=== PATIENT | female | born 1940 | race Caucasian/White ===

== ENCOUNTER 2016-12-27 10:48 | Inpatient (IN) | payer MEDICARE, MEDICAID ==
[~2016-12-27] VITALS: Ht 160 cm; Wt 111.6 kg
[~2016-12-27 10:48] MED LIST: ARIP5TAB13 PO; ASPI325T14 PO; ATOR40TA50 PO; CARV6.252 PO; FURO20TA3 PO; GABA400C10 PO; INSU100V SQ; INSU100V8 SQ; LISI-410 PO; LORA1TAB PO; MONT10TA9 PO; NITR0.4T SL; OXYB5TAB7 PO; PANT40TA5 PO; POTA20TA89 PO; POTA40LI3 PO; SERT100T5 PO; SOLI5TAB2 PO; SULF500T7 PO; TRAZ50TA18 PO
[2016-12-27] MEDS ORDERED: LOVENOX SQ STA (11:21)
[2016-12-27] MEDS ORDERED: RESTORIL PO PRN (11:30)
[2016-12-27] MEDS ORDERED: ZOFRAN IV PRN (11:30)
[2016-12-27] MEDS ORDERED: NS 1000ML 1,000 ML IV ONE (11:30)
[2016-12-27] MEDS: HUMULIN R SUBCUT SCH ×2 (12:00→18:00)
[2016-12-27] MEDS ORDERED: ATIVAN PO PRN (12:00)
--- NOTE | 2016-12-27 12:01 | PRM.PN ---
Course Notes 12/27/2016 1154 Because this patient had an aortic valve surgery at [facility] on Nov 05, 2016, discharge records from the facility as well as the last visit to the cardiothoracic surgeon have been requested and received. It appears there has been some miscommunication about her follow up with a fractionation plant supervisor, although she did stay for rehabilitation in [place] before her follow up with Dr. Childers on Dec 08, 2016. After that appointment, she was released to return home and follow with her previous fractionation plant supervisor, Dr. Capo Nuñez, in [place]. The patient wishes to not see him anymore, and does request that Dr. Booth accept her as a patient now. Records received indicate that at no time since her aortic valve procedure was she placed on anticoagulation therapy. At this time, the patient is being admitted to [facility] Med/Surg 312 for management of inadequate anticoagulation after mechanical heart valve and congestive heart failure. TAVO PAZ NP Dec 27, 2016 12:01
[2016-12-27 12:24] LABS: BASOPHIL % 0.5 % (0.0-0.2); EOSINOPHIL # 0.2 10^3/uL (0.0-0.2); EOSINOPHIL % 2.6 % (0.0-5.0); HEMOGLOBIN 10.7 g/dL (12.0-15.0); LYMPHOCYTES # 1.8 10^3/uL (1.0-4.8); LYMPHOCYTES % 24.1 % (24.0-44.0); MEAN CELL HGB 27.7 pg (26-34); MEAN CELL HGB CONCENTRATION 30.8 g/dL (33-37); MEAN CORP VOLUME 89.9 fL (78-100); MEAN PLATELET VOLUME 9.9 fL (7.8-11.0); MONOCYTES # 0.6 10^3/uL (0.3-0.8); MONOCYTES % 7.5 % (5.0-12.0); NEUTROPHILS % 65.3 % (41.0-85.0); PLATELET COUNT 264 10^3/uL (150-400); RED CELL DISTRIBUTION WIDTH 15.1 % (11.5-14.5); WHITE BLOOD CELL 7.6 10^3/uL (4.5-11.0)
[2016-12-27 12:43] VITALS: BP 154/80
[2016-12-27 12:56] LABS: CALCIUM 9.5 mg/dL (8.4-10.5); CARBON DIOXIDE 31.9 mmol/L (20.0-32)
--- NOTE | 2016-12-27 13:11 | PCM.HP ---
History of Present Illness History of Present Illness s 76 yo lady had Mechanical AV replacement in 11/05/16 in [facility], sent for sever . released home to follow up with Cardiolgy. presented today with progressive SOB, Edema, and weakness, medications reviewed and showed no AC for the mechanical prsthesis. pt denies any education or therapy on AC with AVR. exam showed a healed sternum, Mechanical click and sings of CHF ( razia crackles, elevated JVD and LE edema) pt needs admission to manage AC with AVR ( mechanical) and manage CHF. r/o valve thrombosis.. Past Medical History Cardiac: AFIB (on Amio), CHF, HTN, Aortic Stenosis (s/p AVR, Oct 2016) Pulmonary: Asthma, COPD GI: GERD Heme/Onc: Anemia NOS Musculoskeletal: Chronic Low Back Pain Renal/: Chronic Renal Insuff Past Social History Smoke: No Alcohol: rare Lives: Alone Travel Hx EBOLA RISK:Travel to/contact w: No Is pt experiencing any Ebola s: No Review of Systems Constitutional: Malaise Eyes: Pain ENT: No: Ear pain, Ear discharge, Nose pain, Nose discharge, Nose congestion, Mouth pain, Mouth swelling, Throat pain, Throat swelling, Other Respiratory: Shortness of breath, SOB with excertion Cardiovascular: Chest Pain, Edema Gastrointestinal: No: Nausea, Vomiting, Abdominal Pain, Diarrhea, Constipation , Melena, Hematochezia, Other Genitourinary: No Dysuria, Frequency, No Incontinence, No Hematuria, No Retention, No Other Musculoskeletal: No: other, neck pain, shoulder pain, arm pain, back pain, hand pain, leg pain, foot pain Skin: Bruising, No: Rash, Lesions, Jaundice, Other Allergies: Coded Allergies: Penicillins (Verified Allergy, Unknown, 05/02/14) codeine (Verified Allergy, Unknown, 05/02/14) morphine (Verified Allergy, Unknown, 05/02/14) Scheduled Aripiprazole (Abilify), 5 MG PO DAILY, (Reported) Atorvastatin Calcium (Atorvastatin Calcium), 40 MG PO HS, (Reported) Carvedilol (Carvedilol), 6.25 MG PO BID, (Reported) Furosemide (Furosemide), 20 MG PO DAILY, (Reported) Gabapentin (Gabapentin), 400 MG PO THREE TIMES DAILY, (Reported) Insulin Glargine,Hum.rec.anlog (Lantus), 40 UNIT SQ BID, (Reported) Insulin Lispro (Humalog), 100 UNIT SQ BID, (Reported) Lisinopril (Lisinopril), 20 MG PO DAILY, (Reported) Oxybutynin Chloride (Oxybutynin Chloride), 5 MG PO BID, (Reported) Pantoprazole Sodium (Pantoprazole Sodium), 40 MG PO DAILY, (Reported) Potassium Chloride (Potassium Chloride), 40 MEQ PO DAILY, (Reported) Sertraline Hcl (Sertraline Hcl), 100 MG PO BID, (Reported) Solifenacin Succinate (Vesicare), 5 MG PO DAILY, (Reported) Sulfasalazine (Sulfazine), 500 MG PO BID, (Reported) Trazodone Hcl (Trazodone Hcl), 50 MG PO HS, (Reported) Scheduled PRN Lorazepam (Lorazepam), 1 MG PO TID PRN, (Reported) Nitroglycerin (Nitrostat), 0.4 MG SL Q 15 MINUTES X3 DOSE PRN for CHEST PAIN, ( Reported) VTE VTE Risk Total Score: 4 VTE Risk Score VTE Risk: Score 0-1 = Low Risk (Aggressive mobilization; early ambulation; no VTE prophylaxis required) Score 2: Moderate Risk (Intermittent/Pneumatic Compression Device OR Lovenox/Heparin/Coumadin) Score 3-4: High Risk (Intermittent/Pneumatic Compression Device AND Lovenox/Heparin/Coumadin) Score > or =5: Highest Risk (Intermittent/Pneumatic Compression Device AND Lovenox/Heparin/Coumadin) Antico:Hep/LMWH/Coum/Xarelto: Yes (wt based Lovenox) VTE VTE Present on Admission: Yes Currently receiving anticoagul: No VTE Risk Total Score: 4 Exam Vital Signs Vital Signs Date Time Temp Pulse Resp B/P (MAP) Pulse Ox O2 Delivery O2 Flow Rate FiO2 12/27/16 12:44 Room Air 12/27/16 12:43 98.0 87 18 154/80 (104) 94 General Appearance: Alert, Oriented X3, Other (morbidly obese) HEENT: Atraumatic, Other (4 cm JVD) Cardiovascular: Other (mechanical click) Abdominal: Normal bowel sounds Extremities: No clubbing Skin: No rash Assessment/Plan Assessment/Plan Assessment/Plan -AVR- October 2016, require AC with Coumadin. bridging with Lovenox. high risk for Valve thrombosis, check operative records to examine findings and post op EF for AVR -Acute CHF -DM -HTN -Obesity -CAD Problems: Patient History: Alzheimer's disease 32 MOTHER, , Age:92 G8 BROTHER, , Age:64 G8 SISTER, , Age:63 Asthma 19 CHILD, Age:54 Chronic obstructive pulmonary disease G8 SISTER, , Age:63 Congestive heart failure 32 MOTHER, , Age:92 33 FATHER, , Age:61 G8 BROTHER, , Age:64 G8 SISTER, , Age:63 19 CHILD, , Age:40 Diabetes mellitus G8 SISTER, , Age:63 19 CHILD, Age:51 FH: bipolar disorder 32 MOTHER, , Age:92 FH: heart disease 32 MOTHER, , Age:92 33 FATHER, , Age:61 G8 BROTHER, , Age:64 G8 SISTER, , Age:63 19 CHILD, , Age:48 19 CHILD, , Age:40 19 CHILD, Age:54 FH: ovarian cancer 19 CHILD, Age:54 FH: schizophrenia 32 MOTHER, , Age:92 FH: uterine cancer 19 CHILD, Age:54 Hypertension G8 SISTER, , Age:63 19 CHILD, Age:54 No Family History of: Cerebrovascular disorder Diabetes insipidus Parkinson's disease CLIFF BARRY MD Dec 27, 2016 13:10
--- NOTE | 2016-12-27 13:31 | DIREP ---
PROCEDURE:CHEST 2 VIEWS COMPARISON:None. INDICATIONS:AORTIC VALVE REPLACEMENT FINDINGS: LUNGS/PLEURA:There is small to moderate left pleural effusion. VASCULATURE:Normal. Unremarkable pulmonary vasculature. CARDIAC:The patient has had aortic valve replacement surgery. The heart size is enlarged. MEDIASTINUM:Normal. No visible mass or adenopathy. BONES:Normal. No fracture or visible bony lesion. OTHER:Monitor leads are in place. CONCLUSION: 1. The patient has had aortic valve replacement surgery. 2. Small to moderate left pleural effusion. Dictated by: Galindo Vallecillo M.D. on 12/27/2016 at 01:43 PM
--- NOTE | 2016-12-27 13:43 | PCM.EKG ---
[facility] Test Date: 2016-12-27 Test Time: 13:45:36 Pat Name: JATIN CHAPA Department: Room: 312 A Gender: F Nematologist: RT : 1940 Requested By: CLEMENT BOOTH Order Number: [id number] Reading MD: Clement Booth Measurements Intervals [place] Rate: 84 P: 84 MT: 200 QRS: -49 QRSD: 92 T: 62 QT: 412 QTc: 486 Interpretive Statements Sinus rhythm with occasional premature ventricular complexes Left axis deviation Abnormal ECG No previous ECG available for comparison NONSPECIFIC REPOLARIZATION ABNORMALITIES Electronically Signed On 01-11-2017 8:46:29 CDT by Clement Booth Please click the below link to view image of tracing.
[2016-12-27] MEDS: NITRO-BID TD SCH ×2 (14:02→21:39)
[2016-12-27 14:11] LABS: ANISOCYTOSIS 1+ (NEGATIVE); EOSINOPHIL 3 % (1-4); LYMPHOCYTE 22 % (25-36); MONOCYTE 8 % (3-9); SEGMENTED NEUTROPHILS 67 % (31-76)
--- NOTE | 2016-12-27 15:08 | NUR ---
ADMISSION COMPLETED. PT IS UP IN BED RESTING AT THIS TIME. NO COMPLAINTS OF PAIN OR DISCOMFORT AT THIS TIME. CALL LIGHT IN REACH
[2016-12-27 17:33] VITALS: BP 145/65
--- NOTE | 2016-12-27 18:58 | NUR ---
REPORT GIVEN TO ONCOMING SHIFT
--- NOTE | 2016-12-27 19:33 | PCM.EKG ---
[facility] Test Date: 2016-12-27 Test Time: 19:32:08 Pat Name: JATIN CHAPA Department: Room: 312 A Gender: F [place] Sheriff: FELICITY : 1940 Requested By: CLEMENT BOOTH Order Number: [id number] Reading MD: Clement Booth Measurements Intervals [place] Rate: 91 P: 97 ME: 206 QRS: -43 QRSD: 90 T: 66 QT: 386 QTc: [address] DEPRESSIONSinus rhythm with frequent premature ventricular complexes Left axis deviation Anterior infarct, age undetermined Abnormal ECG No previous ECG available for comparison Electronically Signed On 01-11-2017 8:47:44 CDT by Clement Booth Please click the below link to view image of tracing.
[2016-12-27 20:36] VITALS: BP 122/52
[2016-12-27] MEDS ORDERED: HUMALOG SQ SCH (21:00)
[2016-12-27] MEDS: LOVENOX SQ SCH (21:39)
[2016-12-27] MEDS: AZULFIDINE PO SCH (21:40)
[2016-12-27] MEDS: NEURONTIN PO SCH (21:40)
[2016-12-27] MEDS: DITROPAN PO SCH (21:40)
[2016-12-27] MEDS: LIPITOR PO SCH (21:40)
[2016-12-27] MEDS: ZOLOFT PO SCH (21:40)
[2016-12-27] MEDS: DESYREL PO SCH (21:41)
[2016-12-27] MEDS: COREG PO SCH (21:41)
[2016-12-27] MEDS: LEVEMIR SQ SCH (21:44)
[2016-12-27] MEDS ORDERED: TYLENOL PO PRN (23:00)
[2016-12-28] VITALS: BP 105/55
[2016-12-28 03:30] LABS: BASOPHIL # 0.1 10^3/uL (0.0-0.1); BASOPHIL % 0.9 % (0.0-0.2); EOSINOPHIL # 0.3 10^3/uL (0.0-0.2); EOSINOPHIL % 4.3 % (0.0-5.0); LYMPHOCYTES # 2.3 10^3/uL (1.0-4.8); LYMPHOCYTES % 34.3 % (24.0-44.0); MEAN CELL HGB 27.6 pg (26-34); MEAN CELL HGB CONCENTRATION 30.7 g/dL (33-37); MEAN CORP VOLUME 89.9 fL (78-100); MEAN PLATELET VOLUME 9.7 fL (7.8-11.0); MONOCYTES # 0.5 10^3/uL (0.3-0.8); MONOCYTES % 7.5 % (5.0-12.0); NEUTROPHIL # 3.6 10^3/uL (1.8-7.7); PLATELET COUNT 213 10^3/uL (150-400); WHITE BLOOD CELL 6.8 10^3/uL (4.5-11.0)
--- NOTE | 2016-12-28 03:39 | PCM.EKG ---
[facility] Test Date: 2016-12-28 Test Time: 03:39:53 Pat Name: JATIN CHAPA Department: [id number] Room: 312 A Gender: F Final Application Reviewer: FELICITY : 1940 Requested By: CLEMENT BOOTH Order Number: [id number] Reading MD: Clement Booth Measurements Intervals [place] Rate: 75 P: 40 DC: 162 QRS: -42 QRSD: 100 T: 68 QT: 438 QTc: 489 Interpretive Statements Sinus rhythm Left axis deviation Low voltage QRS Abnormal ECG No previous ECG available for comparison NONSPECIFIC ST DEPRESSION Electronically Signed On 01-11-2017 8:48:04 CDT by Clement Booth Please click the below link to view image of tracing.
[2016-12-28 03:42] LABS: CALCIUM 8.8 mg/dL (8.4-10.5); CARBON DIOXIDE 32.9 mmol/L (20.0-32)
[2016-12-28 05:50] VITALS: BP 105/58
[2016-12-28] MEDS: NITRO-BID TD SCH ×3 (05:54→21:30)
--- NOTE | 2016-12-28 07:26 | NUR ---
REPORT RECEIVED FROM PARKING ENFORCEMENT TECHNICIAN
[2016-12-28 07:39] VITALS: BP 124/68
[2016-12-28] MEDS: HUMULIN R SUBCUT SCH ×3 (08:00→17:34)
[2016-12-28] MEDS: LOVENOX SQ SCH ×2 (08:11→21:02)
[2016-12-28] MEDS: NEURONTIN PO SCH ×2 (08:11→21:09)
[2016-12-28] MEDS: COREG PO SCH ×2 (08:12→21:04)
[2016-12-28] MEDS: ZESTRIL PO SCH (08:12)
[2016-12-28] MEDS: AZULFIDINE PO SCH ×2 (08:12→21:03)
[2016-12-28] MEDS: PROTONIX PO SCH (08:12)
[2016-12-28] MEDS: DITROPAN PO SCH ×2 (08:13→21:07)
[2016-12-28] MEDS: KLOR-CON 10 PO SCH (08:13)
[2016-12-28] MEDS: LEVEMIR SQ SCH ×2 (08:17→21:01)
[2016-12-28] MEDS: ABILIFY PO SCH (08:18)
[2016-12-28] MEDS ORDERED: LIPITOR PO SCH (09:00)
[2016-12-28] MEDS ORDERED: LASIX PO SCH (09:00)
[2016-12-28] MEDS ORDERED: PROTONIX PO SCH (09:00)
[2016-12-28] MEDS: ZOLOFT PO SCH ×2 (09:00→21:11)
[2016-12-28 12:52] VITALS: BP 131/61
[2016-12-28 15:42] LABS: BASOPHIL % 0.5 % (0.0-0.2); EOSINOPHIL # 0.2 10^3/uL (0.0-0.2); EOSINOPHIL % 3.3 % (0.0-5.0); HEMOGLOBIN 9.3 g/dL (12.0-15.0); LYMPHOCYTES # 1.9 10^3/uL (1.0-4.8); LYMPHOCYTES % 30.1 % (24.0-44.0); MEAN CELL HGB 27.4 pg (26-34); MEAN CELL HGB CONCENTRATION 30.3 g/dL (33-37); MEAN CORP VOLUME 90.3 fL (78-100); MONOCYTES # 0.5 10^3/uL (0.3-0.8); MONOCYTES % 8.2 % (5.0-12.0); NEUTROPHIL # 3.7 10^3/uL (1.8-7.7); NEUTROPHILS % 57.7 % (41.0-85.0); RED CELL DISTRIBUTION WIDTH 15.1 % (11.5-14.5); WHITE BLOOD CELL 6.4 10^3/uL (4.5-11.0)
[2016-12-28 16:04] LABS: CALCIUM 8.7 mg/dL (8.4-10.5); CARBON DIOXIDE 30.1 mmol/L (20.0-32)
[2016-12-28 17:04] VITALS: BP 106/62
--- NOTE | 2016-12-28 18:30 | NUR ---
STATUS PT RESTING IN BED AT THIS TIME. PT HAS NOT C/O PAIN OR DISCOMFORT THROUGHOUT MY SHIFT. PT HAS FRIEND AT BEDSIDE.
--- NOTE | 2016-12-28 18:50 | NUR ---
Report received from Antonio - Transfer of patient care.
--- NOTE | 2016-12-28 19:45 | NUR ---
PLATING INSPECTOR assessment completed at this time - Patient with adopted daughter here visiting. Adopted daughter staying night with patient - Recliner brought to room for visitor per patient's request.
[2016-12-28 20:00] VITALS: BP 126/58
[2016-12-28] MEDS ORDERED: COUMADIN PO SCH (21:00)
[2016-12-28] MEDS: DESYREL PO SCH (21:07)
[2016-12-28] MEDS: LASIX PO SCH (21:09)
[2016-12-28] MEDS: LIPITOR PO SCH (21:09)
--- NOTE | 2016-12-28 21:30 | NUR ---
PM MEDS PM medications given to patient with purpose and side effects discussed - Monograph given to patient for reinforcement of purpose and side effects.
--- NOTE | 2016-12-28 23:12 | NUR ---
SLEEPING Patient appears sleeping - Resp even and non labored - No S/S of distress noted.
[2016-12-29] VITALS: BP 128/60
--- NOTE | 2016-12-29 01:37 | NUR ---
STATUS Patient sitting up in bed - Adopted daughter in bedside chair - Patient appears to be looking at phone - Denies any needs at this time.
--- NOTE | 2016-12-29 04:23 | NUR ---
STATUS Patient appears sleeping - Resp even and non labored - No S/S of distress noted.
[2016-12-29 04:42] VITALS: BP 111/50
[2016-12-29 05:32] LABS: BASOPHIL % 0.6 % (0.0-0.2); EOSINOPHIL # 0.2 10^3/uL (0.0-0.2); EOSINOPHIL % 3.3 % (0.0-5.0); HEMOGLOBIN 9.4 g/dL (12.0-15.0); LYMPHOCYTES % 31.3 % (24.0-44.0); MEAN CELL HGB CONCENTRATION 29.7 g/dL (33-37); MEAN CORP VOLUME 90.8 fL (78-100); MEAN PLATELET VOLUME 9.7 fL (7.8-11.0); MONOCYTES # 0.6 10^3/uL (0.3-0.8); MONOCYTES % 8.9 % (5.0-12.0); NEUTROPHIL # 3.6 10^3/uL (1.8-7.7); NEUTROPHILS % 55.6 % (41.0-85.0); RED CELL DISTRIBUTION WIDTH 15.2 % (11.5-14.5); WHITE BLOOD CELL 6.4 10^3/uL (4.5-11.0)
[2016-12-29 05:46] LABS: CALCIUM 9.4 mg/dL (8.4-10.5); CARBON DIOXIDE 30.6 mmol/L (20.0-32)
[2016-12-29] MEDS: NITRO-BID TD SCH ×3 (05:52→22:02)
--- NOTE | 2016-12-29 05:52 | NUR ---
MEDS Nitro Paste removed from right upper chest and disposed of properly - New Nitro Paste 1 inch applied to paper and applied to left upper chest - Purpose and side effects reinforced with patient. Patient verbalized understanding of all.
--- NOTE | 2016-12-29 06:34 | NUR ---
REPORT Report given to Jessica - Transfer of patient care.
[2016-12-29] MEDS: HUMULIN R SUBCUT SCH ×3 (06:55→17:00)
--- NOTE | 2016-12-29 08:31 | NUR ---
DISCHARGE PLANNING: SS VISITED WITH PT AND DAUGHTER REGARDING DISCHARGE PLANNING NEEDS. PT LIVES HOME ALONE, BUT DAUGHTER CHECKS ON OFTEN. PT HAS ALL DME IN PLACE WHICH CONSIST OF WALKER, CANE, WHEEL CHAIR, POWER CHAIR, AND SHOWER BENCH. PT HAS [facility] IN PLACE FOR ASSISTED AND PT STATED THEY WERE ABOUT TO START PHYSICAL THERAPY BEFORE SHE WAS ADMITTED. SS LET PT KNOW SHE WOULD NOTIFY [facility] OF ADMISSION AND UPON DISCHARGE FAX OVER UPDATED CLINICAL SO THEY COULD HAVE IT. NO FURTHER NEEDS NOTED OR IDENTIFIED AT THIS TIME. SS TO CONTINUE TO FOLLOW AND MONITOR DISCHARGE PLANNING NEEDS.
[2016-12-29] MEDS: LEVEMIR SQ SCH ×2 (09:00→22:01)
[2016-12-29] MEDS: ABILIFY PO SCH (09:00)
[2016-12-29] MEDS: LOVENOX SQ SCH ×2 (09:22→21:56)
[2016-12-29] MEDS: PROTONIX PO SCH (09:22)
[2016-12-29] MEDS: DITROPAN PO SCH ×2 (09:22→22:01)
[2016-12-29] MEDS: AZULFIDINE PO SCH ×2 (09:23→22:02)
[2016-12-29] MEDS: ZESTRIL PO SCH (09:23)
[2016-12-29] MEDS: NEURONTIN PO SCH ×2 (09:23→21:55)
[2016-12-29] MEDS: COREG PO SCH ×2 (09:24→21:55)
[2016-12-29] MEDS: LASIX PO SCH ×2 (09:24→21:56)
[2016-12-29] MEDS: ZOLOFT PO SCH ×2 (09:24→22:01)
[2016-12-29] MEDS ORDERED: COUMADIN ONE (09:28)
[2016-12-29] MEDS: KLOR-CON 10 PO SCH (09:30)
[2016-12-29] MEDS: COUMADIN PO SCH ×2 (09:34→22:02)
[2016-12-29 11:54] VITALS: BP_SYST 119; BP_SYST 121; BP_DIAS 45; BP_DIAS 69
--- NOTE | 2016-12-29 12:39 | PRM.PN ---
Subjective Subjective Date: Dec 28, 2016 Time: 10:45 Subjective Patient is sitting up, talking with friend. Denies complaints. Patient History: Alzheimer's disease 32 MOTHER, , Age:92 G8 BROTHER, , Age:64 G8 SISTER, , Age:63 Asthma 19 CHILD, Age:54 Chronic obstructive pulmonary disease G8 SISTER, , Age:63 Congestive heart failure 32 MOTHER, , Age:92 33 FATHER, , Age:61 G8 BROTHER, , Age:64 G8 SISTER, , Age:63 19 CHILD, , Age:40 Diabetes mellitus G8 SISTER, , Age:63 19 CHILD, Age:51 FH: bipolar disorder 32 MOTHER, , Age:92 FH: heart disease 32 MOTHER, , Age:92 33 FATHER, , Age:61 G8 BROTHER, , Age:64 G8 SISTER, , Age:63 19 CHILD, , Age:48 19 CHILD, , Age:40 19 CHILD, Age:54 FH: ovarian cancer 19 CHILD, Age:54 FH: schizophrenia 32 MOTHER, , Age:92 FH: uterine cancer 19 CHILD, Age:54 Hypertension G8 SISTER, , Age:63 19 CHILD, Age:54 No Family History of: Cerebrovascular disorder Diabetes insipidus Parkinson's disease VTE VTE Risk Total Score: 4 VTE Risk Score VTE Risk: Score 0-1 = Low Risk (Aggressive mobilization; early ambulation; no VTE prophylaxis required) Score 2: Moderate Risk (Intermittent/Pneumatic Compression Device OR Lovenox/Heparin/Coumadin) Score 3-4: High Risk (Intermittent/Pneumatic Compression Device AND Lovenox/Heparin/Coumadin) Score > or =5: Highest Risk (Intermittent/Pneumatic Compression Device AND Lovenox/Heparin/Coumadin) Antico:Hep/LMWH/Coum/Xarelto: Yes (wt based Lovenox) Review of Systems Constitutional: Malaise Eyes: Pain ENT: No: Ear pain, Ear discharge, Nose pain, Nose discharge, Nose congestion, Mouth pain, Mouth swelling, Throat pain, Throat swelling, Other Respiratory: Shortness of breath, SOB with excertion Cardiovascular: Chest Pain, Edema Gastrointestinal: No: Nausea, Vomiting, Abdominal Pain, Diarrhea, Constipation , Melena, Hematochezia, Other Genitourinary: No Dysuria, Frequency, No Incontinence, No Hematuria, No Retention, No Other Musculoskeletal: No: other, neck pain, shoulder pain, arm pain, back pain, hand pain, leg pain, foot pain Skin: Bruising, No: Rash, Lesions, Jaundice, Other Allergies: Coded Allergies: Penicillins (Verified Allergy, Unknown, 05/02/14) codeine (Verified Allergy, Unknown, 05/02/14) morphine (Verified Allergy, Unknown, 05/02/14) Scheduled Aripiprazole (Abilify), 5 MG PO DAILY, (Reported) Atorvastatin Calcium (Atorvastatin Calcium), 40 MG PO HS, (Reported) Carvedilol (Carvedilol), 6.25 MG PO BID, (Reported) Furosemide (Furosemide), 20 MG PO DAILY, (Reported) Gabapentin (Gabapentin), 400 MG PO THREE TIMES DAILY, (Reported) Insulin Glargine,Hum.rec.anlog (Lantus), 40 UNIT SQ BID, (Reported) Insulin Lispro (Humalog), 100 UNIT SQ BID, (Reported) Lisinopril (Lisinopril), 20 MG PO DAILY, (Reported) Oxybutynin Chloride (Oxybutynin Chloride), 5 MG PO BID, (Reported) Pantoprazole Sodium (Pantoprazole Sodium), 40 MG PO DAILY, (Reported) Potassium Chloride (Potassium Chloride), 40 MEQ PO DAILY, (Reported) Sertraline Hcl (Sertraline Hcl), 100 MG PO BID, (Reported) Solifenacin Succinate (Vesicare), 5 MG PO DAILY, (Reported) Sulfasalazine (Sulfazine), 500 MG PO BID, (Reported) Trazodone Hcl (Trazodone Hcl), 50 MG PO HS, (Reported) Scheduled PRN Lorazepam (Lorazepam), 1 MG PO TID PRN, (Reported) Nitroglycerin (Nitrostat), 0.4 MG SL Q 15 MINUTES X3 DOSE PRN for CHEST PAIN, ( Reported) Objective Vitals and I/O Vital Sign - Last 24 Hours 12/28/16 12/28/16 12/28/16 12/28/16 12:52 17:04 19:30 20:00 Temp 98.0 97.9 98.2 Pulse 70 86 70 Resp 18 18 18 B/P (MAP) 131/61 (84) 106/62 (77) 126/58 (80) Pulse Ox 95 92 90 O2 Delivery Room Air Room Air Room Air Room Air 12/28/16 12/28/16 12/28/16 12/29/16 20:48 21:04 21:09 00:00 Temp 98.3 Pulse 86 86 80 Resp 18 18 B/P (MAP) 126/58 126/58 128/60 (82) Pulse Ox 92 90 O2 Delivery Room Air Room Air 12/29/16 12/29/16 12/29/16 12/29/16 04:42 06:50 09:23 09:24 Temp 98.2 Pulse 63 73 Resp 18 B/P (MAP) 111/50 (70) 142/77 142/77 Pulse Ox 94 O2 Delivery Room Air Room Air 12/29/16 12/29/16 09:24 11:54 Temp 97.8 Pulse 72 Resp 18 B/P (MAP) 142/77 119/45 (69) Pulse Ox 91 O2 Delivery Room Air General: Alert, Oriented X3, Cooperative, No acute distress Lungs: Clear to auscultation Extremities: No cyanosis Neuro: Normal speech, Normal tone Psych/Mental Status: Mental status NL, Mood NL Medication Reconciliation Scheduled Aripiprazole (Abilify), 5 MG PO DAILY, (Reported) Atorvastatin Calcium (Atorvastatin Calcium), 40 MG PO HS, (Reported) Carvedilol (Carvedilol), 6.25 MG PO BID, (Reported) Furosemide (Furosemide), 20 MG PO DAILY, (Reported) Gabapentin (Gabapentin), 400 MG PO THREE TIMES DAILY, (Reported) Insulin Glargine,Hum.rec.anlog (Lantus), 40 UNIT SQ BID, (Reported) Insulin Lispro (Humalog), 100 UNIT SQ BID, (Reported) Lisinopril (Lisinopril), 20 MG PO DAILY, (Reported) Oxybutynin Chloride (Oxybutynin Chloride), 5 MG PO BID, (Reported) Pantoprazole Sodium (Pantoprazole Sodium), 40 MG PO DAILY, (Reported) Potassium Chloride (Potassium Chloride), 40 MEQ PO DAILY, (Reported) Sertraline Hcl (Sertraline Hcl), 100 MG PO BID, (Reported) Solifenacin Succinate (Vesicare), 5 MG PO DAILY, (Reported) Sulfasalazine (Sulfazine), 500 MG PO BID, (Reported) Trazodone Hcl (Trazodone Hcl), 50 MG PO HS, (Reported) Scheduled PRN Lorazepam (Lorazepam), 1 MG PO TID PRN, (Reported) Nitroglycerin (Nitrostat), 0.4 MG SL Q 15 MINUTES X3 DOSE PRN for CHEST PAIN, ( Reported) Assessment/Plan Assessment/Plan Problems: (1) CAD (coronary artery disease) Status: Chronic ICD Code: I25.10 - Atherosclerotic heart disease of [place] coronary artery without angina pectoris SNOMED: 65362233 (2) Aortic valve replaced ICD Code: Z95.2 - Presence of prosthetic heart valve SNOMED: 72257050, 191682212, [id number], [id number] Patient History: Alzheimer's disease 32 MOTHER, , Age:92 G8 BROTHER, , Age:64 G8 SISTER, , Age:63 Asthma 19 CHILD, Age:54 Chronic obstructive pulmonary disease G8 SISTER, , Age:63 Congestive heart failure 32 MOTHER, , Age:92 33 FATHER, , Age:61 G8 BROTHER, , Age:64 G8 SISTER, , Age:63 19 CHILD, , Age:40 Diabetes mellitus G8 SISTER, , Age:63 19 CHILD, Age:51 FH: bipolar disorder 32 MOTHER, , Age:92 FH: heart disease 32 MOTHER, , Age:92 33 FATHER, , Age:61 G8 BROTHER, , Age:64 G8 SISTER, , Age:63 19 CHILD, , Age:48 19 CHILD, , Age:40 19 CHILD, Age:54 FH: ovarian cancer 19 CHILD, Age:54 FH: schizophrenia 32 MOTHER, , Age:92 FH: uterine cancer 19 CHILD, Age:54 Hypertension G8 SISTER, , Age:63 19 CHILD, Age:54 No Family History of: Cerebrovascular disorder Diabetes insipidus Parkinson's disease Plan Patient is advised that we are keeping her in the hospital during initial anticoagulation for monitoring. She is receiving Lovenox for bridging and Coumadin, with the goal of INR 2.5. Denies any pain, distress. TAVO PAZ NP Dec 29, 2016 12:39
--- NOTE | 2016-12-29 14:26 | ECHO ---
DATE OF SERVICE: 12/27/2016 INDICATIONS: A 76-year-old lady with CHF, edema and history of aortic valve surgery, admitted for further evaluation and treatment of CHF and anticoagulation treatment. FINDINGS: 1. The study was fair in quality. 2. The underlying rhythm is sinus rhythm. 3. LV function was preserved. EF around 50%, mild concentric LVH. LV dimensions were normal. No LVOT obstruction. No dilatation. 4. RV size and EF were normal. 5. Atrial size was normal. 6. Mitral valve showed mitral calcification, trace regurgitation, no stenosis with grade 1 diastolic dysfunction with E to A reversal. The mitral valve gradient was around 4 mmHg. No stenosis. The calcification level is moderate. The gradient across the valve ruled out stenosis. 7. Aortic valve showed a prosthesis in the aortic location likely tissue valve, no regurgitation, no perivalvular leak noted. The valve showed normal function. 8. Trace tricuspid regurgitation. PA pressure was around 30-35 mmHg. 9. No visible pericardial effusion. 10. Inferior vena cava was normal in size at 1.5 cm. IMPRESSION: 1. Preserved EF around 50%. 2. Minimal concentric LVH. 3. Normal LV dimension and no visible masses or clots. 4. Normal RV size and EF. 5. Normal atrial size. 6. Moderate mitral calcification with trace regurgitation, no stenosis. 7. Grade 1 diastolic dysfunction. 8. Tissue prosthesis in the aortic location, normal function, no perivalvular leak. No regurgitation. 9. Normal PA pressure. 10. No pericardial effusion. 11. Normal IVC size. 12. The underlying rhythm is sinus rhythm. Clement Booth MD DR: ZULY/henrik JOB# [id number]
--- NOTE | 2016-12-29 14:52 | PRM.PN ---
Subjective Subjective Date: Dec 29, 2016 Time: 09:21 Subjective Patient has no complaints at this time. She is sitting up eating breakfast. Friend in room as well. VTE VTE Risk Total Score: 4 VTE Risk Score VTE Risk: Score 0-1 = Low Risk (Aggressive mobilization; early ambulation; no VTE prophylaxis required) Score 2: Moderate Risk (Intermittent/Pneumatic Compression Device OR Lovenox/Heparin/Coumadin) Score 3-4: High Risk (Intermittent/Pneumatic Compression Device AND Lovenox/Heparin/Coumadin) Score > or =5: Highest Risk (Intermittent/Pneumatic Compression Device AND Lovenox/Heparin/Coumadin) Antico:Hep/LMWH/Coum/Xarelto: Yes (wt based Lovenox) Review of Systems Constitutional: Malaise Eyes: Pain ENT: No: Ear pain, Ear discharge, Nose pain, Nose discharge, Nose congestion, Mouth pain, Mouth swelling, Throat pain, Throat swelling, Other Respiratory: Shortness of breath, SOB with excertion Cardiovascular: Chest Pain, Edema Gastrointestinal: No: Nausea, Vomiting, Abdominal Pain, Diarrhea, Constipation , Melena, Hematochezia, Other Genitourinary: No Dysuria, Frequency, No Incontinence, No Hematuria, No Retention, No Other Musculoskeletal: No: other, neck pain, shoulder pain, arm pain, back pain, hand pain, leg pain, foot pain Skin: Bruising, No: Rash, Lesions, Jaundice, Other Allergies: Coded Allergies: Penicillins (Verified Allergy, Unknown, 05/02/14) codeine (Verified Allergy, Unknown, 05/02/14) morphine (Verified Allergy, Unknown, 05/02/14) Scheduled Aripiprazole (Abilify), 5 MG PO DAILY, (Reported) Atorvastatin Calcium (Atorvastatin Calcium), 40 MG PO HS, (Reported) Carvedilol (Carvedilol), 6.25 MG PO BID, (Reported) Furosemide (Furosemide), 20 MG PO DAILY, (Reported) Gabapentin (Gabapentin), 400 MG PO THREE TIMES DAILY, (Reported) Insulin Glargine,Hum.rec.anlog (Lantus), 40 UNIT SQ BID, (Reported) Insulin Lispro (Humalog), 100 UNIT SQ BID, (Reported) Lisinopril (Lisinopril), 20 MG PO DAILY, (Reported) Oxybutynin Chloride (Oxybutynin Chloride), 5 MG PO BID, (Reported) Pantoprazole Sodium (Pantoprazole Sodium), 40 MG PO DAILY, (Reported) Potassium Chloride (Potassium Chloride), 40 MEQ PO DAILY, (Reported) Sertraline Hcl (Sertraline Hcl), 100 MG PO BID, (Reported) Solifenacin Succinate (Vesicare), 5 MG PO DAILY, (Reported) Sulfasalazine (Sulfazine), 500 MG PO BID, (Reported) Trazodone Hcl (Trazodone Hcl), 50 MG PO HS, (Reported) Scheduled PRN Lorazepam (Lorazepam), 1 MG PO TID PRN, (Reported) Nitroglycerin (Nitrostat), 0.4 MG SL Q 15 MINUTES X3 DOSE PRN for CHEST PAIN, ( Reported) Objective Vitals and I/O Vital Sign - Last 24 Hours 12/28/16 12/28/16 12/28/16 12/28/16 17:04 19:30 20:00 20:48 Temp 97.9 98.2 Pulse 86 70 86 Resp 18 18 18 B/P (MAP) 106/62 (77) 126/58 (80) Pulse Ox 92 90 92 O2 Delivery Room Air Room Air Room Air Room Air 12/28/16 12/28/16 12/29/16 12/29/16 21:04 21:09 00:00 04:42 Temp 98.3 98.2 Pulse 86 80 63 Resp 18 18 B/P (MAP) 126/58 126/58 128/60 (82) 111/50 (70) Pulse Ox 90 94 O2 Delivery Room Air Room Air 12/29/16 12/29/16 12/29/16 12/29/16 06:50 09:00 09:23 09:24 Pulse 94 73 Resp 16 B/P (MAP) 142/77 142/77 Pulse Ox 96 O2 Delivery Room Air Room Air FiO2 21 12/29/16 12/29/16 09:24 11:54 Temp 97.8 Pulse 72 Resp 18 B/P (MAP) 142/77 119/45 (69) Pulse Ox 91 O2 Delivery Room Air General: Alert, Oriented X3, Cooperative, No acute distress HEENT: Mucous membr. moist/pink Neck: Supple Lungs: Clear to auscultation Heart: Regular rate Extremities: No cyanosis Skin: No breakdown Neuro: Normal speech, Normal tone Psych/Mental Status: Mental status NL, Mood NL Medication Reconciliation Scheduled Aripiprazole (Abilify), 5 MG PO DAILY, (Reported) Atorvastatin Calcium (Atorvastatin Calcium), 40 MG PO HS, (Reported) Carvedilol (Carvedilol), 6.25 MG PO BID, (Reported) Furosemide (Furosemide), 20 MG PO DAILY, (Reported) Gabapentin (Gabapentin), 400 MG PO THREE TIMES DAILY, (Reported) Insulin Glargine,Hum.rec.anlog (Lantus), 40 UNIT SQ BID, (Reported) Insulin Lispro (Humalog), 100 UNIT SQ BID, (Reported) Lisinopril (Lisinopril), 20 MG PO DAILY, (Reported) Oxybutynin Chloride (Oxybutynin Chloride), 5 MG PO BID, (Reported) Pantoprazole Sodium (Pantoprazole Sodium), 40 MG PO DAILY, (Reported) Potassium Chloride (Potassium Chloride), 40 MEQ PO DAILY, (Reported) Sertraline Hcl (Sertraline Hcl), 100 MG PO BID, (Reported) Solifenacin Succinate (Vesicare), 5 MG PO DAILY, (Reported) Sulfasalazine (Sulfazine), 500 MG PO BID, (Reported) Trazodone Hcl (Trazodone Hcl), 50 MG PO HS, (Reported) Scheduled PRN Lorazepam (Lorazepam), 1 MG PO TID PRN, (Reported) Nitroglycerin (Nitrostat), 0.4 MG SL Q 15 MINUTES X3 DOSE PRN for CHEST PAIN, ( Reported) Assessment/Plan Assessment/Plan Problems: (1) Aortic valve replaced Status: Chronic ICD Code: Z95.2 - Presence of prosthetic heart valve SNOMED: 57287225, 769735697, 763626840, [id number] (2) CAD (coronary artery disease) Status: Chronic SEVERITY: MILD PERSISTENT ICD Code: I25.10 - Atherosclerotic heart disease of [place] coronary artery without angina pectoris SNOMED: 29189560 Plan Patient is still receiving anticoagulation in order to meet minimum for post- aortic valve replacement. Valve was a [address] Ye Trifecta tissue. SHAHID ligation with 35 mm Atriclip. Procedure was done 11/05/16. Problem Qualifiers (1) CAD (coronary artery disease): Coronary Disease-Associated Artery/Lesion type: [place] artery [place] vs. transplanted heart: [place] heart Associated angina: without angina Qualified Codes: I25.10 - Atherosclerotic heart disease of [place] coronary artery without angina pectoris TAVO PAZ NP Dec 29, 2016 14:52
[2016-12-29 15:59] VITALS: BP 100/47
--- NOTE | 2016-12-29 18:38 | NUR ---
ASSUMED CARE. ASSESSMENT INITIATED
--- NOTE | 2016-12-29 18:38 | NUR ---
REPORT REPORT GIVEN TO MUSEUM EDUCATOR RN TO ASSUME CARE
--- NOTE | 2016-12-29 19:58 | NUR ---
FSBS 160 MG/DL
[2016-12-29 20:00] VITALS: BP 128/68
[2016-12-29 20:50] VITALS: BP 151/66
--- NOTE | 2016-12-29 20:50 | NUR ---
VITAL SIGNS STABLE. AWSSESSMENT COMPLETED AND WITHIN NORMAL LIMTS. SEE FLOW
--- NOTE | 2016-12-29 21:50 | NUR ---
SANDWICH SNACK GIVEN ATE APPROXIMATELY 50%, TOLERATED ALL
[2016-12-29] MEDS: LIPITOR PO SCH (21:55)
[2016-12-29] MEDS: DESYREL PO SCH (22:01)
--- NOTE | 2016-12-29 22:02 | NUR ---
PM MEDS ADMINISTERED. SEE MAR.
[2016-12-30] VITALS: BP 116/60
[2016-12-30 04:29] VITALS: BP 129/58
[2016-12-30 05:21] LABS: BASOPHIL % 0.7 % (0.0-0.2); EOSINOPHIL # 0.2 10^3/uL (0.0-0.2); HEMOGLOBIN 9.5 g/dL (12.0-15.0); LYMPHOCYTES # 1.9 10^3/uL (1.0-4.8); LYMPHOCYTES % 32.5 % (24.0-44.0); MEAN CELL HGB 27.1 pg (26-34); MEAN CELL HGB CONCENTRATION 29.9 g/dL (33-37); MEAN CORP VOLUME 90.6 fL (78-100); MEAN PLATELET VOLUME 10.2 fL (7.8-11.0); MONOCYTES # 0.5 10^3/uL (0.3-0.8); MONOCYTES % 9.3 % (5.0-12.0); NEUTROPHIL # 3.1 10^3/uL (1.8-7.7); NEUTROPHILS % 53.2 % (41.0-85.0); RED CELL DISTRIBUTION WIDTH 15.3 % (11.5-14.5); WHITE BLOOD CELL 5.8 10^3/uL (4.5-11.0)
[2016-12-30 05:38] LABS: CALCIUM 9.1 mg/dL (8.4-10.5); CARBON DIOXIDE 29.1 mmol/L (20.0-32)
--- NOTE | 2016-12-30 06:00 | NUR ---
FSBS 128mg/dl.
[2016-12-30] MEDS: NITRO-BID TD SCH ×3 (06:10→21:47)
--- NOTE | 2016-12-30 06:10 | NUR ---
BP 137/70, old Nitrobid on left upper chest removed, site cleaned with damp cloth. NEW NITORBID 1 GM APPLIED TO RIGHT UPPER CHEST, SECURED WITH SILK TAPE.
--- NOTE | 2016-12-30 07:00 | NUR ---
NO CHANGE IN STATUS. ENDORSED TO ONCOMING SHIFT
[2016-12-30] MEDS: HUMULIN R SUBCUT SCH ×3 (07:24→17:37)
[2016-12-30 07:36] VITALS: BP 137/70
[2016-12-30] MEDS: PROTONIX PO SCH (08:55)
[2016-12-30] MEDS: DITROPAN PO SCH ×2 (08:55→21:14)
[2016-12-30] MEDS: NEURONTIN PO SCH ×2 (08:55→21:14)
[2016-12-30] MEDS: ZOLOFT PO SCH ×2 (08:56→21:14)
[2016-12-30] MEDS: ZESTRIL PO SCH (08:56)
[2016-12-30] MEDS: KLOR-CON 10 PO SCH (08:56)
[2016-12-30] MEDS: COREG PO SCH ×2 (08:56→21:14)
[2016-12-30] MEDS: LASIX PO SCH ×2 (08:57→21:13)
[2016-12-30] MEDS: AZULFIDINE PO SCH ×2 (08:58→21:13)
[2016-12-30] MEDS: LOVENOX SQ SCH ×2 (08:58→21:15)
[2016-12-30] MEDS: ABILIFY PO SCH (09:00)
[2016-12-30] MEDS: LEVEMIR SQ SCH ×2 (09:00→21:28)
[2016-12-30] MEDS: COUMADIN PO SCH (09:03)
[2016-12-30 11:53] VITALS: BP 140/71
--- NOTE | 2016-12-30 13:12 | PRM.PN ---
Subjective Subjective Date: Dec 30, 2016 Time: 13:08 Subjective See history for this patient - aortic valve replacement about six weeks ago, needing anticoagulation. Morning INR was 1.2, still not adequate for warfarin coverage. Patient would really like to go home, but agrees to stay until tomorrow's lab to see if increasing warfarin dose will increase the INR. Otherwise, will consider patient going home on Lovenox to bridge. VTE VTE Risk Total Score: 4 VTE Risk Score VTE Risk: Score 0-1 = Low Risk (Aggressive mobilization; early ambulation; no VTE prophylaxis required) Score 2: Moderate Risk (Intermittent/Pneumatic Compression Device OR Lovenox/Heparin/Coumadin) Score 3-4: High Risk (Intermittent/Pneumatic Compression Device AND Lovenox/Heparin/Coumadin) Score > or =5: Highest Risk (Intermittent/Pneumatic Compression Device AND Lovenox/Heparin/Coumadin) Antico:Hep/LMWH/Coum/Xarelto: Yes (wt based Lovenox) Review of Systems Constitutional: Malaise Eyes: Pain ENT: No: Ear pain, Ear discharge, Nose pain, Nose discharge, Nose congestion, Mouth pain, Mouth swelling, Throat pain, Throat swelling, Other Respiratory: Shortness of breath, SOB with excertion Cardiovascular: Chest Pain, Edema Gastrointestinal: No: Nausea, Vomiting, Abdominal Pain, Diarrhea, Constipation , Melena, Hematochezia, Other Genitourinary: No Dysuria, Frequency, No Incontinence, No Hematuria, No Retention, No Other Musculoskeletal: No: other, neck pain, shoulder pain, arm pain, back pain, hand pain, leg pain, foot pain Skin: Bruising, No: Rash, Lesions, Jaundice, Other Allergies: Coded Allergies: Penicillins (Verified Allergy, Unknown, 05/02/14) codeine (Verified Allergy, Unknown, 05/02/14) morphine (Verified Allergy, Unknown, 05/02/14) Scheduled Aripiprazole (Abilify), 5 MG PO DAILY, (Reported) Atorvastatin Calcium (Atorvastatin Calcium), 40 MG PO HS, (Reported) Carvedilol (Carvedilol), 6.25 MG PO BID, (Reported) Furosemide (Furosemide), 20 MG PO DAILY, (Reported) Gabapentin (Gabapentin), 400 MG PO THREE TIMES DAILY, (Reported) Insulin Glargine,Hum.rec.anlog (Lantus), 40 UNIT SQ BID, (Reported) Insulin Lispro (Humalog), 100 UNIT SQ BID, (Reported) Lisinopril (Lisinopril), 20 MG PO DAILY, (Reported) Oxybutynin Chloride (Oxybutynin Chloride), 5 MG PO BID, (Reported) Pantoprazole Sodium (Pantoprazole Sodium), 40 MG PO DAILY, (Reported) Potassium Chloride (Potassium Chloride), 40 MEQ PO DAILY, (Reported) Sertraline Hcl (Sertraline Hcl), 100 MG PO BID, (Reported) Solifenacin Succinate (Vesicare), 5 MG PO DAILY, (Reported) Sulfasalazine (Sulfazine), 500 MG PO BID, (Reported) Trazodone Hcl (Trazodone Hcl), 50 MG PO HS, (Reported) Scheduled PRN Lorazepam (Lorazepam), 1 MG PO TID PRN, (Reported) Nitroglycerin (Nitrostat), 0.4 MG SL Q 15 MINUTES X3 DOSE PRN for CHEST PAIN, ( Reported) Objective Vitals and I/O Vital Sign - Last 24 Hours 12/29/16 12/29/16 12/29/16 12/29/16 15:59 20:00 20:50 20:50 Temp 97.8 98.8 98.3 Pulse 73 76 74 Resp 18 18 17 B/P (MAP) 100/47 (64) 128/68 (88) 151/66 (94) Pulse Ox 97 91 94 O2 Delivery Room Air Room Air Room Air Room Air 12/29/16 12/29/16 12/29/16 12/30/16 21:21 21:55 21:56 00:00 Temp 97.9 Pulse 76 76 86 Resp 18 18 B/P (MAP) 128/68 128/68 116/60 (78) Pulse Ox 91 93 O2 Delivery Room Air Room Air 12/30/16 12/30/16 12/30/16 12/30/16 04:29 07:36 08:56 08:56 Temp 98.3 98.1 Pulse 70 74 74 Resp 18 18 B/P (MAP) 129/58 (81) 137/70 (92) 137/70 137/70 Pulse Ox 92 92 O2 Delivery Room Air Room Air 12/30/16 12/30/16 12/30/16 12/30/16 08:57 09:08 10:22 11:53 Temp 98.4 Pulse 73 72 Resp 18 18 B/P (MAP) 137/70 140/71 (94) Pulse Ox 93 94 O2 Delivery Room Air Room Air Room Air FiO2 21 Intake and Output 12/30/16 12/30/16 12/31/16 15:00 23:00 07:00 Output Total 300 ml Balance -300 ml General: Alert, Oriented X3, Cooperative, No acute distress HEENT: Atraumatic Neck: Supple Lungs: Clear to auscultation Heart: Regular rate Extremities: No cyanosis Neuro: Normal gait, Normal speech Psych/Mental Status: Mental status NL, Mood NL Medication Reconciliation Scheduled Aripiprazole (Abilify), 5 MG PO DAILY, (Reported) Atorvastatin Calcium (Atorvastatin Calcium), 40 MG PO HS, (Reported) Carvedilol (Carvedilol), 6.25 MG PO BID, (Reported) Furosemide (Furosemide), 20 MG PO DAILY, (Reported) Gabapentin (Gabapentin), 400 MG PO THREE TIMES DAILY, (Reported) Insulin Glargine,Hum.rec.anlog (Lantus), 40 UNIT SQ BID, (Reported) Insulin Lispro (Humalog), 100 UNIT SQ BID, (Reported) Lisinopril (Lisinopril), 20 MG PO DAILY, (Reported) Oxybutynin Chloride (Oxybutynin Chloride), 5 MG PO BID, (Reported) Pantoprazole Sodium (Pantoprazole Sodium), 40 MG PO DAILY, (Reported) Potassium Chloride (Potassium Chloride), 40 MEQ PO DAILY, (Reported) Sertraline Hcl (Sertraline Hcl), 100 MG PO BID, (Reported) Solifenacin Succinate (Vesicare), 5 MG PO DAILY, (Reported) Sulfasalazine (Sulfazine), 500 MG PO BID, (Reported) Trazodone Hcl (Trazodone Hcl), 50 MG PO HS, (Reported) Scheduled PRN Lorazepam (Lorazepam), 1 MG PO TID PRN, (Reported) Nitroglycerin (Nitrostat), 0.4 MG SL Q 15 MINUTES X3 DOSE PRN for CHEST PAIN, ( Reported) Assessment/Plan Assessment/Plan Problems: (1) CAD (coronary artery disease) Status: Chronic ICD Code: I25.10 - Atherosclerotic heart disease of [place] coronary artery without angina pectoris SNOMED: 94725056 (2) Aortic valve replaced Status: Chronic ICD Code: Z95.2 - Presence of prosthetic heart valve SNOMED: 39171567, 682621907, 861606694, [id number] Patient History: Alzheimer's disease 32 MOTHER, , Age:92 G8 BROTHER, , Age:64 G8 SISTER, , Age:63 Asthma 19 CHILD, Age:54 Chronic obstructive pulmonary disease G8 SISTER, , Age:63 Congestive heart failure 32 MOTHER, , Age:92 33 FATHER, , Age:61 G8 BROTHER, , Age:64 G8 SISTER, , Age:63 19 CHILD, , Age:40 Diabetes mellitus G8 SISTER, , Age:63 19 CHILD, Age:51 FH: bipolar disorder 32 MOTHER, , Age:92 FH: heart disease 32 MOTHER, , Age:92 33 FATHER, , Age:61 G8 BROTHER, , Age:64 G8 SISTER, , Age:63 19 CHILD, , Age:48 19 CHILD, , Age:40 19 CHILD, Age:54 FH: ovarian cancer 19 CHILD, Age:54 FH: schizophrenia 32 MOTHER, , Age:92 FH: uterine cancer 19 CHILD, Age:54 Hypertension G8 SISTER, , Age:63 19 CHILD, Age:54 No Family History of: Cerebrovascular disorder Diabetes insipidus Parkinson's disease Plan Continue with Lovenox BID Increase dose of warfarin after consultation with pharmacist. Reassess INR tomorrow. Problem Qualifiers (1) CAD (coronary artery disease): Coronary Disease-Associated Artery/Lesion type: [place] artery [place] vs. transplanted heart: [place] heart Associated angina: without angina Qualified Codes: I25.10 - Atherosclerotic heart disease of [place] coronary artery without angina pectoris TAVO PAZ NP Dec 30, 2016 13:12
[2016-12-30 15:56] VITALS: BP 117/45
[2016-12-30] MEDS ORDERED: COUMADIN PO SCH (17:00)
[2016-12-30] MEDS ORDERED: COUMADIN ONE (18:11)
[2016-12-30 20:00] VITALS: BP 163/90
[2016-12-30] MEDS: LIPITOR PO SCH (21:13)
[2016-12-30] MEDS: DESYREL PO SCH (21:13)
[2016-12-31 00:30] VITALS: BP 108/45
[2016-12-31 04:00] VITALS: BP 120/59
[2016-12-31 05:53] LABS: BASOPHIL % 0.5 % (0.0-0.2); EOSINOPHIL # 0.2 10^3/uL (0.0-0.2); EOSINOPHIL % 3.4 % (0.0-5.0); HEMOGLOBIN 9.6 g/dL (12.0-15.0); LYMPHOCYTES # 1.8 10^3/uL (1.0-4.8); LYMPHOCYTES % 30.3 % (24.0-44.0); MEAN CELL HGB 26.7 pg (26-34); MEAN CELL HGB CONCENTRATION 29.3 g/dL (33-37); MEAN CORP VOLUME 91.1 fL (78-100); MEAN PLATELET VOLUME 10.2 fL (7.8-11.0); MONOCYTES # 0.6 10^3/uL (0.3-0.8); MONOCYTES % 9.5 % (5.0-12.0); NEUTROPHIL # 3.3 10^3/uL (1.8-7.7); NEUTROPHILS % 56.1 % (41.0-85.0); RED CELL DISTRIBUTION WIDTH 15.2 % (11.5-14.5); WHITE BLOOD CELL 5.8 10^3/uL (4.5-11.0)
[2016-12-31] MEDS: NITRO-BID TD SCH (06:00)
[2016-12-31 06:08] LABS: CARBON DIOXIDE 29.8 mmol/L (20.0-32)
[2016-12-31 06:09] LABS: CALCIUM 9.2 mg/dL (8.4-10.5)
[2016-12-31] MEDS: HUMULIN R SUBCUT SCH (06:46)
[2016-12-31] MEDS: LEVEMIR SQ SCH (06:47)
[2016-12-31] MEDS: NEURONTIN PO SCH (08:03)
[2016-12-31] MEDS: COREG PO SCH (08:03)
[2016-12-31] MEDS: DITROPAN PO SCH (08:03)
[2016-12-31] MEDS: LASIX PO SCH (08:04)
[2016-12-31] MEDS: ZESTRIL PO SCH (08:04)
[2016-12-31] MEDS: PROTONIX PO SCH (08:04)
[2016-12-31] MEDS: KLOR-CON 10 PO SCH (08:05)
[2016-12-31] MEDS: AZULFIDINE PO SCH (08:05)
[2016-12-31] MEDS: LOVENOX SQ SCH (08:05)
[2016-12-31] MEDS: ZOLOFT PO SCH (08:05)
[2016-12-31 08:07] VITALS: BP 135/72
--- NOTE | 2016-12-31 08:12 | NUR ---
Dr Emmy Booth at bedside. Patient to discharge home
[2016-12-31] MEDS: ABILIFY PO SCH (08:14)
--- NOTE | 2016-12-31 10:20 | PRM.DC ---
Discharge Summary Date of Arrival on Unit: Dec 27, 2016 Additional Comments See history for this patient - aortic valve replacement about six weeks ago, needing anticoagulation. Morning INR was 2.3, adequate for warfarin coverage and discharge to continue warfarin outpatient with weekly monitoring. General: Alert, Oriented X3, Cooperative, No acute distress HEENT: Atraumatic Neck: Supple Lungs: Clear to auscultation Heart: Regular rate Extremities: No cyanosis, Other (2+ edema to lower legs) Neuro: Normal gait, Normal speech, Normal tone Psych/Mental Status: Mental status NL, Mood NL Scheduled Aripiprazole (Abilify), 5 MG PO DAILY, (Reported) Atorvastatin Calcium (Atorvastatin Calcium), 40 MG PO HS, (Reported) Carvedilol (Carvedilol), 6.25 MG PO BID, (Reported) Furosemide (Furosemide), 20 MG PO DAILY, (Reported) Gabapentin (Gabapentin), 400 MG PO THREE TIMES DAILY, (Reported) Insulin Glargine,Hum.rec.anlog (Lantus), 40 UNIT SQ BID, (Reported) Insulin Lispro (Humalog), 100 UNIT SQ BID, (Reported) Lisinopril (Lisinopril), 20 MG PO DAILY, (Reported) Oxybutynin Chloride (Oxybutynin Chloride), 5 MG PO BID, (Reported) Pantoprazole Sodium (Pantoprazole Sodium), 40 MG PO DAILY, (Reported) Potassium Chloride (Potassium Chloride), 40 MEQ PO DAILY, (Reported) Sertraline Hcl (Sertraline Hcl), 100 MG PO BID, (Reported) Solifenacin Succinate (Vesicare), 5 MG PO DAILY, (Reported) Sulfasalazine (Sulfazine), 500 MG PO BID, (Reported) Trazodone Hcl (Trazodone Hcl), 50 MG PO HS, (Reported) Scheduled PRN Lorazepam (Lorazepam), 1 MG PO TID PRN, (Reported) Discontinued Medications Nitroglycerin (Nitrostat), 0.4 MG SL Q 15 MINUTES X3 DOSE PRN for CHEST PAIN, ( Reported) Discontinued Reason: Discontinue Sepsis Evaluation @ Discharge Course Blood Pressure Systolic: 135 Blood Pressure Diastolic: 72 Blood Pressure Mean: 93 Plan Problems: (1) CAD (coronary artery disease) Status: Chronic ICD Code: I25.10 - Atherosclerotic heart disease of [place] coronary artery without angina pectoris SNOMED: 00292079 (2) Aortic valve replaced Status: Chronic ICD Code: Z95.2 - Presence of prosthetic heart valve SNOMED: 21234293, 625884019, 612287537, [id number] Discharge Date: Dec 31, 2016 Dicharge DX: CAD; anticoagulation therapeutic Discharge Disposition: Stable Plan Patient is to be discharged home. Resume home medications Add warfarin as prescribed. Home health prescribed. Lab for INR in one week and to follow up in one week then weekly for a month. May resume usual activity with cautions about warfarin effects. Problem Qualifiers (1) CAD (coronary artery disease): Coronary Disease-Associated Artery/Lesion type: [place] artery [place] vs. transplanted heart: [place] heart Associated angina: without angina Qualified Codes: I25.10 - Atherosclerotic heart disease of [place] coronary artery without angina pectoris TAVO PAZ NP Dec 31, 2016 10:20
[2016-12-31 10:54] VITALS: BP 135/72
--- NOTE | 2016-12-31 15:00 | NUR ---
[facility] CM/SS FAXED PATIENTS UPDATED CLINICAL INFORMATION WITH DISCHARGE INSTRUCTIONS TO [facility]. CM/SS NOTIFIED [facility] AND SPOKE TO CORTNEY COFFEY REGARDING FAX AND PATIENTS DISCHARGE FOR TODAY. CORTNEY STATED [facility] WILL FOLLOW UP WITH PATIENT TOMORROW 01/01/17. NO FURTHER CM OR DISCHARGE NEEDS KNOWN @ THIS TIME.
[2016-12-31] MEDS ORDERED: COUMADIN PO SCH ×2 (17:00)
== END 2016-12-31 11:20 | disposition home health service (06) | DRG 303 ==
LOC: MS 10:48
PROVIDERS: ADMIT Internal Medicine; ATTEND Internal Medicine
DX: I25.10 Atherosclerotic heart disease of native coronary artery without angina pectoris (principal); E11.22 Type 2 diabetes mellitus with diabetic chronic kidney disease; I48.91 Unspecified atrial fibrillation; I13.0 Hypertensive heart and chronic kidney disease with heart failure and stage 1 through stage 4 chronic kidney disease, or unspecified chronic kidney disease; Z68.41 Body mass index [BMI] 40.0-44.9, adult; I50.32 Chronic diastolic (congestive) heart failure; J44.9 Chronic obstructive pulmonary disease, unspecified; E66.01 Morbid (severe) obesity due to excess calories; M54.5 Low back pain; G89.29 Other chronic pain; N18.9 Chronic kidney disease, unspecified; K21.9 Gastro-esophageal reflux disease without esophagitis; Z95.2 Presence of prosthetic heart valve; Z88.0 Allergy status to penicillin; Z88.5 Allergy status to narcotic agent; Z82.5 Family history of asthma and other chronic lower respiratory diseases; Z83.3 Family history of diabetes mellitus; Z82.49 Family history of ischemic heart disease and other diseases of the circulatory system; Z82.0 Family history of epilepsy and other diseases of the nervous system; Z81.8 Family history of other mental and behavioral disorders; Z80.41 Family history of malignant neoplasm of ovary; Z80.49 Family history of malignant neoplasm of other genital organs
CPT/HCPCS: 36415; 71020; 80048; 80053; 82550; 82553; 82948; 83880; 84484; 85025; 85610; 93005; 93307; J1650; J1815; J2405; J3480; J3490; J7030

== ENCOUNTER 2017-03-04 13:50 | Inpatient (IN) | payer OTHER, MEDICAID ==
[~2017-03-04] VITALS: Ht 160 cm; Wt 115.5 kg
[2017-03-04 14:44] LABS: BASOPHIL % 0.4 % (0.0-0.2); EOSINOPHIL % 0.2 % (0.0-5.0); HEMOGLOBIN 9.7 g/dL (12.0-15.0); LYMPHOCYTES # 1.9 10^3/uL (1.0-4.8); LYMPHOCYTES % 34.3 % (24.0-44.0); MEAN CELL HGB 25.5 pg (26-34); MEAN CELL HGB CONCENTRATION 29.6 g/dL (33-37); MEAN CORP VOLUME 86.1 fL (78-100); MEAN PLATELET VOLUME 9.5 fL (7.8-11.0); MONOCYTES # 0.4 10^3/uL (0.3-0.8); MONOCYTES % 7.6 % (5.0-12.0); NEUTROPHIL # 3.3 10^3/uL (1.8-7.7); NEUTROPHILS % 57.3 % (41.0-85.0); RED CELL DISTRIBUTION WIDTH 17.4 % (11.5-14.5); WHITE BLOOD CELL 5.7 10^3/uL (4.5-11.0)
--- NOTE | 2017-03-04 14:57 | PCM.EKG ---
[facility] Test Date: 2017-03-04 Test Time: 14:55:32 Pat Name: JATIN CHAPA Department: Room: 313 Gender: F Welder Fitter Arc: MIRIAM : 1940 Requested By: DAVID ARTEAGA Order Number: [id number] Reading MD: David ARTEAGA Measurements Intervals [place] Rate: 61 P: DC: QRS: -34 QRSD: 90 T: 64 QT: 358 QTc: 360 Interpretive Statements Junctional rhythm Left axis deviation Low voltage QRS Abnormal ECG Compared to ECG 12/28/2016 03:39:53 Junctional rhythm now present Sinus rhythm no longer present Electronically Signed On 03-05-2017 1:55:24 [employer] by David ARTEAGA Please click the below link to view image of tracing.
[2017-03-04 15:14] LABS: ALANINE AMINOTRANSFERASE 20 U/L (12-78); ALKALINE PHOSPHATASE 133 U/L (50-136); ASPARTATE AMINO TRANSFERASE 24 U/L (0-35); CARBON DIOXIDE 30.8 mmol/L (20.0-32); GLUCOSE 214 mg/dL (70-110)
--- NOTE | 2017-03-04 15:21 | ER.PDOC ---
General Chief Complaint: Dyspnea/Respdistress Stated Complaint: CHF EXACERBATION TRAVEL OUT OF US: No Time seen by MD: 15:19 Source: patient Exam Limitations: no limitations History of Present Illness Initial Comments Patient came to be admitted for CHF exacerbation for the past few days. Has lower extremity edema. Associated Symptoms: shortness of breath Allergies: Coded Allergies: Penicillins (Verified Allergy, Unknown, 05/02/14) codeine (Verified Allergy, Unknown, 05/02/14) morphine (Verified Allergy, Unknown, 05/02/14) Home Meds Reported Medications Insulin Glargine,Hum.rec.anlog (LANTUS) 100 Unit/1 Ml Vial, 40 UNIT SQ BID, VIAL 05/02/14 Insulin Lispro (HUMALOG) 100 Unit/1 Ml Vial, 100 UNIT SQ BID, VIAL SLIDING SCALE 05/02/14 Solifenacin Succinate (VESICARE) 5 Mg Tablet, 5 MG PO DAILY, TABLET 05/02/14 Potassium Chloride (Potassium Chloride) 20 Meq Tablet.er, 40 MEQ PO DAILY 05/02/14 Lisinopril (LISINOPRIL) 20 Mg Tablet, 20 MG PO DAILY 05/30/13 Aripiprazole (ABILIFY) 5 Mg Tablet, 5 MG PO DAILY 05/30/13 Atorvastatin Calcium (ATORVASTATIN CALCIUM) 40 Mg Tablet, 40 MG PO HS 05/30/13 Oxybutynin Chloride (OXYBUTYNIN CHLORIDE) 5 Mg Tablet, 5 MG PO BID 05/30/13 Lorazepam (LORAZEPAM) 1 Mg Tablet, 1 MG PO TID Y 05/30/13 Trazodone Hcl (TRAZODONE HCL) 50 Mg Tablet, 50 MG PO HS 05/30/13 Sertraline Hcl (SERTRALINE HCL) 100 Mg Tablet, 100 MG PO BID 05/30/13 Carvedilol (CARVEDILOL) 6.25 Mg Tablet, 6.25 MG PO BID 05/30/13 Pantoprazole Sodium (PANTOPRAZOLE SODIUM) 40 Mg Tablet.dr, 40 MG PO DAILY 05/30/13 Furosemide (FUROSEMIDE) 20 Mg Tablet, 20 MG PO DAILY 05/30/13 Gabapentin (GABAPENTIN) 400 Mg Capsule, 400 MG PO THREE TIMES DAILY 05/30/13 Sulfasalazine (SULFAZINE) 500 Mg Tablet, 500 MG PO BID 05/30/13 Past Medical History Medical History: no pertinent history Surgical History: no surgical history LMP (females 10-50): hysterectomy Social History Smoking: non-smoker Alcohol Use: none Drug Use: none Review of Systems Constitutional: no symptoms reported Respiratory: see HPI Cardiovascular: see HPI Gastrointestinal: no symptoms reported Genitourinary: no symptoms reported Musculoskeletal: no symptoms reported All Other Systems: Reviewed and Negative Physical Exam General Appearance: No Apparent Distress, WD/WN, Obese EENT: eyes nml inspection Neck: Non-Tender Respiratory: chest non-tender, lungs clear, normal breath sounds, crackles CVS: reg rate & rhythm, no gallop, pulses nml, nml capillary refill, murmur Gastrointestinal: Normal Bowel Sounds, No Organomegaly, No Pulsatile Mass, Non Tender Back: Normal Inspection Extremities: Pedal Edema Neurologic/Psychiatric: bait maker II-XII NML as Tested Results/Orders Results/Orders Laboratory Tests Test 03/04/17 14:41 White Blood Count 5.7 10^3/uL (4.5-11.0) Red Blood Count 3.81 10^6/uL (4.00-5.20) Hemoglobin 9.7 g/dL (12.0-15.0) Hematocrit 32.8 % (36.0-46.0) Mean Corpuscular Volume 86.1 fL (78-100) Mean Corpuscular Hemoglobin 25.5 pg (26-34) Mean Corpuscular Hemoglobin Concent 29.6 g/dL (33-37) Red Cell Distribution Width 17.4 % (11.5-14.5) Platelet Count 207 10^3/uL (150-400) Mean Platelet Volume 9.5 fL (7.8-11.0) Neutrophils (%) (Auto) 57.3 % (41.0-85.0) Lymphocytes (%) (Auto) 34.3 % (24.0-44.0) Monocytes (%) (Auto) 7.6 % (5.0-12.0) Neutrophils # (Auto) 3.3 10^3/uL (1.8-7.7) Lymphocytes # (Auto) 1.9 10^3/uL (1.0-4.8) Monocytes # (Auto) 0.4 10^3/uL (0.3-0.8) Absolute Immature Granulocyte (auto 0.01 10^3 u/L (0-2) Eosinophils % 0.2 % (0.0-5.0) Basophils % 0.4 % (0.0-0.2) Basophils # 0.0 10^3/uL (0.0-0.1) Eosinophil Count 0.0 10^3/uL (0.0-0.2) Prothrombin Time 24.6 SEC (9.8-11.9) Prothrombin Time INR (Non-Therap) 2.3 Activated Partial Thromboplast Time 32.4 SEC (24.67-30.72) Sodium Level 140 mmol/L (132-145) Potassium Level 3.6 mmol/L (3.6-5.2) Chloride Level 104.0 mmol/L (96-109) Carbon Dioxide Level 30.8 mmol/L (20.0-32) Anion Gap 8.8 Blood Urea Nitrogen 14 mg/dL (7-18) Creatinine 1.32 mg/dL (0.59-1.40) Estimated GFR () 47.2 (>/=60) BUN/Creatinine Ratio 10.0 Glucose Level 214 mg/dL (70-110) Calcium Level 9.0 mg/dL (8.4-10.5) Total Bilirubin 0.3 mg/dL (0.2-1.0) Aspartate Amino Transf (AST/SGOT) 24 U/L (0-35) Alanine Aminotransferase (ALT/SGPT) 20 U/L (12-78) Alkaline Phosphatase 133 U/L (50-136) Total Creatine Kinase 50 U/L (26-192) Creatine Kinase MB < 0.5 ng/mL (0.5-3.6) Troponin I < 0.02 ng/mL (0.00-0.05) Pro-B-Type Natriuretic Peptide 620 pg/mL (0-450) Total Protein 7.1 g/dL (6.4-8.2) Albumin 2.9 g/dL (3.4-5.0) Globulin 4.2 Percent Immature Gran (Cell Imm) 0.20 % (0.00-0.50) EKG/XRAY/CT/US EKG Comments: Junctional rythm XRAY: chest (Mild fluid overload) Course Blood Pressure Systolic: 155 Blood Pressure Diastolic: 108 Blood Pressure Mean: 124 Departure Time of Disposition: 16:05 Disposition: 09 ADMITTED INPATIENT Impression: Primary Impression: CHF exacerbation Qualified Codes: I50.9 - Heart failure, unspecified Condition: Stable Referrals: CLIFF BOOTH MD (PCP) PRIMARY CARE PROVIDER Comments Admitted to Dr. Booth Duration or Time Spent with Pa: 40 mins LATOYA ARTEAGA MD Mar 04, 2017 15:21
--- NOTE | 2017-03-04 15:27 | DIREP ---
PROCEDURE:CHEST 1 VIEW COMPARISON:[facility], CR, XRAY CHEST 2 VWS, 12/27/2016, 12:43 PM. INDICATIONS:Fluid overload FINDINGS: LUNGS/PLEURA:Lordotic projection and low lung volumes. Increased size of left pleural effusion with left basilar atelectasis. CARDIAC:Cardiomegaly. Median sternotomy. Pulmonary arterial monitor. Mild pulmonary vascular congestion. Azygous venous distention. Calcified tortuous aorta. MEDIASTINUM:Normal. BONES:Normal. OTHER:No additional findings. CONCLUSION:Cardiomegaly and mild CHF or volume overload. Dictated by: Lorena Alvarado MD on 03/04/2017 at 03:21 PM
--- NOTE | 2017-03-04 15:39 | NUR ---
Dr. Emmy Gabriel Mba on phone with Dr. Booth
--- NOTE | 2017-03-04 15:55 | NUR ---
ADMIT RECEIVED PT FROM ER VIA WC IN STABLE CONDITION.
--- NOTE | 2017-03-04 16:07 | PRM.ACF1 ---
Date and Time Date and Time Time: 16:06 Admission Criteria Forms HEART FAILURE Clinical Indications for Admission to Inpatient Care (Place 'X' for any and all applicable criteria): Admission to inpatient status for two midnights or more is indicated by ANY ONE of the following(1)(2)(3)(4) [ ]I. Hemodynamic instability [ ]II. Severe electrolyte abnormalities requiring inpatient care(9) [ ]III. Cardiac arrhythmias of immediate concern Anasarca [ ]IV. Precipitating cause for acute decompensation (eg, pneumonia, pulmonary embolism)[ ]V. [ ]V. Acute cardiac ischemia causing or associated with failure (Also use Angina or Myocardial Infarction as appropriate) [ ]. Pulmonary edema that is very severe (eg, mechanical ventilation needed, imminent or likely, need for 100% oxygen to keep oxygen saturation above 90%) [ ]VII. Massive skin edema (anasarca) with complications (eg tissue breakdown with infection, inability to void due to edema) [A] [ ]VIII. Inpatient admission required rather than observation care (See Heart Failure: Observation Care as appropriate) because of 1 or more of the following: [x ]a) Pulmonary edema that is severe or worsening as indicated by ALL of the following : [ ]1) New need for oxygen therapy to keep oxygen saturation above 90% (or increased FiO2 need from baseline) [ ]2) Has not improved sufficiently with emergency department or observation care IV diuretics or other heart failure treatments[C] [ ]b) Altered mental status that is severe or persistent [ ]c) Increased creatinine (new on laboratory test) with reduction of more than 50% in estimated glomerular filtration rate from baseline. [ ]d) Progressively (ongoing) rising creatinine (known from past laboratory test) with reduction of more than 25% in estimated glomerular filtration rate from baseline [ ]e) Acute renal insufficiency (progressively (ongoing) rising creatinine (known from past laboratory test) with reduction of more than 25% in estimated glomerular filtration rate from baseline [ ]f) Acute renal failure [ ]g) Acute peripheral ischemia (e.g., examination shows pulseless, cool, mottled, or cyanotic extremity) [ ]h) Oyxgen administration or respiratory treatments have been needed for over 24 hours that are performable only in acute inpatient setting [ ]i) Pulmonary artery catheter monitoring [ ]j) Other condition, treatment or monitoring requiring inpatient admission Extended stay beyond goal length of stay may be needed for(1)(3)(21)(25): [ ]a) Cardiac ischemia, confirmed or suspected as precipitant [ ]b) Cardiogenic shock [ ]c) Acute renal failure [ ]d) Stage IV chronic kidney disease (estimated glomerular filteration rate of less than 30 ML/min/1.73m2 (0.50 mL/sec/1.73m2), and not previously on chronic dialysis [ ]e) Respiratory failure (eg, need for noninvasive or invasive mechanical ventilation) (23) [ ]f) Concomitant pneumonia or significant electrolyte abnormality (eg, severe hyponatremia) [ ]g) Newly diagnosed (new onset) atrial fibrillation The original [employer] content created by [employer] has been revised. The portions of the content which have been revised are identified through the use of italic text, and [facility] has neither reviewed nor approved the modified material. All other unmodified content is copyright [facility]. Please see references footnoted in the original [facility] edition 2014 LATOYA ARTEAGA MD Mar 04, 2017 16:07
[2017-03-04] MEDS ORDERED: LASIX IV STA (16:08)
[2017-03-04] MEDS ORDERED: LASIX ONE ×2 (16:33)
[2017-03-04] MEDS ORDERED: METH-3 PO (16:43)
[2017-03-04 17:13] VITALS: BP 152/77
--- NOTE | 2017-03-04 18:25 | NUR ---
REPORT REPORT GIVEN TO NEIL COFFEY TO ASSUME CARE
--- NOTE | 2017-03-04 18:35 | NUR ---
REPORT REPORT RECEIVED FROM ERNESTINE COFFEY ASSUMED CARE OF PT
[2017-03-04] MEDS ORDERED: ATIVAN PO PRN (19:00)
[2017-03-04] MEDS ORDERED: ROBAXIN PO PRN (19:00)
[2017-03-04 20:14] VITALS: BP 136/63
[2017-03-04] MEDS ORDERED: LANTUS SQ SCH (21:00)
[2017-03-04] MEDS: ZOLOFT PO SCH (21:00)
[2017-03-04] MEDS ORDERED: HUMALOG SQ SCH (21:00)
[2017-03-04] MEDS ORDERED: NOVOLOG SQ PRN (22:30)
[2017-03-04] MEDS ORDERED: DEXTROSE 50%-WATER SYRINGE IV PRN (22:30)
[2017-03-04] MEDS ORDERED: GLUCAGEN IM PRN (22:30)
[2017-03-04] MEDS: NEURONTIN PO SCH (22:40)
[2017-03-04] MEDS: DITROPAN PO SCH (22:40)
[2017-03-04] MEDS: COREG PO SCH (22:40)
[2017-03-04] MEDS: DESYREL PO SCH (22:40)
[2017-03-04] MEDS: LIPITOR PO SCH (22:40)
[2017-03-05 00:15] VITALS: BP 148/74
[2017-03-05 04:18] VITALS: BP 116/58
--- NOTE | 2017-03-05 06:30 | NUR ---
Report Received report and assumed care of pt
[2017-03-05 07:47] VITALS: BP 133/75
[2017-03-05 08:02] LABS: CALCIUM 9.1 mg/dL (8.4-10.5)
[2017-03-05] MEDS ORDERED: HUMALOG SQ PRN (08:47)
[2017-03-05] MEDS ORDERED: ABILIFY ONE (08:56)
[2017-03-05] MEDS: ABILIFY PO SCH (09:00)
[2017-03-05] MEDS: LEVEMIR SQ SCH ×2 (09:00→21:11)
[2017-03-05] MEDS: PROTONIX PO SCH (09:00)
[2017-03-05 09:01] LABS: BASOPHIL % 0.5 % (0.0-0.2); EOSINOPHIL % 0.2 % (0.0-5.0); HEMOGLOBIN 9.3 g/dL (12.0-15.0); LYMPHOCYTES # 1.9 10^3/uL (1.0-4.8); MEAN CELL HGB 25.5 pg (26-34); MEAN CELL HGB CONCENTRATION 29.3 g/dL (33-37); MEAN CORP VOLUME 86.8 fL (78-100); MEAN PLATELET VOLUME 9.7 fL (7.8-11.0); MONOCYTES # 0.7 10^3/uL (0.3-0.8); MONOCYTES % 11.2 % (5.0-12.0); NEUTROPHIL # 3.2 10^3/uL (1.8-7.7); NEUTROPHILS % 55.9 % (41.0-85.0); RED CELL DISTRIBUTION WIDTH 17.3 % (11.5-14.5); WHITE BLOOD CELL 5.8 10^3/uL (4.5-11.0)
[2017-03-05] MEDS: NEURONTIN PO SCH ×2 (09:09→21:07)
[2017-03-05] MEDS: COREG PO SCH ×2 (09:09→21:07)
[2017-03-05] MEDS: LASIX PO SCH (09:09)
[2017-03-05] MEDS: ZOLOFT PO SCH ×2 (09:10→21:07)
[2017-03-05] MEDS: DITROPAN PO SCH ×2 (09:10→21:07)
[2017-03-05] MEDS: KLOR-CON 10 PO SCH (09:10)
[2017-03-05] MEDS: ZESTRIL PO SCH (09:10)
--- NOTE | 2017-03-05 09:30 | PCM.HP ---
History of Present Illness Reason for Visit: Edema and SOB History of Present Illness 76 yo lady, recent AVR-tissue- Diastolic CHF. presented to ED with three days of worsening SOB, LE edema and 5 lbs wt gain. failed increasing the lasix dose. admitted with mildly elevated BNP and pulmonary congestion on CXR. Past Medical History Cardiac: AFIB, CHF, HTN, Aortic Stenosis Pulmonary: Asthma, COPD GI: GERD Heme/Onc: Anemia NOS Musculoskeletal: Chronic Low Back Pain Renal/: Chronic Renal Insuff Past Surgical History: Other (-october) Past Social History Smoke: No Alcohol: rare Lives: Alone Travel Hx EBOLA RISK:Travel to/contact w: No Is pt experiencing any Ebola s: No Review of Systems Constitutional: Malaise Eyes: Pain Respiratory: Shortness of breath, SOB with excertion Cardiovascular: Chest Pain, Edema Genitourinary: Frequency Skin: Bruising Allergies: Coded Allergies: Penicillins (Verified Allergy, Unknown, 05/02/14) codeine (Verified Allergy, Unknown, 05/02/14) morphine (Verified Allergy, Unknown, 05/02/14) Scheduled Aripiprazole (Abilify), 5 MG PO DAILY, (Reported) Atorvastatin Calcium (Atorvastatin Calcium), 40 MG PO HS, (Reported) Carvedilol (Carvedilol), 6.25 MG PO BID, (Reported) Furosemide (Furosemide), 20 MG PO DAILY, (Reported) Gabapentin (Gabapentin), 400 MG PO THREE TIMES DAILY, (Reported) Insulin Glargine,Hum.rec.anlog (Lantus), 40 UNIT SQ BID, (Reported) Insulin Lispro (Humalog), 100 UNIT SQ BID, (Reported) Lisinopril (Lisinopril), 20 MG PO DAILY, (Reported) Oxybutynin Chloride (Oxybutynin Chloride), 5 MG PO BID, (Reported) Pantoprazole Sodium (Pantoprazole Sodium), 40 MG PO DAILY, (Reported) Potassium Chloride (Potassium Chloride), 40 MEQ PO DAILY, (Reported) Sertraline Hcl (Sertraline Hcl), 100 MG PO BID, (Reported) Solifenacin Succinate (Vesicare), 5 MG PO DAILY, (Reported) Sulfasalazine (Sulfazine), 500 MG PO BID, (Reported) Trazodone Hcl (Trazodone Hcl), 50 MG PO HS, (Reported) Scheduled PRN Lorazepam (Lorazepam), 1 MG PO TID PRN, (Reported) Methocarbamol (Robaxin), 500 MG PO PRN PRN for PAIN, (Reported) VTE VTE Risk Total Score: >5 VTE Risk Score VTE Risk: Score 0-1 = Low Risk (Aggressive mobilization; early ambulation; no VTE prophylaxis required) Score 2: Moderate Risk (Intermittent/Pneumatic Compression Device OR Lovenox/Heparin/Coumadin) Score 3-4: High Risk (Intermittent/Pneumatic Compression Device AND Lovenox/Heparin/Coumadin) Score > or =5: Highest Risk (Intermittent/Pneumatic Compression Device AND Lovenox/Heparin/Coumadin) Antico:Hep/LMWH/Coum/Xarelto: Yes VTE VTE Present on Admission: No Currently receiving anticoagul: Yes VTE Risk Total Score: >5 Antico:Hep/LMWH/Coum/Xarelto: Yes Exam Vital Signs Vital Signs Date Time Temp Pulse Resp B/P (MAP) Pulse Ox O2 Delivery O2 Flow Rate FiO2 03/05/17 09:10 133/75 03/05/17 09:09 64 03/05/17 07:47 97.6 18 95 Room Air General Appearance: Alert, Oriented X3, mild distress HEENT: Atraumatic, Other (elevaed jvd) Respiratory: Clear to auscultation Cardiovascular: Normal S1, No murmurs, Other (razia rhonchi) Abdominal: Normal bowel sounds, Other (lous S2) Assessment/Plan Assessment/Plan Assessment/Plan - Acute on chronic diastolic CHF -AVR, tissue -chronic anemia -DM -HTN -morbid obesity plan: CHF protocol, IV loop diuretic, check INR, monitor rhythm Problems: Patient History: Alzheimer's disease 32 MOTHER, , Age:92 G8 BROTHER, , Age:64 G8 SISTER, , Age:63 Asthma 19 CHILD, Age:54 Chronic obstructive pulmonary disease G8 SISTER, , Age:63 Congestive heart failure 32 MOTHER, , Age:92 33 FATHER, , Age:61 G8 BROTHER, , Age:64 G8 SISTER, , Age:63 19 CHILD, , Age:40 Diabetes mellitus G8 SISTER, , Age:63 19 CHILD, Age:51 FH: bipolar disorder 32 MOTHER, , Age:92 FH: heart disease 32 MOTHER, , Age:92 33 FATHER, , Age:61 G8 BROTHER, , Age:64 G8 SISTER, , Age:63 19 CHILD, , Age:48 19 CHILD, , Age:40 19 CHILD, Age:54 FH: ovarian cancer 19 CHILD, Age:54 FH: schizophrenia 32 MOTHER, , Age:92 FH: uterine cancer 19 CHILD, Age:54 Hypertension G8 SISTER, , Age:63 19 CHILD, Age:54 No Family History of: Cerebrovascular disorder Diabetes insipidus Parkinson's disease CLIFF BARRY MD Mar 05, 2017 09:30
[2017-03-05] MEDS ORDERED: LASIX IV ONE (10:00)
[2017-03-05] MEDS ORDERED: NS 100ML 100 ML IV ONE (10:17)
[2017-03-05 12:11] VITALS: BP 137/70
[2017-03-05 16:32] VITALS: BP 155/82
--- NOTE | 2017-03-05 18:35 | NUR ---
report received report from offgoing shift
[2017-03-05 18:59] VITALS: BP 138/77
[2017-03-05] MEDS: DESYREL PO SCH (21:07)
[2017-03-05] MEDS: LIPITOR PO SCH (21:07)
[2017-03-06 00:15] VITALS: BP 122/55
[2017-03-06 04:04] VITALS: BP 128/63
[2017-03-06 06:11] LABS: CALCIUM 9.4 mg/dL (8.4-10.5); CARBON DIOXIDE 29.3 mmol/L (20.0-32)
--- NOTE | 2017-03-06 06:45 | NUR ---
Report Received report and assumed care of pt
--- NOTE | 2017-03-06 07:02 | NUR ---
REPORT REPORT GIVEN TO O/C SHIFT
[2017-03-06 07:33] VITALS: BP 147/77
[2017-03-06] MEDS ORDERED: ABILIFY ONE (08:51)
[2017-03-06] MEDS: LEVEMIR SQ SCH (08:56)
[2017-03-06] MEDS: COREG PO SCH (08:57)
[2017-03-06] MEDS: ZOLOFT PO SCH (08:57)
[2017-03-06] MEDS: KLOR-CON 10 PO SCH (08:57)
[2017-03-06] MEDS: NEURONTIN PO SCH (08:58)
[2017-03-06] MEDS: LASIX PO SCH (08:58)
[2017-03-06] MEDS: DITROPAN PO SCH (08:58)
[2017-03-06] MEDS: PROTONIX PO SCH (08:58)
[2017-03-06] MEDS: ZESTRIL PO SCH (08:58)
[2017-03-06] MEDS: ABILIFY PO SCH (08:59)
--- NOTE | 2017-03-06 09:45 | NUR ---
Dhiraj Dewey at bedside. No new orders received.
--- NOTE | 2017-03-06 10:23 | PRM.DC ---
Discharge Summary Date of Discharge: Mar 06, 2017 Time of Request to Discharge: 10:18 Reason for Visit: Edema and SOB Additional Comments History of Present Illness This is a 76-year-old female with diastolic CHF who presented to ED with three days of worsening SOB, lower extremity edema and 5 pound weight gain although she was taking Lasix 40 mg AM and 20 mg PM. Admitted with mildly elevated BNP and pulmonary congestion on CXR. HISTORY: Cardiac: AFIB, CHF, HTN, Aortic Stenosis Pulmonary: Asthma, COPD GI: GERD Heme/Onc: Anemia NOS Musculoskeletal: Chronic Low Back Pain Renal/: Chronic Renal Insuff Past Surgical History: Other (-October) Patient History: Alzheimer's disease 32 MOTHER, , Age:92 G8 BROTHER, , Age:64 G8 SISTER, , Age:63 Asthma 19 CHILD, Age:54 Chronic obstructive pulmonary disease G8 SISTER, , Age:63 Congestive heart failure 32 MOTHER, , Age:92 33 FATHER, , Age:61 G8 BROTHER, , Age:64 G8 SISTER, , Age:63 19 CHILD, , Age:40 Diabetes mellitus G8 SISTER, , Age:63 19 CHILD, Age:51 FH: bipolar disorder 32 MOTHER, , Age:92 FH: heart disease 32 MOTHER, , Age:92 33 FATHER, , Age:61 G8 BROTHER, , Age:64 G8 SISTER, , Age:63 19 CHILD, , Age:48 19 CHILD, , Age:40 19 CHILD, Age:54 FH: ovarian cancer 19 CHILD, Age:54 FH: schizophrenia 32 MOTHER, , Age:92 FH: uterine cancer 19 CHILD, Age:54 Hypertension G8 SISTER, , Age:63 19 CHILD, Age:54 No Family History of: Cerebrovascular disorder Diabetes insipidus Parkinson's disease History Present Illness: General: Alert, Oriented X3, Cooperative, No acute distress HEENT: Atraumatic Neck: Supple Lungs: Clear to auscultation Heart: Regular rate Extremities: No cyanosis Neuro: Normal gait, Normal speech, Normal tone Psych/Mental Status: Mental status NL, Mood NL Scheduled Aripiprazole (Abilify), 5 MG PO DAILY, (Reported) Atorvastatin Calcium (Atorvastatin Calcium), 40 MG PO HS, (Reported) Carvedilol (Carvedilol), 6.25 MG PO BID, (Reported) Furosemide (Furosemide), 20 MG PO DAILY, (Reported) Gabapentin (Gabapentin), 400 MG PO THREE TIMES DAILY, (Reported) Insulin Glargine,Hum.rec.anlog (Lantus), 40 UNIT SQ BID, (Reported) Insulin Lispro (Humalog), 100 UNIT SQ BID, (Reported) Lisinopril (Lisinopril), 20 MG PO DAILY, (Reported) Oxybutynin Chloride (Oxybutynin Chloride), 5 MG PO BID, (Reported) Pantoprazole Sodium (Pantoprazole Sodium), 40 MG PO DAILY, (Reported) Potassium Chloride (Potassium Chloride), 40 MEQ PO DAILY, (Reported) Sertraline Hcl (Sertraline Hcl), 100 MG PO BID, (Reported) Solifenacin Succinate (Vesicare), 5 MG PO DAILY, (Reported) Sulfasalazine (Sulfazine), 500 MG PO BID, (Reported) Trazodone Hcl (Trazodone Hcl), 50 MG PO HS, (Reported) Scheduled PRN Lorazepam (Lorazepam), 1 MG PO TID PRN, (Reported) Methocarbamol (Robaxin), 500 MG PO PRN PRN for PAIN, (Reported) Sepsis Evaluation @ Discharge Course Blood Pressure Systolic: 147 Blood Pressure Diastolic: 77 Blood Pressure Mean: 100 Plan Problems: (1) CHF exacerbation Status: Acute ICD Code: I50.9 - Heart failure, unspecified SNOMED: 13914559 (2) CAD (coronary artery disease) Status: Chronic ICD Code: I25.10 - Atherosclerotic heart disease of [place] coronary artery without angina pectoris SNOMED: 46747084 Discharge Date: Mar 06, 2017 Discharge Disposition: Stable Plan Discharge to home Change Lasix dose to 40 mg PO BID until follow up Follow up Mar 17 at 2:30 with Zuleima Pryor NP. Call if weight gain of more than 3 pounds. Problem Qualifiers (1) CHF exacerbation: Congestive heart failure type: diastolic Qualified Codes: I50.33 - Acute on chronic diastolic (congestive) heart failure (2) CAD (coronary artery disease): Coronary Disease-Associated Artery/Lesion type: [place] artery [place] vs. transplanted heart: [place] heart Associated angina: without angina Qualified Codes: I25.10 - Atherosclerotic heart disease of [place] coronary artery without angina pectoris TAVO PRYOR APRN, NP Mar 06, 2017 10:23
--- NOTE | 2017-03-06 10:50 | NUR ---
Discharge Discharge instructions given to pt. Educated pt on importance of taking lasix as prescribed. Pt able to verbalzie understanding. Educated pt on importance of follow up appt with Zuleima Pryor. Pt able to verbalize understanding. Answered all pt questions. Pt denies further questions or concerns. Removed IV. No bleeding, redness, heat, edema, or pain noted at site. Covered site with cotton ball and band aid. Pt waiting in room for ride. Call light within reach.
== END 2017-03-06 12:35 | disposition home or self-care (01) | DRG 291 ==
LOC: ER 13:50 → MS 15:42
PROVIDERS: ADMIT Internal Medicine; ATTEND Internal Medicine
DX: I13.0 Hypertensive heart and chronic kidney disease with heart failure and stage 1 through stage 4 chronic kidney disease, or unspecified chronic kidney disease (principal); I50.33 Acute on chronic diastolic (congestive) heart failure; E11.22 Type 2 diabetes mellitus with diabetic chronic kidney disease; I48.91 Unspecified atrial fibrillation; Z68.42 Body mass index [BMI] 45.0-49.9, adult; D64.9 Anemia, unspecified; E66.01 Morbid (severe) obesity due to excess calories; J44.9 Chronic obstructive pulmonary disease, unspecified; K21.9 Gastro-esophageal reflux disease without esophagitis; M54.5 Low back pain; G89.29 Other chronic pain; I25.10 Atherosclerotic heart disease of native coronary artery without angina pectoris; N18.9 Chronic kidney disease, unspecified; Z88.0 Allergy status to penicillin; Z88.8 Allergy status to other drugs, medicaments and biological substances; Z81.8 Family history of other mental and behavioral disorders; Z82.5 Family history of asthma and other chronic lower respiratory diseases; Z83.6 Family history of other diseases of the respiratory system; Z82.49 Family history of ischemic heart disease and other diseases of the circulatory system; Z83.3 Family history of diabetes mellitus; Z80.41 Family history of malignant neoplasm of ovary; Z80.59 Family history of malignant neoplasm of other urinary tract organ; Z90.710 Acquired absence of both cervix and uterus; Z95.2 Presence of prosthetic heart valve; Z79.4 Long term (current) use of insulin
CPT/HCPCS: 36415; 71010; 80048; 80053; 80061; 82550; 82553; 82948; 83880; 84484; 85025; 85610; 85730; 93005; 96374; 99285; J1815; J1940; J3480; J7050

== ENCOUNTER → 2017-04-25 | Outpatient (CLI) | payer OTHER, MEDICAID ==
[~2017-04-25] MED LIST changes: +METH-3 PO
== END | disposition home or self-care (01) ==
LOC: BD 14:39
DX: M81.0 Age-related osteoporosis without current pathological fracture (principal)
CPT/HCPCS: 77080

== ENCOUNTER → 2017-08-16 | Outpatient (CLI) | payer OTHER, MEDICAID ==
[~2017-08-16] MED LIST changes: +POTA40LI PO; -POTA40LI3 PO
--- NOTE | 2017-08-25 10:39 | ECHO ---
DATE OF SERVICE: 08/16/2017 FINDINGS: The left ventricle is of normal size. There is mild concentric left ventricular hypertrophy. The systolic function is hyperdynamic. The ejection fraction is 71%. The aortic valve is sclerotic without stenosis. Mitral valve shows thickening and calcification at the edges. There is no mitral regurgitation. There is no tricuspid regurgitation. Pulmonic valve is not well seen. There is no pulmonic insufficiency. SUMMARY: 1. Concentric left ventricular hypertrophy. 2. Hyperdynamic systolic function with ejection fraction 71%. 3. Aortic sclerosis without stenosis. 4. Mitral valve leaflet thickening. 5. No wall motion abnormalities. PIERO DUONG MD DR: REI/henrik JOB# [id number]
== END | disposition home or self-care (01) ==
LOC: RT 15:04
DX: I35.8 Other nonrheumatic aortic valve disorders (principal); I51.7 Cardiomegaly
CPT/HCPCS: 93307

== ENCOUNTER 2019-05-18 11:24 | Emergency (ER) | payer MEDICARE, OTHER ==
[~2019-05-18] VITALS: Ht 160 cm; Wt 91.6 kg
[~2019-05-18 11:24] MED LIST changes: +MONT10TA11 PO; -MONT10TA9 PO; +OXYB5TAB10 PO; -OXYB5TAB7 PO; +TRAZ-163 PO; -TRAZ50TA18 PO
[2019-05-18 11:49] VITALS: BP 115/70
--- NOTE | 2019-05-18 12:15 | NUR ---
CODE STROKE CALLED.
--- NOTE | 2019-05-18 12:18 | NUR ---
CT Pt to CT via w/c.
--- NOTE | 2019-05-18 12:20 | ER.PDOC ---
General Chief Complaint: Extremities Stated Complaint: DIFFICULTY SWALLOWING Time seen by MD: 12:01 Source: patient History of Present Illness Initial Comments yesterday afternoon patient noticed slurring of speech and rue and rle weakness, no sensation change per patient, patient has mild diffuse headache, no fever or neck stiffness, no chest pain or palpitations, pt is on eliquis for heart valve replacement. Timing/Duration: 24 hours Severity: mild New Weakness: RUE, RLE Impairments: Impaired Speech Decreased Ability to Stand: weak Usually: orientedx3 Associated Symptoms: headache Allergies: Coded Allergies: Penicillins (Verified Allergy, Unknown, unknown, 04/25/17) codeine (Verified Allergy, Unknown, 05/02/14) morphine (Verified Allergy, Unknown, 05/02/14) Home Meds Reported Medications Methocarbamol (ROBAXIN) 500 Mg Tablet, 500 MG PO PRN PRN for PAIN, TABLET 03/04/17 Insulin Glargine,Hum.rec.anlog (LANTUS) 100 Unit/1 Ml Vial, 40 UNIT SQ BID, VIAL 05/02/14 Insulin Lispro (HUMALOG) 100 Unit/1 Ml Vial, 100 UNIT SQ BID, VIAL SLIDING SCALE 05/02/14 Solifenacin Succinate (VESICARE) 5 Mg Tablet, 5 MG PO DAILY, TABLET 05/02/14 Potassium Chloride (Potassium Chloride) 20 Meq Tablet.er, 40 MEQ PO DAILY 05/02/14 Lisinopril (LISINOPRIL) 20 Mg Tablet, 20 MG PO DAILY 05/30/13 Aripiprazole (ABILIFY) 5 Mg Tablet, 5 MG PO DAILY 05/30/13 Atorvastatin Calcium (ATORVASTATIN CALCIUM) 40 Mg Tablet, 40 MG PO HS 05/30/13 Oxybutynin Chloride (OXYBUTYNIN CHLORIDE) 5 Mg Tablet, 5 MG PO BID 05/30/13 Lorazepam (LORAZEPAM) 1 Mg Tablet, 1 MG PO TID PRN 05/30/13 Trazodone Hcl (TRAZODONE HCL) 50 Mg Tablet, 50 MG PO HS 05/30/13 Sertraline Hcl (SERTRALINE HCL) 100 Mg Tablet, 100 MG PO BID 05/30/13 Carvedilol (CARVEDILOL) 6.25 Mg Tablet, 6.25 MG PO BID 05/30/13 Pantoprazole Sodium (PANTOPRAZOLE SODIUM) 40 Mg Tablet.dr, 40 MG PO DAILY 05/30/13 Furosemide (FUROSEMIDE) 20 Mg Tablet, 20 MG PO DAILY 05/30/13 Gabapentin (GABAPENTIN) 400 Mg Capsule, 400 MG PO THREE TIMES DAILY 05/30/13 Sulfasalazine (SULFAZINE) 500 Mg Tablet, 500 MG PO BID 05/30/13 Past Medical History Medical History: other Surgical History: no surgical history Social History Drug Use: none Review of Systems Constitutional: denies chills, denies fever Ears, Nose, Mouth, Throat: denies nose pain Respiratory: denies cough, denies shortness of breath Cardiovascular: denies chest pain, denies palpitations, denies syncope Gastrointestinal: denies abdominal pain Genitourinary: denies pain Musculoskeletal: denies back pain, denies neck pain Skin: denies rash Psychiatric/Neurological: headache Physical Exam General Appearance: alert, no distress HEENT: no apparent trauma Neuro/Psych: oriented x3, nml mood/affect Cerebellar: nml as tested Peripheral Exam: weakness Neck: supple Respiratory: no resp distress, breath sounds nml CVS: reg rate & rhythm Abdomen: non-tender Skin: color nml Extremities: non-tender, nml ROM, no pedal edema Comments patient has rue and rle weakness but can lift against gravity, small amount of r facial droop noted Results/Orders Results/Orders Orders - EDILSON LEON MD Cbc With Auto Diff (05/18/19 12:13) Comprehensive Metabolic Panel (05/18/19 12:13) Creatine Kinase (05/18/19 12:13) PT (05/18/19 12:13) Xr Chest 1v (05/18/19 12:13) Partial Thromboplastin Time. (05/18/19 12:13) Troponin I (05/18/19 12:13) Urinalysis (05/18/19 12:13) Ekg-Routine (05/18/19 12:13) Ct Head Wo Contrast (05/18/19 12:13) Saline Lock (05/18/19 12:13) Vital Signs Date Time Temp Pulse Resp B/P (MAP) Pulse Ox O2 Delivery O2 Flow Rate FiO2 05/18/19 12:52 64 19 135/71 (92) 98 05/18/19 12:52 64 19 135/71 (92) 98 05/18/19 11:49 97.5 81 18 97 Laboratory Tests Test 05/18/19 12:27 White Blood Count 8.0 10^3/uL (4.5-11.0) Red Blood Count 4.00 10^6/uL (4.00-5.20) Hemoglobin 11.4 g/dL (12.0-15.0) L Hematocrit 35.4 % (36.0-46.0) L Mean Corpuscular Volume 88.5 fL (78-100) Mean Corpuscular Hemoglobin 28.5 pg (26-34) Mean Corpuscular Hemoglobin Concent 32.2 g/dL (33-36.5) L Red Cell Distribution Width 14.4 % (11.5-14.5) Platelet Count 259 10^3/uL (150-400) Mean Platelet Volume 10.0 fL (7.8-11.0) Neutrophils (%) (Auto) 73.0 % (41.0-85.0) Lymphocytes (%) (Auto) 17.4 % (24.0-44.0) L Monocytes (%) (Auto) 6.5 % (5.0-12.0) Neutrophils # (Auto) 5.9 10^3/uL (1.8-7.7) Lymphocytes # (Auto) 1.39 10^3/uL1 (1.0-4.8) Monocytes # (Auto) 0.5 10^3/uL (0.3-0.8) Absolute Immature Granulocyte (auto 0.02 10^3 u/L (0-2) Absolute Eosinophils (auto) 0.2 10^3/uL (0.0-0.2) Immature Granulocytes % 0.30 % (0.00-0.50) Eosinophils % 2.5 % (0.0-5.0) Basophils % 0.3 % (0.0-0.2) H Basophils # 0.0 10^3/uL (0.0-0.1) Prothrombin Time 11.8 SEC (9.4-11.5) H Prothrombin Time INR (Non-Therap) 1.1 Activated Partial Thromboplast Time 29.3 SEC (24.67-30.72) Sodium Level 138 mmol/L (132-145) Potassium Level 3.8 mmol/L (3.6-5.2) Chloride Level 98.0 mmol/L (96-109) Carbon Dioxide Level 31.2 mmol/L (20.0-32) Anion Gap 12.6 Blood Urea Nitrogen 32 mg/dL (7-18) H Creatinine 1.93 mg/dL (0.59-1.40) H Estimated GFR () 30.3 (>/=60) Est GFR (CKD-EPI)(Non-Afr Rw[place]an) 25.0 (>/=60) BUN/Creatinine Ratio 16.0 Glucose Level 219 mg/dL (70-110) H Calcium Level 9.6 mg/dL (8.4-10.5) Total Bilirubin 0.7 mg/dL (0.2-1.0) Aspartate Amino Transferase (AST) 29 U/L (0-35) Alanine Aminotransferase (ALT) 37 U/L (12-78) Alkaline Phosphatase 266 U/L (50-136) H Total Creatine Kinase 18 U/L (26-192) L Troponin I 0.02 ng/mL (0.00-0.05) Total Protein 8.2 g/dL (6.4-8.2) Albumin 3.1 g/dL (3.4-5.0) L Globulin 5.1 Progress Progress not tpa candidate secondary to timeline of symptoms starting yesterday.. discussed with [facility] one call for transfer as no neuro here, [place] is aod and dr arango auto accepting doctor 113 pm Departure Time of Disposition: 13:14 Disposition: 02 XFER SHT-TRM HOSP Impression: Primary Impression: Stroke Condition: Stable Referrals: ANGEL BRANHAM (PCP) PRIMARY CARE PROVIDER Duration or Time Spent with Pa: 20 EDILSON LEON MD May 18, 2019 12:20
--- NOTE | 2019-05-18 12:28 | NUR ---
CAT SCAN PATIENT BACK FROM CAT SCAN.
--- NOTE | 2019-05-18 12:31 | DIREP ---
PROCEDURE:CT HEAD OR BRAIN W/O CONTRAST COMPARISON:[facility], CT, CT HEAD BRAIN W/O CONTRAST, 07/29/2014, 02:28 PM. INDICATIONS:r sided weakness TECHNIQUE:CT images were created without intravenous contrast. FINDINGS: VENTRICLES:The ventricles are normal in size and configuration. CEREBRUM:Small remote lacunar infarct is again seen in the right centrum semiovale region. CEREBELLUM:Negative. BRAINSTEM:Negative. BASAL CISTERNS:Negative. HEMORRHAGE:No MASS LESION:No ACUTE INFARCT:No SKULL:Normal. SINUSES:Normal. OTHER:None CONCLUSION:There are findings of a small remote lacunar infarct in the right centrum semiovale region. No mass, hemorrhage or acute infarct is seen. Dictated by: Bg Adan M.D. on 05/18/2019 at 12:28 PM
[2019-05-18 12:32] LABS: BASOPHIL % 0.3 % (0.0-0.2); EOSINOPHIL # 0.2 10^3/uL (0.0-0.2); EOSINOPHIL % 2.5 % (0.0-5.0); LYMPHOCYTES # 1.39 10^3/uL1 (1.0-4.8); LYMPHOCYTES % 17.4 % (24.0-44.0); MEAN CORP HGB 28.5 pg (26-34); MONOCYTES # 0.5 10^3/uL (0.3-0.8); MONOCYTES % 6.5 % (5.0-12.0); NEUTROPHIL # 5.9 10^3/uL (1.8-7.7); RED CELL DISTRIBUTION WIDTH 14.4 % (11.5-14.5)
--- NOTE | 2019-05-18 12:33 | PCM.EKG ---
[facility] Test Date: 2019-05-18 Test Time: 12:26:27 Pat Name: JATIN CHAPA Department: Room: Gender: F Sourcing Assistant: TB : 1940 Requested By: VAUGHN JUNE Order Number: [id number] Reading MD: Vaughn June Measurements Intervals [place] Rate: 85 P: 2 GA: 176 QRS: -54 QRSD: 90 T: 59 QT: 378 QTc: 450 Interpretive Statements Sinus rhythm Ventricular premature complex Inferior infarct, old Consider anterior infarct Compared to ECG 03/04/2017 14:55:32 Ventricular premature complex(es) now present Myocardial infarct finding now present Junctional rhythm no longer present Left-axis deviation no longer present Electronically Signed On 05-18-2019 12:58:31 COMPUTER CLERK by Vaughn June Please click the below link to view image of tracing.
--- NOTE | 2019-05-18 12:40 | DIREP ---
PROCEDURE:CHEST 1 VIEW COMPARISON:[facility], CR, XRAY CHEST 2 VWS, 12/12/2018, 03:51 PM. INDICATIONS:r sided weakness FINDINGS: LUNGS/PLEURA:No significant pulmonary parenchymal abnormalities. No effusions. VASCULATURE:Normal. Unremarkable pulmonary vasculature. CARDIAC:Previous sternotomy. Left atrial appendage clip in place. Epicardial lead in place. MEDIASTINUM:Calcification in the aortic arch. BONES:Normal. No fracture or visible bony lesion. OTHER:Negative. CONCLUSION:No acute cardiopulmonary abnormalities. No change from prior study. Dictated by: Galindo Vallecillo M.D. on 05/18/2019 at 12:29 PM
[2019-05-18 12:52] VITALS: BP 135/71
[2019-05-18 12:59] LABS: CALCIUM 9.6 mg/dL (8.4-10.5); CARBON DIOXIDE 31.2 mmol/L (20.0-32)
--- NOTE | 2019-05-18 13:11 | NUR ---
[facility] DOCTOR CAROLYN ON THE PHONE WITH [facility] DISCUSSING TRANSFER
--- NOTE | 2019-05-18 13:13 | NUR ---
[facility] DOCTOR YESSY ACCEPTED PATIENT AND BRADLEY NICHOLSON IS THE AOD
[2019-05-18 13:27] VITALS: BP 127/70
--- NOTE | 2019-05-18 13:28 | NUR ---
DISPATCH DISPATCH NOTIFIED OF PATIENT TRANSFER
--- NOTE | 2019-05-18 13:29 | NUR ---
LAST KNOW WELL PATIENT STATES THAT HER SYMPTONS BEGAN YESTERDAY AFTERNOON BUT WAS UNABLE TO GIVE A SPECIFIC TIME
--- NOTE | 2019-05-18 13:48 | NUR ---
EMS Report given to Dustin. Pt ambulated to stretcher. Pt to [facility] ER, Dr Borden, with Dx CVA.
--- NOTE | 2019-05-18 13:57 | NUR ---
Report Report given to Jose Francisco COFFEY via telephone.
== END 2019-05-18 13:48 | disposition short-term general hospital (02) ==
LOC: ER 11:24
DX: I63.9 Cerebral infarction, unspecified (principal); R13.10 Dysphagia, unspecified; Z79.4 Long term (current) use of insulin; Z79.899 Other long term (current) drug therapy; Z88.0 Allergy status to penicillin; Z88.5 Allergy status to narcotic agent
CPT/HCPCS: 36415; 70450; 71045; 80053; 82550; 84484; 85025; 85610; 85730; 93005; 99285

== ENCOUNTER 2019-06-19 08:49 | Day surgery (SDC) | payer MEDICARE, MEDICAID ==
[~2019-06-19] VITALS: Ht 160 cm; Wt 96.2 kg
[2019-06-19] VITALS (9 sets, daily range): BP systolic 114–160; BP diastolic 61–83
[~2019-06-19 08:49] MED LIST changes: +ACET500T73 PO; +APIX5TAB PO; +ASCO500C PO; +ASPI-484 PO; +CELE100C PO; +CHOL3000 PO; +DIPH25TA64 PO; +DOCU-123 PO; +FLUT1AER IH; +HYDR-2370 PO; +HYDR25TA9 PO; +MAGN400T9 PO; +MICO45CR VG; +NS 1000ML 1,000 ML ONE; +OMEP40CA41 PO; +SERT25TA PO; +SPIR25TA PO; +SUBLIMAZE ONE; +VERSED ONE; +XYLOCAINE ONE; +[UNRECOGNIZED DRUG - CODE] PO
--- NOTE | 2019-06-19 09:13 | PCM.EKG ---
[facility] Test Date: 2019-06-19 Test Time: 09:05:24 Pat Name: JATIN CHAPA Department: Room: Gender: F What Job Titles Mean: MIRIAM : 1940 Requested By: BALBIR DONAHUE Order Number: [id number] Reading MD: Balbir Donahue Measurements Intervals [place] Rate: 84 P: -33 MA: 177 QRS: -55 QRSD: 89 T: 54 QT: 398 QTc: 471 Interpretive Statements Normal Sinus rhythm Atrial premature complexes in bigeminy pattern Left anterior fascicular block Abnormal R-wave progression, late transition Cannot exclude old anterior infarct Compared to ECG 05/18/2019 12:26:27 Premature ventricular complex no longer present Electronically Signed On 06-19-2019 15:25:01 CDT by Balbir Donahue Please click the below link to view image of tracing.
--- NOTE | 2019-06-19 15:49 | [facility] ---
DATE OF SERVICE: 06/19/2019 INDICATION FOR PROCEDURE: Normal nuclear stress test. HISTORY: This is a 78-year-old female who was initially seen in the outpatient setting where she underwent cardiac ischemic workup that revealed reversible perfusion defect suggestive of myocardial ischemia. In view of this, she was set up for left heart catheterization to rule out obstructive CAD. Informed consents were obtained, and the patient was taken to the cardiac catheterization suite. PROCEDURES PERFORMED: 1. Selective coronary angiography. 2. Hemostasis established using a 6-Malaysian Angio-Seal. DESCRIPTION OF PROCEDURE: Access was obtained using a 4-Malaysian micropuncture kit to cannulate the right common femoral artery. The 4-Malaysian sheath was then upsized to a 6-Malaysian regular short sheath. Diagnostic angiography was carried out using an AL1 catheter to engage the left main. The left main was noted to be angiographically normal. 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 It bifurcates into left anterior descending artery and the left circumflex artery. The left anterior descending artery is noted to have mild luminal irregularities. It runs in the interventricular groove wrapping around the apex to form a type 3 LAD. It gives off very small caliber first and second diagonal branches that are noted to have mild luminal irregularities. The third diagonal branch is a medium size caliber vessel, also with mild luminal irregularities. The LAD itself has mild luminal irregularities. The left circumflex artery is noted to be codominant with mild luminal irregularities. It gives off 3 obtuse marginal branches that are noted to have mild luminal irregularities. The obtuse marginal branches continue as the posterolateral branch supplying the posterolateral wall. The AL1 catheter was then exchanged for a Antony right catheter, which was used to engage the RCA. The RCA was noted to be codominant and with mild luminal irregularities. The RCA bifurcates distally to an RPL and RPDA branch noted to have mild luminal irregularities. Antony right catheter was then taken out and hemostasis was established using a 6-Malaysian Angio-Seal. The patient left the lab nurse in stable condition. There were no complications. IMPRESSION: 1. Nonobstructive coronary artery disease. 2. Selective coronary angiography. 3. Hemostasis established using a 6-Malaysian Angio-Seal. RECOMMENDATIONS: No coronary intervention is necessary at this time. Lifestyle modification factors have been strongly advised. She will be discharged home later today to follow up with me in the office in 2 weeks. LUIS KAM D.O. : PEE/henrik JOB# [id number]
== END 2019-06-19 14:45 | disposition home or self-care (01) ==
LOC: CCL 08:49
PROVIDERS: ATTEND Internal Medicine Interventional Cardiology
DX: R94.39 Abnormal result of other cardiovascular function study (principal); I25.10 Atherosclerotic heart disease of native coronary artery without angina pectoris; E11.9 Type 2 diabetes mellitus without complications; K21.9 Gastro-esophageal reflux disease without esophagitis; F32.9 Major depressive disorder, single episode, unspecified; I10 Essential (primary) hypertension; M06.9 Rheumatoid arthritis, unspecified; M81.0 Age-related osteoporosis without current pathological fracture; Z90.710 Acquired absence of both cervix and uterus; Z98.890 Other specified postprocedural states; Z96.653 Presence of artificial knee joint, bilateral
CPT/HCPCS: 82948 ×2; 93005; 93454; 99152; C1769; C1894 ×3; J1644; J2250; J3010; J3490; J7030; Q9967

== ENCOUNTER → 2019-06-22 | Outpatient (CLI) | payer MEDICARE, MEDICAID ==
[~2019-06-22] MED LIST changes: +CARDENE IV ONE; +NITROGLYCERIN 25MG/D5W 250ML 250 ML IV ONE; -NS 1000ML 1,000 ML ONE; -SUBLIMAZE ONE; -VERSED ONE; -XYLOCAINE ONE
--- NOTE | 2019-06-22 16:01 | DIREP ---
PROCEDURE:CTA ABDOMEN W RUNOFF BILAT COMPARISON:None. INDICATIONS:PVD I73.9 TECHNIQUE:After obtaining the patient's consent, CTA images of the abdomen, pelvis, and lower extremities were obtained without and with non-ionic intravenous contrast material. Multi-planar reformatted/3-D images were created to optimize visualization of vascular anatomy. FINDINGS: AORTO-ILIAC:Atherosclerotic calcifications, no aneurysm. Accessory right renal artery, an incidental finding. Normal celiac. Normal SMA origin. Normal SHELL. RIGHT LOWER EXTREMITY:Both knees a been replaced. SFA, popliteal, and trifurcation normal caliber. Distal disease anterior tibial. LEFT LOWER EXTREMITY:SFA, popliteal, and trifurcation normal. LIMITED CHEST:Pleural thickening with scant effusion posterior left base. LIVER:No lesions. BILIARY:Normal. PANCREAS:Normal. SPLEEN:Normal. KIDNEYS:Normal. ADRENALS:Normal. RETROPERITONEUM:Precaval lymph node 15 mm in short axis diameter (series 6/image 42). Right precrural node 1 cm in diameter (series 6/image 29). BOWEL/MESENTERY:Normal. ABDOMINAL WALL:Normal. BONES:Partial compression of L2 vertebral body PELVIS:Uterus absent OTHER:Negative. CONCLUSION:Moderate peripheral vascular disease distal lower extremities on both sides. No aneurysm. Several prominent retroperitoneal lymph nodes in the upper abdomen. Dictated by: William Cornelius MD on 06/22/2019 at 03:17 PM
== END | disposition home or self-care (01) ==
LOC: RAD 12:52
PROVIDERS: ATTEND Internal Medicine Interventional Cardiology
DX: I73.9 Peripheral vascular disease, unspecified (principal); I70.0 Atherosclerosis of aorta; J92.9 Pleural plaque without asbestos
CPT/HCPCS: 36415; 75635; 82565; C1769; C1894 ×3; J3490; Q9967; C1887

== ENCOUNTER → 2019-09-13 | Outpatient (CLI) | payer MEDICARE, MEDICAID ==
[~2019-09-13] MED LIST changes: -CARDENE IV ONE; -NITROGLYCERIN 25MG/D5W 250ML 250 ML IV ONE
--- NOTE | 2019-09-14 22:19 | PRP ---
DATE OF PROCEDURE: 09/14/2019 POST ABLATION VENOUS DOPPLER ULTRASOUND. INDICATION FOR PROCEDURE: Status post radiofrequency ablation of the right greater saphenous vein. FINDINGS: There is no evidence of deep vein thrombosis in the right lower extremity. Hyperechoic material is visualized in the right greater saphenous vein. The right greater saphenous vein is noncompressible. There is no evidence of venous flow in the right GSV. IMPRESSION: 1. Successful radiofrequency ablation of the right greater saphenous vein. 2. There is no evidence of deep vein thrombosis in the right lower extremity. LUIS KAM D.O. DR: PEE/henrik JOB# [id number]
== END | disposition home or self-care (01) ==
LOC: RAD 11:33
PROVIDERS: ATTEND Internal Medicine Interventional Cardiology
DX: I87.2 Venous insufficiency (chronic) (peripheral) (principal)
CPT/HCPCS: 93971

== ENCOUNTER → 2019-09-25 | Outpatient (CLI) | payer MEDICARE, MEDICAID | END | disposition home or self-care (01) | LOC: LAB 13:19 | PROVIDERS: ATTEND Nurse Practitioner Adult Health | DX: E11.9 Type 2 diabetes mellitus without complications (principal); R30.0 Dysuria | CPT/HCPCS: 82043; 87077; 87086; 87186 ==

== ENCOUNTER → 2019-10-18 | Outpatient (CLI) | payer MEDICARE, MEDICAID ==
[~2019-10-18] MED LIST changes: -ASPI-484 PO; +ASPI-485 PO
--- NOTE | 2019-10-22 22:32 | PRP ---
DATE OF PROCEDURE: 10/18/2019 POST VENOUS ABLATION DOPPLER ULTRASOUND INDICATION FOR PROCEDURE: Status post radiofrequency ablation of the right small saphenous vein. FINDINGS: There is no evidence of deep vein thrombosis in the right lower extremity. Hyperechoic material is visualized in the right small saphenous vein. There is no evidence of venous flow in the right small saphenous vein. The right small saphenous vein appears to be noncompressible. IMPRESSION: 1. Successful radiofrequency ablation of the right small saphenous vein. 2. There is no evidence of deep vein thrombosis in the right lower extremity. LUIS KAM D.O. DR: PEE/henrik JOB# [id number]
== END | disposition home or self-care (01) ==
LOC: RAD 09:54
PROVIDERS: ATTEND Internal Medicine Interventional Cardiology
DX: I87.2 Venous insufficiency (chronic) (peripheral) (principal)
CPT/HCPCS: 93971

== ENCOUNTER → 2019-10-25 | Outpatient (CLI) | payer MEDICARE, MEDICAID ==
[~2019-10-25] MED LIST changes: -PANT40TA5 PO; +PANT40TA6 PO
--- NOTE | 2019-10-25 23:54 | PRP ---
DATE OF PROCEDURE: 10/25/2019 POST VENOUS ABLATION DOPPLER ULTRASOUND INDICATION FOR PROCEDURE: Status post radiofrequency ablation of the left GSV. FINDINGS: There is no evidence of deep vein thrombosis in the left lower extremity. Hyperechoic material is visualized in the left greater saphenous vein. The left GSV appears to be noncompressible. There is no evidence of venous flow in the left GSV. IMPRESSION: 1. Successful radiofrequency ablation of the left greater saphenous vein. 2. There is no evidence of deep vein thrombosis in the left lower extremity. LUIS KAM D.O. DR: PEE/henrik JOB# [id number]
== END | disposition home or self-care (01) ==
LOC: RAD 10:06
PROVIDERS: ATTEND Internal Medicine Interventional Cardiology
DX: I87.2 Venous insufficiency (chronic) (peripheral) (principal)
CPT/HCPCS: 93971

== ENCOUNTER → 2019-11-01 | Outpatient (CLI) | payer MEDICARE, MEDICAID ==
[~2019-11-01] MED LIST changes: +PANT40TA5 PO; -PANT40TA6 PO
--- NOTE | 2019-11-01 23:02 | PRP ---
DATE OF PROCEDURE: 11/01/2019 POST VENOUS ABLATION DOPPLER ULTRASOUND INDICATION FOR PROCEDURE: Status post radiofrequency ablation of the left small saphenous vein. FINDINGS: There is no evidence of deep vein thrombosis in the left lower extremity. The left small saphenous vein appears noncompressible. Hyperechoic material is visualized in the left small saphenous vein. There is no evidence of venous flow in the left small saphenous vein. IMPRESSION: 1. Successful radiofrequency ablation of the left small saphenous vein. 2. There is no evidence of deep vein thrombosis in the left lower extremity. LUIS KAM D.O. DR: PEE/henrik JOB# [id number]
== END | disposition home or self-care (01) ==
LOC: RAD 13:10
PROVIDERS: ATTEND Internal Medicine Interventional Cardiology
DX: I87.2 Venous insufficiency (chronic) (peripheral) (principal)
CPT/HCPCS: 93971

== ENCOUNTER → 2020-01-16 | Outpatient (CLI) | payer MEDICARE, MEDICAID ==
[~2020-01-16] MED LIST changes: -HYDR-2370 PO; -PANT40TA5 PO; +PANT40TA6 PO; +[UNRECOGNIZED DRUG - CODE] PO
== END | disposition home or self-care (01) ==
LOC: NPLAB 18:15
PROVIDERS: ATTEND Nurse Practitioner Adult Health
DX: L91.8 Other hypertrophic disorders of the skin (principal); R30.0 Dysuria
CPT/HCPCS: 87077; 87086; 87186

== ENCOUNTER 2020-01-20 09:57 | Emergency (ER) | payer MEDICARE, MEDICAID ==
[~2020-01-20] VITALS: Ht 160 cm; Wt 101.2 kg
[2020-01-20 10:06] VITALS: BP 168/84
[2020-01-20] MEDS ORDERED: XYLOCAINE 1%-EPI 1:100,000 ONE (10:14)
--- NOTE | 2020-01-20 10:20 | ER.PDOC ---
General Stated Complaint: WOUND CARE, Time seen by MD: 10:13 Source: patient Exam Limitations: no limitations History of Present Illness Initial Procedure Done In ER: no Treated In Another ED/Practice: Yes (Dhiraj Sarabia, 5 days IT PROGRAMMER ANALYST) Symptoms Since Procedure: discharge (persistent bleeding (patient is on Elequis)) Allergies: Coded Allergies: Penicillins (Verified Allergy, Unknown, unknown, 06/13/19) codeine (Verified Allergy, Unknown, 06/13/19) morphine (Verified Allergy, Unknown, 06/13/19) Home Meds Reported Medications Ascorbic Acid (VITAMIN C) 500 Mg Capsule.er, 1 CAP PO DAILY24 for 30 Days, #30 CAP 0 Refills 06/13/19 Spironolactone 25MG (ALDACTONE 25MG) 25 Mg Tablet, 1 TAB PO DAILY, #90 TAB 1 Refill 06/13/19 Sertraline Hcl (ZOLOFT) 25 Mg Tablet, 1 TAB PO HS, #30 TAB 2 Refills 06/13/19 Omeprazole (OMEPRAZOLE) 40 Mg Capsule.dr, 1 CAP PO DAILY, #30 CAP 3 Refills 06/13/19 Montelukast Sodium (MONTELUKAST SODIUM) 10 Mg Tablet, 1 TAB PO HS, #30 TAB 5 Refills 06/13/19 Miconazole Nitrate (Monistat 7) 45 Gm Cream.appl, 1 APPLICATOR VG HS for 7 Days, #45 GRAM 0 Refills 06/13/19 Magnesium Oxide (MAGNESIUM OXIDE) 400 Mg Tablet, 1 TAB PO BID, #60 TAB 5 Refills 06/13/19 Hydrocodone Bit/Acetaminophen (HYDROCODON-ACETAMINOPHEN 5-300) 1 Each Tablet, 1 TAB PO Q6 PRN for PAIN MDD 2 Tablet(s) for 30 Days, #60 TAB 0 Refills 06/13/19 Hydrochlorothiazide (HYDROCHLOROTHIAZIDE) 25 Mg Tablet, 1 TAB PO BID, #30 TAB 5 Refills 06/13/19 Mag Hydrox/Al Hydrox/Simeth (GILMA-LANTA LIQUID) 355 Ml Oral.susp, 30 ML PO Q4 PRN for INDIGESTION 06/13/19 Apixaban (Eliquis) 5 Mg Tablet, 5 MG PO BID, TABLET 06/13/19 Docusate Sodium (COLACE) 100 Mg Capsule, 1 CAP PO DAILY24 for 30 Days, #60 CAP 0 Refills 06/13/19 Cholecalciferol (Vitamin D3) (VITAMIN D3) 3,000 Unit Tablet, 1000 UNIT PO DAILY24, TAB 06/13/19 Celecoxib (CELEBREX) 100 Mg Capsule, 1 CAP PO DAILY24, #60 CAP 3 Refills 06/13/19 Fluticasone/Vilanterol (Breo Ellipta 100-25 Mcg INH) 1 Each Aer.pow.ba, 1 EACH IH DAILY24, PKG 06/13/19 Diphenhydramine Hcl (BENADRYL ALLERGY) 25 Mg Tablet, 0.5 TAB PO BID PRN for ALLERGIES, #14 TAB 0 Refills 06/13/19 Aspirin (ASPIR 81) 81 Mg Tablet.dr, 1 TAB PO DAILY24 for 30 Days, #30 TAB 0 Refills 06/13/19 Acetaminophen (ACETAMINOPHEN) 500 Mg Tablet, 1 TAB PO Q6 PRN for pain or fever for 30 Days, #60 TAB 0 Refills 06/13/19 Insulin Lispro (HUMALOG) 100 Unit/1 Ml Vial, 100 UNIT SQ ACHS, VIAL SLIDING SCALE BS 201-250= 2 UNITS BS 251-300= 4 UNITS BS 301-350= 6 UNITS BS 351-400= 8 UNITS IF BS IS GREATER THAN 401 CALL MD/PICU NURSE/PA 05/02/14 Solifenacin Succinate (VESICARE) 5 Mg Tablet, 5 MG PO DAILY, TABLET 05/02/14 Aripiprazole (ABILIFY) 5 Mg Tablet, 5 MG PO DAILY 05/30/13 Atorvastatin Calcium (ATORVASTATIN CALCIUM) 40 Mg Tablet, 40 MG PO HS 05/30/13 Trazodone Hcl (TRAZODONE HCL) 50 Mg Tablet, 50 MG PO HS 05/30/13 Gabapentin (GABAPENTIN) 400 Mg Capsule, 400 MG PO HS 05/30/13 Past Medical History Medical History: angina, asthma, cardiac problems, congestive heart failure, C OPD, diabetes, high cholesterol, heart attack, heart valve disease, hypertension, vascular disease Surgical History: appendectomy, cholecystectomy, hysterectomy, knee Family History Significant Family History: no pertinent family hx Social History Smoking: non-smoker Alcohol Use: none Drug Use: none Constitutional: no symptoms reported EENTM: no symptoms reported Respiratory: no symptoms reported Cardiovascular: no symptoms reported Gastrointestinal: no symptoms reported Genitourinary: no symptoms reported Musculoskeletal: no symptoms reported Skin: see HPI Psychiatric/Neurological: no symptoms reported Endocrine: no symptoms reported Hematologic/Lymphatic: see HPI (persistent bleeding from superficial surgical site) All Other Systems: Reviewed and Negative Physical Exam General Appearance: alert, no distress Neuro/Vascular/Tendon: no vascular compromise, sensation nml Skin: no infection (persistent dark red blood oozing from left superficial surgical site) Head/ENT: nml inspection, pharynx nml Neck/Back: nml inspection, non-tender Respiratory: no resp. distress, breath sounds nml CVS: reg. rate & rhythm (no tachycardia c/w blood volume depletion; no hypotension), heart sounds nml Abdomen: non-tender Results/Orders Results/Orders Orders - DANICA SOUTH DO Lidocaine Hcl/Epinephrine (Xylocaine 1%- (01/20/20 10:14) Vital Signs Date Time Temp Pulse Resp B/P (MAP) Pulse Ox O2 Delivery O2 Flow Rate FiO2 01/20/20 10:06 98.1 94 18 01/20/20 10:06 98.1 94 18 95 01/20/20 10:06 98.1 94 18 168/84 (112) 95 Room Air Progress Progress wound anesthetized with 1%lido+epi to constrict vasculature, silver nitrate applied, bleeding ceased, sterile dressing applied ER DEPART Departure Time of Disposition: 10:32 Disposition: 01 HOME, SELF-CARE Impression: Primary Impression: Post-operative haemorrhage Condition: Improved Patient Instructions: Postsurgical Bleeding Referrals: KONG SARABIA PICU NURSE (PCP) PRIMARY CARE PROVIDER Additional Instructions: Maintain today's bandage until Tuesday morning to allow a strong clot to form. Hold today's elequis dose--resume taking your regular dose of elequis tomorrow. Return to ER if bleeding recurs/persists. Follow up with Kong Sarabia this week for reevaluation. Duration or Time Spent with Pa: 15 min DANICA SOUTH DO Jan 20, 2020 10:20
== END 2020-01-20 10:40 | disposition home or self-care (01) ==
LOC: ER 09:57
DX: L76.22 Postprocedural hemorrhage of skin and subcutaneous tissue following other procedure (principal); E11.59 Type 2 diabetes mellitus with other circulatory complications; E78.00 Pure hypercholesterolemia, unspecified; I11.0 Hypertensive heart disease with heart failure; I25.2 Old myocardial infarction; I50.9 Heart failure, unspecified; J44.9 Chronic obstructive pulmonary disease, unspecified; Z79.01 Long term (current) use of anticoagulants; Z79.1 Long term (current) use of non-steroidal anti-inflammatories (NSAID); Z79.4 Long term (current) use of insulin; Z79.51 Long term (current) use of inhaled steroids; Z79.82 Long term (current) use of aspirin; Z79.899 Other long term (current) drug therapy; Z88.0 Allergy status to penicillin; Z88.5 Allergy status to narcotic agent; Z90.49 Acquired absence of other specified parts of digestive tract; Z90.710 Acquired absence of both cervix and uterus
CPT/HCPCS: 99281

== ENCOUNTER → 2020-03-03 | Outpatient (CLI) | payer MEDICARE, OTHER ==
[~2020-03-03] MED LIST changes: -MONT10TA11 PO; +MONT10TA95 PO; +SERT50TA5 PO
== END | disposition home or self-care (01) ==
LOC: NPLAB 09:08
PROVIDERS: ATTEND Nurse Practitioner Adult Health
DX: N39.0 Urinary tract infection, site not specified (principal)
CPT/HCPCS: 87086

== ENCOUNTER 2020-03-04 20:51 | Emergency (ER) | payer MEDICARE, MEDICAID ==
[~2020-03-04] VITALS: Ht 160 cm; Wt 101.2 kg
[~2020-03-04 20:51] MED LIST changes: -SERT50TA5 PO
[2020-03-04] MEDS ORDERED: SERT50TA5 PO (21:05)
[2020-03-04 21:09] VITALS: BP 155/75
--- NOTE | 2020-03-04 21:34 | ER.PDOC ---
General Chief Complaint: General Complaint Stated Complaint: HYPERGLYCEMIA TRAVEL OUT OF US: No Time seen by MD: 21:31 Source: patient Exam Limitations: no limitations History of Present Illness Initial Comments Patient was told today by her PCP that her blood sugar on her lab draw yesterday was high so she decided to come to the ED. She does not have any complaints. She took her Insulin at 06:30 this evening. Severity: moderate Associated Symptoms: denies symptoms Allergies: Coded Allergies: Penicillins (Verified Allergy, Unknown, unknown, 06/13/19) codeine (Verified Allergy, Unknown, 06/13/19) morphine (Verified Allergy, Unknown, 06/13/19) Home Meds Reported Medications Sertraline Hcl (SERTRALINE HCL) 50 Mg Tablet, 50 MG PO DAILY24, TAB 03/04/20 Ascorbic Acid (VITAMIN C) 500 Mg Capsule.er, 1 CAP PO DAILY24 for 30 Days, #30 CAP 0 Refills 06/13/19 Omeprazole (OMEPRAZOLE) 40 Mg Capsule.dr, 1 CAP PO DAILY, #30 CAP 3 Refills 06/13/19 Montelukast Sodium (MONTELUKAST SODIUM) 10 Mg Tablet, 1 TAB PO HS, #30 TAB 5 Refills 06/13/19 Miconazole Nitrate (Monistat 7) 45 Gm Cream.appl, 1 APPLICATOR VG HS for 7 Days, #45 GRAM 0 Refills 06/13/19 Apixaban (Eliquis) 5 Mg Tablet, 5 MG PO BID, TABLET 06/13/19 Cholecalciferol (Vitamin D3) (VITAMIN D3) 3,000 Unit Tablet, 1000 UNIT PO DAILY24, TAB 06/13/19 Insulin Lispro (HUMALOG) 100 Unit/1 Ml Vial, 100 UNIT SQ ACHS, VIAL SLIDING SCALE BS 201-250= 2 UNITS BS 251-300= 4 UNITS BS 301-350= 6 UNITS BS 351-400= 8 UNITS IF BS IS GREATER THAN 401 CALL MD/DIGITAL ANALYST/PA 05/02/14 Solifenacin Succinate (VESICARE) 5 Mg Tablet, 5 MG PO DAILY, TABLET 05/02/14 Aripiprazole (ABILIFY) 5 Mg Tablet, 5 MG PO DAILY 05/30/13 Atorvastatin Calcium (ATORVASTATIN CALCIUM) 40 Mg Tablet, 40 MG PO HS 05/30/13 Gabapentin (GABAPENTIN) 400 Mg Capsule, 400 MG PO HS 05/30/13 Discontinued Reported Medications Spironolactone 25MG (ALDACTONE 25MG) 25 Mg Tablet, 1 TAB PO DAILY, #90 TAB 1 Refill 06/13/19 Sertraline Hcl (ZOLOFT) 25 Mg Tablet, 1 TAB PO HS, #30 TAB 2 Refills 06/13/19 Magnesium Oxide (MAGNESIUM OXIDE) 400 Mg Tablet, 1 TAB PO BID, #60 TAB 5 Refills 06/13/19 Hydrocodone Bit/Acetaminophen (HYDROCODON-ACETAMINOPHEN 5-300) 1 Each Tablet, 1 TAB PO Q6 PRN for PAIN MDD 2 Tablet(s) for 30 Days, #60 TAB 0 Refills 06/13/19 Hydrochlorothiazide (HYDROCHLOROTHIAZIDE) 25 Mg Tablet, 1 TAB PO BID, #30 TAB 5 Refills 06/13/19 Mag Hydrox/Al Hydrox/Simeth (GILMA-LANTA LIQUID) 355 Ml Oral.susp, 30 ML PO Q4 PRN for INDIGESTION 06/13/19 Docusate Sodium (COLACE) 100 Mg Capsule, 1 CAP PO DAILY24 for 30 Days, #60 CAP 0 Refills 06/13/19 Celecoxib (CELEBREX) 100 Mg Capsule, 1 CAP PO DAILY24, #60 CAP 3 Refills 06/13/19 Fluticasone/Vilanterol (Breo Ellipta 100-25 Mcg INH) 1 Each Aer.pow.ba, 1 EACH IH DAILY24, PKG 06/13/19 Diphenhydramine Hcl (BENADRYL ALLERGY) 25 Mg Tablet, 0.5 TAB PO BID PRN for ALLERGIES, #14 TAB 0 Refills 06/13/19 Aspirin (ASPIR 81) 81 Mg Tablet.dr, 1 TAB PO DAILY24 for 30 Days, #30 TAB 0 Refills 06/13/19 Acetaminophen (ACETAMINOPHEN) 500 Mg Tablet, 1 TAB PO Q6 PRN for pain or fever for 30 Days, #60 TAB 0 Refills 06/13/19 Trazodone Hcl (TRAZODONE HCL) 50 Mg Tablet, 50 MG PO HS 05/30/13 Past Medical History Medical History: coronary artery disease, cardiac problems, diabetes, high cholesterol, hypertension Surgical History: appendectomy, cholecystectomy, hysterectomy, knee Social History Alcohol Use: none Drug Use: none Review of Systems Constitutional: no symptoms reported EENTM: no symptoms reported Respiratory: no symptoms reported Cardiovascular: no symptoms reported Gastrointestinal: no symptoms reported Musculoskeletal: no symptoms reported All Other Systems: Reviewed and Negative Physical Exam General Appearance: No Apparent Distress, WD/WN Neck: Non-Tender, Full Range of Motion, Supple, Normal Inspection Respiratory: chest non-tender, lungs clear, normal breath sounds, no respiratory distress CVS: reg rate & rhythm, no murmur, no gallop, pulses nml, nml capillary refill Gastrointestinal: Normal Bowel Sounds, No Organomegaly, No Pulsatile Mass, Non Tender Back: Normal Inspection, No CVA Tenderness, No Vertebral Tenderness Extremities: Normal Range of Motion, Non-Tender, Normal Inspection, No Pedal Edema Neurologic/Psychiatric: channeler outsole II-XII NML as Tested, No Motor/Sensory Deficits, Alert Skin: Normal Color Results/Orders Results/Orders Orders - LATOYA ARTEAGA MD Basic Metabolic Panel (03/04/20 21:27) Potassium Chloride (Klor-Con 10) (03/04/20 22:50) Potassium Chloride (Klor-Con 10) (03/04/20 22:49) Insulin Regular, Human (Humulin R) (03/04/20 22:49) Ekg-Routine (03/04/20 22:49) Insulin Regular, Human (Humulin R) (03/04/20 22:51) Vital Signs Date Time Temp Pulse Resp B/P (MAP) Pulse Ox O2 Delivery O2 Flow Rate FiO2 03/04/20 21:09 97.7 77 16 95 03/04/20 21:09 97.7 77 16 155/75 (101) 95 03/04/20 21:09 97.7 77 16 Administered Medications Medications (Trade) Dose Ordered Sig/Teresa Route PRN Reason Start Time Stop Time Status Last Admin Dose Admin Insulin Human Regular (Humulin R) 10 unit STAT STAT IV 03/04/20 22:49 03/04/20 22:52 DC 03/04/20 23:00 10 UNIT Potassium Chloride (Klor-Con 10) 40 meq STAT STAT PO 03/04/20 22:49 03/04/20 22:52 DC 03/04/20 23:00 40 MEQ Laboratory Tests Test 03/04/20 21:50 Sodium Level 133 mmol/L (132-145) Potassium Level 3.0 mmol/L (3.6-5.2) L Chloride Level 96.0 mmol/L (96-109) Carbon Dioxide Level 30.2 mmol/L (20.0-32) Glucose Level 484 mg/dL (70-110) *H Blood Urea Nitrogen 26 mg/dL (7-18) H Creatinine 2.02 mg/dL (0.59-1.40) *H Calcium Level 9.3 mg/dL (8.4-10.5) Anion Gap 9.8 Estimated GFR () 28.7 (>/=60) Est GFR (CKD-EPI)(Non-Afr Bahraini) 23.7 (>/=60) BUN/Creatinine Ratio 12.0 Progress Progress Patient's blood sugar is 329 after she was given insulin. She was also given KCL 40meq PO. She has no complaints and feels great to go home. Her creatinine is 2 but this is about her baseline for her chronic kidney disease as she told me and reviewing he past creatinine. EKG/XRAY/CT/US EKG Comments: Rate 75, A fib ER DEPART Departure Time of Disposition: 23:46 Disposition: 01 HOME, SELF-CARE Impression: Primary Impression: Uncontrolled diabetes mellitus Additional Impression: Hyperglycemia Condition: Improved Referrals: KONG BINGHAM DIGITAL ANALYST (PCP) PRIMARY CARE PROVIDER Additional Instructions: Continue home medications Increase your Potassium Chloride to 40meq twice tomorrow only then resume normal dosing F/U with your PCP in 2-3 days Return to ED f worsening symptoms or concerns Duration or Time Spent with Pa: 30 min Problem Qualifiers Primary Impression: Uncontrolled diabetes mellitus Diabetes mellitus type: other specified (including RO) Glycemic state: with hyperglycemia Qualified Codes: E13.65 - Other specified diabetes mellitus with hyperglycemia LATOYA ARTEAGA MD Mar 04, 2020 21:34
[2020-03-04 22:26] LABS: CALCIUM 9.3 mg/dL (8.4-10.5); CARBON DIOXIDE 30.2 mmol/L (20.0-32)
[2020-03-04] MEDS ORDERED: KLOR-CON 10 PO STA (22:49)
[2020-03-04] MEDS ORDERED: HUMULIN R IV STA (22:49)
[2020-03-04] MEDS ORDERED: KLOR-CON 10 PO ONE (22:50)
[2020-03-04] MEDS ORDERED: HUMULIN R ONE (22:51)
--- NOTE | 2020-03-04 23:16 | PCM.EKG ---
[facility] Test Date: 2020-03-04 Test Time: 23:00:54 Pat Name: JATIN CHAPA Department: Patient ID: [facility]-[id number] Room: Gender: F Shuffle Board Operator: [id number] : 1940 Requested By: LATOYA ARTEAGA Order Number: [id number] Reading MD: Latoya ARTEAGA Measurements Intervals Cle[place] Rate: 75 P: AR: QRS: -65 QRSD: 100 T: 69 QT: 444 QTc: 496 Interpretive Statements Atrial fibrillation LAD, consider left anterior fascicular block Low voltage, precordial leads Abnormal R-wave progression, late transition Borderline prolonged QT interval Compared to ECG 06/19/2019 09:05:24 Low QRS voltage now present Sinus rhythm no longer present Atrial premature complex(es) no longer present Myocardial infarct finding no longer present Electronically Signed On 03-05-2020 6:43:31 SHOW HOST/HOSTESS by Latoya ARTEAGA Please click the below link to view image of tracing.
--- NOTE | 2020-03-05 00:30 | NUR ---
FUNGAL INFECTION PATIENT HAS FUNGAL INFECTION WITH STRONG ODOR BENEATH BILATERAL BREASTS. BRIGHT RED, CIRCULAR RASH WITH STRONG ODOR/DRAINAGE. INSTRUCTED PATIENT TO USE ANITFUNGAL CREAM PROVIDED TO HER BY STAFF TWICE DAILY. CLEANSE IN THE SHOWER, PAT DRY, ALLOW TO AIR DRY, APPLY CREAM AND KEEP DRY THROUGHOUT THE DAY. PATIENT VERBALIZED UNDERSTANDING. DENIES ANY ADDITIONAL QUESTIONS OR CONCERNS.
== END 2020-03-05 00:30 | disposition home or self-care (01) ==
LOC: EDBD 20:51 → ER 20:51
DX: E11.65 Type 2 diabetes mellitus with hyperglycemia (principal); I25.10 Atherosclerotic heart disease of native coronary artery without angina pectoris; E78.00 Pure hypercholesterolemia, unspecified; I10 Essential (primary) hypertension; Z79.01 Long term (current) use of anticoagulants; Z79.1 Long term (current) use of non-steroidal anti-inflammatories (NSAID); Z79.4 Long term (current) use of insulin; Z79.51 Long term (current) use of inhaled steroids; Z79.82 Long term (current) use of aspirin; Z79.899 Other long term (current) drug therapy; Z88.5 Allergy status to narcotic agent; Z88.0 Allergy status to penicillin; Z90.49 Acquired absence of other specified parts of digestive tract; Z90.710 Acquired absence of both cervix and uterus
CPT/HCPCS: 36415; 80048; 82948 ×3; 93005; 96374; 99284; J1815; J3490

== ENCOUNTER → 2020-03-17 | Outpatient (CLI) | payer MEDICARE, MEDICAID ==
[~2020-03-17] MED LIST changes: +SERT50TA5 PO
== END | disposition home or self-care (01) ==
LOC: NPLAB 15:51
PROVIDERS: ATTEND Nurse Practitioner Adult Health
DX: N39.0 Urinary tract infection, site not specified (principal)
CPT/HCPCS: 87086

== ENCOUNTER → 2020-04-01 | Outpatient (CLI) | payer MEDICARE, MEDICAID ==
--- NOTE | 2020-04-01 10:02 | DIREP ---
PROCEDURE:XRAY RIBS 3VWS-LT COMPARISON:[facility], CR, XRAY CHEST SINGLE VW, 05/18/2019, 12:01 PM. INDICATIONS:R07.1 CHEST PAIN ON BREATHING, R07.89 CHEST PAIN FINDINGS: RIBS:There is a mildly displaced fracture of the left 8th posterior rib. OTHER:A small left pleural effusion is seen with mild blunting at the left costophrenic angle. Median sternotomy changes are seen with a left atrial appendage occlusive device. CONCLUSION:There is a mildly displaced fracture of the left 8th posterior rib with a small left pleural effusion. No pneumothorax is seen. Dictated by: Bg Adan M.D. on 04/01/2020 at 09:57 AM
--- NOTE | 2020-04-01 10:06 | DIREP ---
PROCEDURE:CHEST 2 VIEWS COMPARISON:[facility], [facility], XRAY RIBS 3VWS-LT, 04/01/2020, 09:32 AM. [facility], [facility], XRAY CHEST SINGLE VW, 05/18/2019, 12:01 PM. INDICATIONS:R07.1 CHEST PAIN ON BREATHING, R07.89 CHEST PAIN FINDINGS: LUNGS/PLEURA:There is a small left pleural effusion without infiltrates. No pneumothorax is seen. VASCULATURE:Normal. Unremarkable pulmonary vasculature. CARDIAC:Median sternotomy changes are seen with borderline cardiomegaly. A left atrial appendage occlusive device is again seen. MEDIASTINUM:Normal. No visible mass or adenopathy. BONES:A mildly displaced fracture of the left 8th posterior rib is demonstrated on current rib films. OTHER:Negative. CONCLUSION:There is a small left pleural effusion and mildly displaced fracture of the left 8th posterior rib. No pneumothorax is seen. Borderline cardiomegaly is noted. Dictated by: Bg Adan M.D. on 04/01/2020 at 10:03 AM
== END | disposition home or self-care (01) ==
LOC: RAD 09:14
PROVIDERS: ATTEND Nurse Practitioner Adult Health
DX: S22.32XA Fracture of one rib, left side, initial encounter for closed fracture (principal); X58.XXXA Exposure to other specified factors, initial encounter; Y93.89 Activity, other specified; Y92.89 Other specified places as the place of occurrence of the external cause; Y99.8 Other external cause status; R07.1 Chest pain on breathing; R07.89 Other chest pain; J90 Pleural effusion, not elsewhere classified
CPT/HCPCS: 71046; 71100-LT

== ENCOUNTER → 2020-04-09 | Outpatient (CLI) | payer MEDICARE, MEDICAID ==
--- NOTE | 2020-04-09 09:40 | DIREP ---
PROCEDURE:XRAY RIBS 3VWS-LT, 6 images COMPARISON:[facility], CR, XRAY CHEST 2 VWS, 04/09/2020, 08:51 AM. INDICATIONS:R06.02 SHORTNESS OF BREATH FINDINGS: RIBS:Left lateral 8th rib fracture. OTHER:Median sternotomy, valve replacement, and pulmonary vascular congestion/interstitial infiltrates noted. CONCLUSION:Acute left lateral 8th rib fracture. No pneumothorax. Dictated by: Deon Chester M.D. on 04/09/2020 at 08:37 AM Read in [place]
--- NOTE | 2020-04-09 10:09 | DIREP ---
PROCEDURE:CHEST 2 VIEWS COMPARISON:[facility], CR, XRAY RIBS 3VWS-LT, 04/09/2020, 08:51 AM. [facility], [facility], XRAY CHEST 2 VWS, 04/01/2020, 09:32 AM. INDICATIONS:CHEST PAIN ON BREATHING FINDINGS: LUNGS/PLEURA:Some improvement in small left pleural effusion and basilar atelectasis. No pneumothorax. CARDIAC:Borderline cardiac silhouette, aortic valve prosthesis, right atrial clip and normal pulmonary vascularity. Aortic arch calcifications. MEDIASTINUM:Normal BONES:Left lateral 8th rib fracture best seen on rib series. OTHER:No additional findings. CONCLUSION:Improved small left pleural effusion. No pneumothorax. Dictated by: Lorena Alvarado MD on 04/09/2020 at 10:03 AM
== END | disposition home or self-care (01) ==
LOC: RAD 08:16
PROVIDERS: ATTEND Nurse Practitioner Adult Health
DX: S22.32XA Fracture of one rib, left side, initial encounter for closed fracture (principal); R06.02 Shortness of breath; R07.1 Chest pain on breathing; X58.XXXA Exposure to other specified factors, initial encounter; Y93.89 Activity, other specified; Y92.89 Other specified places as the place of occurrence of the external cause; Y99.8 Other external cause status; J90 Pleural effusion, not elsewhere classified
CPT/HCPCS: 71046; 71100-LT

== ENCOUNTER 2020-04-18 19:52 | Emergency (ER) | payer MEDICARE, MEDICAID ==
[~2020-04-18] VITALS: Ht 160 cm; Wt 101.6 kg
[2020-04-18 19:54] VITALS: BP 138/74
--- NOTE | 2020-04-18 20:12 | ER.PDOC ---
General Chief Complaint: Dyspnea/Respdistress Stated Complaint: SOB Time seen by MD: 20:10 Source: patient Exam Limitations: no limitations History of Present Illness Initial Comments Shortness of breath and leg swelling today. Patient ran out of her Lasix since yesterday. No chest pain, fever or cough. Severity: moderate Activities at Onset: none Prior Episodes/Possible Cause: occasional episodes Associated Symptoms: edema Prior symptoms/Treatment: Similar symptoms previous Allergies: Coded Allergies: Penicillins (Verified Allergy, Unknown, unknown, 06/13/19) codeine (Verified Allergy, Unknown, 06/13/19) morphine (Verified Allergy, Unknown, 06/13/19) Home Meds Reported Medications Insulin Degludec (Tresiba) 100 Unit/Ml Vial, 40 UNITS SQ BID 04/18/20 Furosemide (FUROSEMIDE) 20 Mg Tablet, 20 MG PO DAILY24, TAB 04/18/20 Fluticasone/Vilanterol (Breo Ellipta 100-25 Mcg INH) 1 Each Aer.pow.ba, 1 EACH IH DAILY24, PKG 04/18/20 Bumetanide (BUMETANIDE) 1 Mg Tablet, 1 MG PO AM, TAB 04/18/20 Sertraline Hcl (SERTRALINE HCL) 50 Mg Tablet, 50 MG PO DAILY24, TAB 03/04/20 Ascorbic Acid (VITAMIN C) 500 Mg Capsule.er, 1 CAP PO DAILY24 for 30 Days, #30 CAP 0 Refills 06/13/19 Montelukast Sodium (MONTELUKAST SODIUM) 10 Mg Tablet, 1 TAB PO HS, #30 TAB 5 Refills 06/13/19 Apixaban (Eliquis) 5 Mg Tablet, 5 MG PO BID, TABLET 06/13/19 Cholecalciferol (Vitamin D3) (VITAMIN D3) 3,000 Unit Tablet, 1000 UNIT PO DAILY24, TAB 06/13/19 Insulin Lispro (HUMALOG) 100 Unit/1 Ml Vial, 100 UNIT SQ ACHS, VIAL SLIDING SCALE BS 201-250= 2 UNITS BS 251-300= 4 UNITS BS 301-350= 6 UNITS BS 351-400= 8 UNITS IF BS IS GREATER THAN 401 CALL MD/MUSIC EXECUTIVE/PA 05/02/14 Solifenacin Succinate (VESICARE) 5 Mg Tablet, 5 MG PO DAILY, TABLET 05/02/14 Aripiprazole (ABILIFY) 5 Mg Tablet, 5 MG PO DAILY 05/30/13 Atorvastatin Calcium (ATORVASTATIN CALCIUM) 40 Mg Tablet, 40 MG PO HS 05/30/13 Gabapentin (GABAPENTIN) 400 Mg Capsule, 400 MG PO HS 05/30/13 Discontinued Reported Medications Omeprazole (OMEPRAZOLE) 40 Mg Capsule.dr, 1 CAP PO DAILY, #30 CAP 3 Refills 06/13/19 Miconazole Nitrate (Monistat 7) 45 Gm Cream.appl, 1 APPLICATOR VG HS for 7 Days, #45 GRAM 0 Refills 06/13/19 Past Medical History Medical History: coronary artery disease, cardiac problems, diabetes, high cholesterol, hypertension Surgical History: appendectomy, cholecystectomy, hysterectomy, knee Family History Significant Family History: no pertinent family hx Social History Smoking: non-smoker Alcohol Use: none Drug Use: none Review of Systems Constitutional: no symptoms reported EENTM: no symptoms reported Respiratory: see HPI Cardiovascular: no symptoms reported Gastrointestinal: no symptoms reported All Other Systems: Reviewed and Negative Physical Exam General Appearance: No Apparent Distress, WD/WN Neck: Non-Tender, Full Range of Motion, Supple, Normal Inspection Respiratory: chest non-tender, no respiratory distress, crackles Cardiovascular: Normal Peripheral Pulses, Regular Rate, Rhythm, No Edema, No Gallop, No JVD, No Murmur Gastrointestinal: Normal Bowel Sounds, No Organomegaly, No Pulsatile Mass, Non Tender, Soft Extremities: Pedal Edema (2-3+) Neurologic/Psychiatric: mechanic welder II-XII NML as Tested, No Motor/Sensory Deficits, Alert, Normal Mood/Affect, Oriented x 3 Skin: Normal Color, Warm/Dry Lymphatic: No Adenopathy Results/Orders Results/Orders Orders - LATOYA ARTEAGA MD Cbc With Auto Diff (04/18/20 20:08) Comprehensive Metabolic Panel (04/18/20 20:08) Creatine Kinase (04/18/20 20:08) Creatine Kinase Mb (04/18/20 20:08) Probnp B-Type Phone Engineer (04/18/20 20:08) Troponin I (04/18/20 20:08) D-Dimer (04/18/20 20:08) Arterial Blood Gas (04/18/20 20:08) Xr Chest 1v (04/18/20 20:08) PT (04/18/20 20:08) Partial Thromboplastin Time. (04/18/20 20:08) Ekg-Routine (04/18/20 20:08) Covid19 Antigen Mar Caitlyn (04/18/20 20:08) Furosemide (Lasix) (04/18/20 23:12) Vital Signs Date Time Temp Pulse Resp B/P (MAP) Pulse Ox O2 Delivery O2 Flow Rate FiO2 04/18/20 19:54 98.4 72 22 04/18/20 19:54 98.4 72 22 94 04/18/20 19:54 98.4 72 22 138/74 (95) 94 Room Air Laboratory Tests Test 04/18/20 20:09 04/18/20 20:16 04/18/20 20:55 SARS-CoV-2 Antigen (Rapid) NEGATIVE (NEGATIVE) White Blood Count 4.8 10^3/uL (4.5-11.0) Red Blood Count 3.13 10^6/uL (4.00-5.20) L Hemoglobin 8.9 g/dL (12.0-15.0) L Hematocrit 28.9 % (36.0-46.0) L Mean Corpuscular Volume 92.3 fL (78-100) Mean Corpuscular Hemoglobin 28.4 pg (26-34) Mean Corpuscular Hemoglobin Concent 30.8 g/dL (33-36.5) L Red Cell Distribution Width 13.8 % (11.5-14.5) Platelet Count 227 10^3/uL (150-400) Mean Platelet Volume 9.7 fL (7.8-11.0) Neutrophils (%) (Auto) 67.7 % (41.0-85.0) Lymphocytes (%) (Auto) 23.1 % (24.0-44.0) L Monocytes (%) (Auto) 6.1 % (5.0-12.0) Neutrophils # (Auto) 3.2 10^3/uL (1.8-7.7) Lymphocytes # (Auto) 1.10 10^3/uL1 (1.0-4.8) Monocytes # (Auto) 0.3 10^3/uL (0.3-0.8) Absolute Immature Granulocyte (auto 0.01 10^3 u/L (0-2) Absolute Eosinophils (auto) 0.1 10^3/uL (0.0-0.2) Immature Granulocytes % 0.20 % (0.00-0.50) Eosinophils % 2.5 % (0.0-5.0) Basophils % 0.4 % (0.0-0.2) H Basophils # 0.0 10^3/uL (0.0-0.1) Prothrombin Time 11.8 SEC (9.3-11.3) H Prothrombin Time INR (Non-Therap) 1.2 Activated Partial Thromboplast Time 27.5 SEC (24.67-30.72) D-Dimer 1.52 mg/L (0.19-0.49) *H Sodium Level 144 mmol/L (132-145) # Potassium Level 3.7 mmol/L (3.6-5.2) Chloride Level 107.0 mmol/L (96-109) Carbon Dioxide Level 29.0 mmol/L (20.0-32) Anion Gap 11.7 Blood Urea Nitrogen 22 mg/dL (7-18) H Creatinine 1.64 mg/dL (0.59-1.40) H Estimated GFR () 36.5 (>/=60) Est GFR (CKD-EPI)(Non-Afr [place]) 30.1 (>/=60) BUN/Creatinine Ratio 13.0 Glucose Level 243 mg/dL (70-110) H Calcium Level 8.8 mg/dL (8.4-10.5) Total Bilirubin 0.4 mg/dL (0.2-1.0) Aspartate Amino Transferase (AST) 17 U/L (0-35) Alanine Aminotransferase (ALT) 16 U/L (12-78) Alkaline Phosphatase 192 U/L (50-136) H Total Creatine Kinase 44 U/L (26-192) Creatine Kinase MB < 0.5 ng/mL (0.5-3.6) L Troponin I 0.03 ng/mL (0.00-0.05) Pro-B-Type Natriuretic Peptide 3181 pg/mL (0-450) H Total Protein 7.0 g/dL (6.4-8.2) Albumin 2.5 g/dL (3.4-5.0) L Globulin 4.5 Albumin/Globulin Ratio 0.555 Blood Gas Sample Site LEFT BRACHIAL Blood pH 7.443 (7.350-7.450) Blood Gas PCO2 37.5 mmHg (35.0-45.0) Blood Gas PO2 56.7 mmHg (80.0-100.0) L Blood Gas HCO3 25.1 mmol/L (22.0-26.0) Blood Gas Base Excess 1.0 mmol/L (-2.0-2.0) Chapin Test POSITIVE Arterial Blood Oxygen Saturation 88.1 % (94.0-97.00) L Deoxyhemoglobin 11.8 % (0.0-5.0) H Carboxyhemoglobin 0.3 % (0.0-3.9) Methemoglobin 0.2 % (0.00-5.0) Total Hemoglobin 9.5 % (12.0-17.8) L Total Oxygen Concentration 11.8 % (13.5-17.5) L Blood Gas Temperature 37 FiO2 21 % (20-101) Total Carbon Dioxide 26.2 mmol/L (23-27) Progress Progress CXR: Borderline cardiomegaly, without evidence of cardiac decompensation at this time. 2. Evidence of prior CABG procedure. 3. No active pulmonary disease. Patient refused to be admitted, she signed and left against medical advice. She understands that leaving AMA may result in worsening condition, cardiopulmonary arrest and . I told her to return to ED any any time she feels worse and she voiced understanding. EKG/XRAY/CT/US EKG: no ST T wave changes EKG Comments: Accelerated Junctional rythm, rate 73 ER DEPART Departure Time of Disposition: 23:32 Disposition: 07 AGAINST MEDICAL ADVICE Impression: Primary Impression: Acute respiratory failure Additional Impression: CHF exacerbation Condition: Against Medical Advice Referrals: KONG BINGHAM MUSIC EXECUTIVE (PCP) PRIMARY CARE PROVIDER Duration or Time Spent with Pa: 60 min Problem Qualifiers Primary Impression: Acute respiratory failure Respiratory failure complication: hypoxia Qualified Codes: J96.01 - Acute respiratory failure with hypoxia Additional Impression: CHF exacerbation Heart failure type: unspecified Qualified Codes: I50.9 - Heart failure, unspecified LATOYA ARTEAGA MD Apr 18, 2020 20:12
[2020-04-18 20:22] LABS: BASOPHIL % 0.4 % (0.0-0.2); EOSINOPHIL # 0.1 10^3/uL (0.0-0.2); EOSINOPHIL % 2.5 % (0.0-5.0); LYMPHOCYTES % 23.1 % (24.0-44.0); MEAN CORP HGB 28.4 pg (26-34); MONOCYTES # 0.3 10^3/uL (0.3-0.8); MONOCYTES % 6.1 % (5.0-12.0); NEUTROPHIL # 3.2 10^3/uL (1.8-7.7); NEUTROPHILS % 67.7 % (41.0-85.0); PLATELET COUNT 227 10^3/uL (150-400); RED CELL DISTRIBUTION WIDTH 13.8 % (11.5-14.5)
--- NOTE | 2020-04-18 20:41 | NUR ---
[facility] CALLED WITH DDIMER OF 1.52 AT THIS TIME.
[2020-04-18 20:47] LABS: GLUCOSE 243 mg/dL (70-110)
[2020-04-18 20:48] LABS: ALANINE AMINOTRANSFERASE(ML) 16 U/L (12-78); ALKALINE PHOSPHATASE 192 U/L (50-136); ASPARTATE AMINO TRANSFERASE 17 U/L (0-35); CALCIUM 8.8 mg/dL (8.4-10.5)
--- NOTE | 2020-04-18 20:48 | DIREP ---
PROCEDURE:CHEST X-RAY, FRONTAL VIEW COMPARISON:[facility], CR, XRAY CHEST SINGLE VW, 05/18/2019, 12:01 PM. [facility], CR, XRAY CHEST SINGLE VW, 03/04/2017, 03:04 PM. INDICATIONS:Shortness of breath FINDINGS: LUNGS/PLEURA:No significant pulmonary parenchymal abnormalities. No effusions. VASCULATURE:The pulmonary vasculature is normal. CARDIAC:The heart is borderline enlarged. Median sternotomy wires and atrial appendage exclusion device noted. MEDIASTINUM:Normal. No visible mass or adenopathy. BONES:There is mild degenerative change of both shoulders. OTHER:Negative. CONCLUSION: 1. Borderline cardiomegaly, without evidence of cardiac decompensation at this time. 2. Evidence of prior CABG procedure. 3. No active pulmonary disease. Dictated by: James Almazan MD on 04/18/2020 at 08:45 PM
[2020-04-18 20:55] VITALS: BP 138/74
[2020-04-18 21:00] LABS: ABG PCO2 37.5 mmHg (35.0-45.0); ABG PH 7.443 (7.350-7.450); HCO3act 25.1 mmol/L (22.0-26.0); pO2 56.7 mmHg (80.0-100.0)
--- NOTE | 2020-04-18 21:10 | PCM.EKG ---
[facility] Test Date: 2020-04-18 Test Time: 20:24:50 Pat Name: JATIN CHAPA Department: Room: Gender: F Page Designer: MARY : 1940 Requested By: LATOYA ARTEAGA Order Number: [id number] Reading MD: Measurements Intervals [place] Rate: 73 P: [place]: QRS: -66 QRSD: 94 T: 69 QT: 411 QTc: 453 Interpretive Statements Accelerated junctional rhythm Left anterior fascicular block Low voltage, precordial leads Consider anterior infarct Compared to ECG 03/04/2020 23:00:54 Accelerated junctional rhythm now present Myocardial infarct finding now present Atrial fibrillation no longer present Please click the below link to view image of tracing.
--- NOTE | 2020-04-18 21:12 | NUR ---
LINEN PT PLACED AND REMOVED FROM BEDPAN. LINENS CHANGED. PT PLACED ON 2L NC O2 PER RT VERO AT THIS TIME.
[2020-04-18 21:25] VITALS: BP 144/54
[2020-04-18] MEDS ORDERED: FURO20TA3 PO (22:18)
[2020-04-18] MEDS ORDERED: FLUT1AER IH (22:18)
[2020-04-18] MEDS ORDERED: INSU100V35 SQ (22:18)
[2020-04-18] MEDS ORDERED: BUME1TAB3 PO (22:18)
[2020-04-18 22:55] VITALS: BP 156/76
[2020-04-18 23:11] VITALS: BP 181/88
[2020-04-18] MEDS ORDERED: LASIX ONE (23:12)
--- NOTE | 2020-04-18 23:13 | NUR ---
AMA PATIENT REQUESTING TO SPEAK WITH PHYSICIAN BECAUSE SHE WOULD LIKE TO GO HOME. DR. ARTEAGA AT BEDSIDE TO SPEAK WITH PATIENT, EXPLAINED THAT SHE WOULD NEED TO SIGN AMA FORM, VERBALIZED UNDERSTANDING AND AGREED TO SIGN FORM. DR. GARCIA NOTIFIED OF PATIENT AMA.
--- NOTE | 2020-04-18 23:29 | NUR ---
AMA UPON LEARNING THAT SHE WOULD BE ADMITTED THE PT REQUESTED TO TALK TO THE DOCTOR. SHE SAID "MY FAMILY CAME ALL THE WAY FROM [place] TO GET ME AND I DON'T SEE THE NEED FOR ME TO STAY. I DO NOT WANT TO BE ADMITTED." THE EDP TALKED WITH PT AND THE PT ASKED TO SIGN AMA. PT WAS EXPLAINED ALL THE RISKS AND CONSEQUENCES OF LEAVING AMA BUT STILL WANTED TO SIGN. PT WAS GIVEN AMA FORM TO SIGN.
[2020-04-18] MEDS: LASIX IV STA (23:31)
== END 2020-04-18 23:18 | disposition left against medical advice (07) ==
LOC: ER 19:52 → EDBD 19:52 → EDUNIT# 19:52 → ER 23:18
DX: J96.01 Acute respiratory failure with hypoxia (principal); I50.9 Heart failure, unspecified; I25.10 Atherosclerotic heart disease of native coronary artery without angina pectoris; I11.0 Hypertensive heart disease with heart failure; E11.9 Type 2 diabetes mellitus without complications; E78.00 Pure hypercholesterolemia, unspecified; Z20.822 Contact with and (suspected) exposure to COVID-19; Z79.01 Long term (current) use of anticoagulants; Z79.4 Long term (current) use of insulin; Z79.51 Long term (current) use of inhaled steroids; Z79.899 Other long term (current) drug therapy; Z88.5 Allergy status to narcotic agent; Z88.0 Allergy status to penicillin; Z90.49 Acquired absence of other specified parts of digestive tract; Z90.710 Acquired absence of both cervix and uterus
CPT/HCPCS: 36600; 71045; 80053; 82550; 82553; 82803; 83880; 84484; 85025; 85379; 85610; 85730; 87426; 93005; 96374; 99285; J1940

== ENCOUNTER 2020-04-24 11:49 | Observation (INO) | payer MEDICARE, MEDICAID ==
[~2020-04-24] VITALS: Ht 160 cm; Wt 106.3 kg
[~2020-04-24 11:49] MED LIST changes: +BUME1TAB3 PO; +INSU100V35 SQ; -LISI-410 PO; +LISI20TA21 PO; +MONT10TA20 PO; -MONT10TA95 PO; +SERT-318 PO; +SERT-319 PO; -SERT100T5 PO; -SERT50TA5 PO
--- NOTE | 2020-04-24 12:00 | NUR ---
PT TO ROOM 8 VIA WHEELCHAIR C/C SOB. PT WAS AT PCP THIS MORNING PCP SENT PT TO ER FOR EVALUATION. PT STS THAT SHE RAN OUT OF DIURETICS OVER TWO WEEKS AGO. O2 SATS ARE 92% ROOM AIR. PT DENIES N/CP. PT HAS AN EXTENSIVE REDDENED RASH UNDER BOTH BREASTS. PT HAS BILATERAL EDEMA BOTH LEGS AUDIBLE WHEEZING.
--- NOTE | 2020-04-24 12:07 | PCM.EKG ---
[facility] Test Date: 2020-04-24 Test Time: 12:01:17 Pat Name: JATIN CHAPA Department: Room: 339 Gender: F Windshield Technician: MIRIAM : 1940 Requested By: DANICA SOUTH Order Number: [id number] Reading MD: Cathy South Measurements Intervals [place] Rate: 71 P: 0 MT: 198 QRS: -63 QRSD: 91 T: 60 QT: 413 QTc: 449 Interpretive Statements Sinus rhythm Left anterior fascicular block Consider anterior infarct Compared to ECG 04/18/2020 20:24:50 Accelerated junctional rhythm no longer present Myocardial infarct finding still present Electronically Signed On 04-25-2020 6:55:56 DEVELOPMENT EDITOR by Cathy South Please click the below link to view image of tracing.
--- NOTE | 2020-04-24 12:15 | NUR ---
IV OBTAINED BLOOD WORK SENT TO LAB 20G IV PLACED LAC NO SWELLING NOTED. XRAY AND EKG BEDSIDE
[2020-04-24 12:16] LABS: BASOPHIL % 0.4 % (0.0-0.2); EOSINOPHIL # 0.1 10^3/uL (0.0-0.2); EOSINOPHIL % 1.1 % (0.0-5.0); LYMPHOCYTES # 1.45 10^3/uL1 (1.0-4.8); LYMPHOCYTES % 18.5 % (24.0-44.0); MEAN CORP HGB 28.1 pg (26-34); MONOCYTES # 0.6 10^3/uL (0.3-0.8); MONOCYTES % 7.8 % (5.0-12.0); NEUTROPHIL # 5.7 10^3/uL (1.8-7.7); NEUTROPHILS % 72.1 % (41.0-85.0); PLATELET COUNT 211 10^3/uL (150-400); RED CELL DISTRIBUTION WIDTH 13.8 % (11.5-14.5)
[2020-04-24 12:22] VITALS: BP 176/76
--- NOTE | 2020-04-24 12:23 | ER.PDOC ---
General Chief Complaint: Requesting Medical Care Stated Complaint: SOB/LOW OXYGEN Time seen by MD: 12:17 Source: patient Exam Limitations: no limitations History of Present Illness Initial Comments patient c/o gradually progressive dyspnea x 3 days; she has been out of her medications x 2 weeks; denies CP Timing/Duration: constant, increasing (x 3 days) Severity: moderate Activities at Onset: activity/exertion Associated Symptoms: denies symptoms Prior symptoms/Treatment: Similar symptoms previous Allergies: Coded Allergies: Penicillins (Verified Allergy, Unknown, unknown, 06/13/19) codeine (Verified Allergy, Unknown, 06/13/19) morphine (Verified Allergy, Unknown, 06/13/19) Home Meds Reported Medications Insulin Degludec (Tresiba) 100 Unit/Ml Vial, 40 UNITS SQ BID 04/18/20 Furosemide (FUROSEMIDE) 20 Mg Tablet, 20 MG PO DAILY24, TAB 04/18/20 Fluticasone/Vilanterol (Breo Ellipta 100-25 Mcg INH) 1 Each Aer.pow.ba, 1 EACH IH DAILY24, PKG 04/18/20 Bumetanide (BUMETANIDE) 1 Mg Tablet, 1 MG PO AM, TAB 04/18/20 Sertraline Hcl (SERTRALINE HCL) 50 Mg Tablet, 50 MG PO DAILY24, TAB 03/04/20 Ascorbic Acid (VITAMIN C) 500 Mg Capsule.er, 1 CAP PO DAILY24 for 30 Days, #30 CAP 0 Refills 06/13/19 Montelukast Sodium (MONTELUKAST SODIUM) 10 Mg Tablet, 1 TAB PO HS, #30 TAB 5 Refills 06/13/19 Apixaban (Eliquis) 5 Mg Tablet, 5 MG PO BID, TABLET 06/13/19 Cholecalciferol (Vitamin D3) (VITAMIN D3) 3,000 Unit Tablet, 1000 UNIT PO DAILY24, TAB 06/13/19 Insulin Lispro (HUMALOG) 100 Unit/1 Ml Vial, 100 UNIT SQ ACHS, VIAL SLIDING SCALE BS 201-250= 2 UNITS BS 251-300= 4 UNITS BS 301-350= 6 UNITS BS 351-400= 8 UNITS IF BS IS GREATER THAN 401 CALL MD/ARCHITECTURAL DRAFTER/PA 05/02/14 Solifenacin Succinate (VESICARE) 5 Mg Tablet, 5 MG PO DAILY, TABLET 05/02/14 Aripiprazole (ABILIFY) 5 Mg Tablet, 5 MG PO DAILY 05/30/13 Atorvastatin Calcium (ATORVASTATIN CALCIUM) 40 Mg Tablet, 40 MG PO HS 05/30/13 Gabapentin (GABAPENTIN) 400 Mg Capsule, 400 MG PO HS 05/30/13 Discontinued Reported Medications Omeprazole (OMEPRAZOLE) 40 Mg Capsule.dr, 1 CAP PO DAILY, #30 CAP 3 Refills 06/13/19 Miconazole Nitrate (Monistat 7) 45 Gm Cream.appl, 1 APPLICATOR VG HS for 7 Days, #45 GRAM 0 Refills 06/13/19 Past Medical History Medical History: congestive heart failure, COPD, diabetes, heart attack, renal disease Surgical History: appendectomy, cholecystectomy, hysterectomy, other Family History Significant Family History: no pertinent family hx Social History Smoking: non-smoker Alcohol Use: none Drug Use: none Review of Systems Constitutional: denies no symptoms reported, denies see HPI, denies chills, denies diaphoresis, denies fever, denies malaise, denies weakness, denies other EENTM: denies no symptoms reported, denies see HPI, denies eye pain, denies blurred vision, denies tearing, denies double vision, denies ear pain, denies ear discharge, denies nose pain, denies nose congestion, denies throat pain, denies throat swelling, denies mouth pain, denies mouth swelling, denies other Respiratory: shortness of breath (with exertion) Cardiovascular: denies no symptoms reported, denies see HPI, denies chest pain, denies edema, denies palpitations, denies syncope, denies other Gastrointestinal: denies no symptoms reported, denies see HPI, denies abdominal pain, denies constipation, denies diarrhea, denies nausea, denies vomiting, denies other Genitourinary: denies no symptoms reported, denies see HPI, denies discharge, denies dysuria, denies frequency, denies hematuria, denies pain, denies other Musculoskeletal: denies no symptoms reported, denies see HPI, denies back pain, denies gout, denies joint pain, denies joint swelling, denies muscle pain, denies muscle stiffness, denies neck pain, denies other Skin: denies no symptoms reported, denies see HPI, denies change in color, denies change in hair/nails, denies dryness, denies lesions, denies lumps, denies rash, denies other All Other Systems: Reviewed and Negative Physical Exam General Appearance: No Apparent Distress, Obese HEENT: PERRL/EOMI, Normal ENT Inspection Neck: Non-Tender, Full Range of Motion, Supple, Normal Inspection Respiratory: lungs clear, normal breath sounds, no respiratory distress, no accessory muscle use Cardiovascular: Regular Rate, Rhythm, No Murmur Gastrointestinal: Normal Bowel Sounds, Non Tender, Soft Extremities: Non-Tender, No Pedal Edema, No Calf Tenderness Neurologic/Psychiatric: Alert, Normal Mood/Affect, Oriented x 3 Skin: Normal Color, Warm/Dry Results/Orders Results/Orders Orders - DANICA SOUTH DO Cbc With Auto Diff (04/24/20 11:53) Comprehensive Metabolic Panel (04/24/20 11:53) Creatine Kinase (04/24/20 11:53) Creatine Kinase Mb (04/24/20 11:53) Troponin I (04/24/20 11:53) Probnp B-Type Aircraft Engine Assembler (04/24/20 11:53) PT (04/24/20 11:53) Partial Thromboplastin Time. (04/24/20 11:53) Helicobacter Pylori (04/24/20 11:53) D-Dimer (04/24/20 11:53) Xr Chest 1v (04/24/20 11:53) Ekg-Routine (04/24/20 11:53) Saline Lock (04/24/20 11:53) Enoxaparin Sodium (Lovenox) (04/24/20 13:03) Covid19 Antigen Mar Caitlyn (04/24/20 13:06) Vital Signs Date Time Temp Pulse Resp B/P (MAP) Pulse Ox O2 Delivery O2 Flow Rate FiO2 04/24/20 12:22 98.4 113 18 04/24/20 12:22 98.4 113 18 Laboratory Tests Test 04/24/20 12:09 White Blood Count 7.8 10^3/uL (4.5-11.0) Red Blood Count 3.31 10^6/uL (4.00-5.20) L Hemoglobin 9.3 g/dL (12.0-15.0) L Hematocrit 30.0 % (36.0-46.0) L Mean Corpuscular Volume 90.6 fL (78-100) Mean Corpuscular Hemoglobin 28.1 pg (26-34) Mean Corpuscular Hemoglobin Concent 31.0 g/dL (33-36.5) L Red Cell Distribution Width 13.8 % (11.5-14.5) Platelet Count 211 10^3/uL (150-400) Mean Platelet Volume 9.8 fL (7.8-11.0) Neutrophils (%) (Auto) 72.1 % (41.0-85.0) Lymphocytes (%) (Auto) 18.5 % (24.0-44.0) L Monocytes (%) (Auto) 7.8 % (5.0-12.0) Neutrophils # (Auto) 5.7 10^3/uL (1.8-7.7) Lymphocytes # (Auto) 1.45 10^3/uL1 (1.0-4.8) Monocytes # (Auto) 0.6 10^3/uL (0.3-0.8) Absolute Immature Granulocyte (auto 0.01 10^3 u/L (0-2) Absolute Eosinophils (auto) 0.1 10^3/uL (0.0-0.2) Immature Granulocytes % 0.10 % (0.00-0.50) Eosinophils % 1.1 % (0.0-5.0) Basophils % 0.4 % (0.0-0.2) H Basophils # 0.0 10^3/uL (0.0-0.1) Prothrombin Time 12.1 SEC (9.3-11.3) H Prothrombin Time INR (Non-Therap) 1.2 Activated Partial Thromboplast Time 26.9 SEC (24.67-30.72) D-Dimer 2.15 mg/L (0.19-0.49) *H Sodium Level 141 mmol/L (132-145) Potassium Level 3.4 mmol/L (3.6-5.2) L Chloride Level 102.0 mmol/L (96-109) Carbon Dioxide Level 27.1 mmol/L (20.0-32) Anion Gap 15.3 Blood Urea Nitrogen 20 mg/dL (7-18) H Creatinine 1.42 mg/dL (0.59-1.40) H Estimated GFR () 43.1 (>/=60) Est GFR (CKD-EPI)(Non-Afr Prydeinig) 35.6 (>/=60) BUN/Creatinine Ratio 14.0 Glucose Level 72 mg/dL (70-110) Calcium Level 9.0 mg/dL (8.4-10.5) Total Bilirubin 0.4 mg/dL (0.2-1.0) Aspartate Amino Transferase (AST) 28 U/L (0-35) Alanine Aminotransferase (ALT) 21 U/L (12-78) Alkaline Phosphatase 211 U/L (50-136) H Total Creatine Kinase 33 U/L (26-192) Creatine Kinase MB < 0.5 ng/mL (0.5-3.6) L Troponin I < 0.02 ng/mL (0.00-0.05) Pro-B-Type Natriuretic Peptide 2582 pg/mL (0-450) H Total Protein 7.4 g/dL (6.4-8.2) Albumin 2.7 g/dL (3.4-5.0) L Globulin 4.7 Albumin/Globulin Ratio 0.574 Helicobacter pylori Screen POSITIVE (NEGATIVE) EKG/XRAY/CT/US EKG Comments: sinus rhythm, VR 71, no acute STT changes XRAY: chest (cardiomegaly) Consult/PCP Time Consult/PCP Called: 13:08 Consult/PCP: Dr. Kilgore Reason/Comments: admit [facility] ER DEPART Departure Time of Disposition: 13:09 Disposition: 09 ADMITTED INPATIENT Impression: Primary Impression: Dyspnea Additional Impressions: D-dimer, elevated Renal insufficiency Helicobacter positive gastritis Condition: Stable Referrals: KONG BINGHAM ARCHITECTURAL DRAFTER (PCP) PRIMARY CARE PROVIDER Duration or Time Spent with Pa: 20 min Problem Qualifiers Primary Impression: Dyspnea Dyspnea type: dyspnea on exertion Qualified Codes: R06.00 - Dyspnea, unspecified DANICA SOUTH DO Apr 24, 2020 12:23
--- NOTE | 2020-04-24 12:34 | DIREP ---
PROCEDURE:CHEST 1 VIEW COMPARISON:[facility], CR, XRAY CHEST SINGLE VW, 04/18/2020, 08:23 PM. [facility], CR, XRAY CHEST 2 VWS, 04/09/2020, 08:51 AM. [facility], CR, XRAY CHEST 2 VWS, 04/01/2020, 09:32 AM. INDICATIONS:dyspnea 2 FILMS FINDINGS:AP high and low centered images are obtained. LUNGS/PLEURA:No significant pulmonary parenchymal abnormalities. No effusions. VASCULATURE:The pulmonary vasculature is normal. CARDIAC:The heart is borderline enlarged. Median sternotomy wires and atrial appendage exclusion device noted. MEDIASTINUM:Normal. No visible mass or adenopathy. BONES:There is mild degenerative change of both shoulders. OTHER:Negative. CONCLUSION:No active pulmonary disease. Borderline cardiomegaly. No significant change. Dictated by: James Almazan MD on 04/24/2020 at 12:32 PM
[2020-04-24 12:53] LABS: ALANINE AMINOTRANSFERASE(ML) 21 U/L (12-78); ALKALINE PHOSPHATASE 211 U/L (50-136); ASPARTATE AMINO TRANSFERASE 28 U/L (0-35); CARBON DIOXIDE 27.1 mmol/L (20.0-32); GLUCOSE 72 mg/dL (70-110)
--- NOTE | 2020-04-24 13:04 | NUR ---
LOVENOX NOT GIVEN PT HAS TAKEN HER ELIQUIS
--- NOTE | 2020-04-24 13:15 | NUR ---
PT HAS A NEGATIVE COVID TEST FROM 4 DAYS AGO
--- NOTE | 2020-04-24 13:21 | NUR ---
PT ADMITTED TO DR. ARTHUR.
[2020-04-24] MEDS: LOVENOX SQ STA ×2 (13:24→13:37)
--- NOTE | 2020-04-24 13:27 | NUR ---
CALLED 3RD FLOOR SPOKE WITH MANDEEP BED 339 ASSIGNED PER MANDEEP PT CAN COME RIGHT UPSTAIRS AFTER TRANSPORT PAPERS ARE READY
[2020-04-24] MEDS ORDERED: LOVENOX SQ ONE (13:34)
--- NOTE | 2020-04-24 13:54 | NUR ---
PT IN OWN W/C TRANSPORTING TO 339 SBAR COMPLETED AND WITH CHART
[2020-04-24] MEDS ORDERED: DEXTROSE 50%-WATER SYRINGE IV PRN (14:00)
[2020-04-24] MEDS ORDERED: VENTOLIN IH PRN (14:00)
[2020-04-24] MEDS ORDERED: LANTUS SQ SCH (14:00)
--- NOTE | 2020-04-24 14:12 | NUR ---
ARRIVAL PT ARRIVED TO ROOM 339 VIA W/C, NO S/S OF DISTRESS NOTED. REPORT RECEIVED FROM SANTO COFFEY. PT ASSISTED INT BED. BED LOCKED AND LOW POSITION. CALL LIGHT WITHIN REACH.
--- NOTE | 2020-04-24 14:12 | NUR ---
pt transported report given to anitha moise
--- NOTE | 2020-04-24 14:54 | PCM.HP ---
History of Present Illness Hx of Present Illness 79-year-old female. Medical history includes depression, aortic valve replacement, hyperlipidemia, diabetes mellitus type 2 insulin-dependent, overactive bladder, CHF, COPD, diabetic neuropathy, on Eliquis. Patient with allergies codeine and morphine upset her stomach and penicillin precipitates a rash. Patient describes seeking medical attention after having increased dyspnea and shortness of breath with exertion. Patient describes her symptoms ongoing for over the past month but has progressively gotten worse over the past 3 to 4 days. Patient describes being out of her Lasix for 2weeks. We will continue to diurese and treat COPD. CXR did not reveal any acute abnormalities with lungs no infiltrates or consolidations noted. Elevated D-dimer of 2 will obtain VQ scan however patient is on Eliquis 5 mg twice daily. Patient utilizing 2 L nasal cannula wishes to remain a full code.Patient also tested positive for H. pylori will initiate triple therapy. Travel History EBOLA RISK:Travel to/contact w: No Is pt experiencing any Ebola s: No Review of Systems Constitutional: denies no symptoms reported, denies see HPI, denies chills, denies diaphoresis, denies fever, denies malaise, denies weakness, denies other EENTM: denies no symptoms reported, denies see HPI, denies eye pain, denies blurred vision, denies tearing, denies double vision, denies ear pain, denies ear discharge, denies nose pain, denies nose congestion, denies throat pain, denies throat swelling, denies mouth pain, denies mouth swelling, denies other Respiratory: denies no symptoms reported; see HPI; denies cough; orthopnea, shortness of breath; denies stridor, denies wheezing, denies other Cardiovascular: denies no symptoms reported, denies see HPI, denies chest pain; edema; denies palpitations, denies syncope, denies other Gastrointestinal: denies no symptoms reported, denies see HPI, denies abdominal pain, denies constipation, denies diarrhea, denies nausea, denies vomiting, denies other Genitourinary: denies no symptoms reported, denies see HPI, denies discharge, denies dysuria, denies frequency, denies hematuria, denies pain, denies other Musculoskeletal: denies no symptoms reported, denies see HPI, denies back pain, denies gout, denies joint pain, denies joint swelling, denies muscle pain, denies muscle stiffness, denies neck pain, denies other Skin: denies no symptoms reported, denies see HPI, denies change in color, denies change in hair/nails, denies dryness, denies lesions, denies lumps, denies rash, denies other Psychiatric/Neurological: denies no symptoms reported, denies see HPI, denies anxiety, denies depressed, denies emotional problems, denies headache, denies numbness, denies paresthesia, denies pre-existing deficit, denies seizure, denies tingling, denies tremors, denies weakness, denies other Endocrine: denies no symptoms reported, denies see HPI, denies excessive sweating, denies flushing, denies intolerance to cold, denies intolerance to heat, denies increased hunger, denies increased thrist, denies increased urine, denies unexplained weight gain, denies unexplaned weight loss, denies other Hematologic/Lymphatic: denies no symptoms reported, denies see HPI, denies anemia, denies blood clots, denies easy bleeding, denies easy bruising, denies swollen glands, denies other All Other Systems: Reviewed and Negative Review of Systems Constitutional: Malaise; No: Fever, Chills, Sweats, Weakness, Other Eyes: No: Pain, Vision change, Conjunctivae inflammation, Eyelid inflammation, Other, Redness ENT: No: Ear pain, Ear discharge, Nose pain, Nose discharge, Nose congestion, Mouth pain, Mouth swelling, Throat pain, Throat swelling, Other Respiratory: Shortness of breath, SOB with excertion; No: Cough, Dry, Wheezing, Hemoptysis, Pleuritic Pain, Sputum, Wheezing, Other Cardiovascular: Orthopnea, Edema (3-4+ BLE); No: Chest Pain, Palpitations, Paroxysmal Noc. Dyspnea, Lt Headedness, Other Gastrointestinal: No: Nausea, Vomiting, Abdominal Pain, Diarrhea, Constipation, Melena, Hematochezia, Other Genitourinary: No Dysuria; Frequency; No Incontinence, No Hematuria, No Retention, No Other Musculoskeletal: No: other, neck pain, shoulder pain, arm pain, back pain, hand pain, leg pain, foot pain Skin: Bruising; No: Rash, Lesions, Jaundice, Other Neurological: Other (Utilizes a wheelchair); No: Weakness, Numbness, Incoordination, Change in speech, Confusion, Seizures Allergies: Coded Allergies: Penicillins (Verified Allergy, Unknown, unknown, 06/13/19) codeine (Verified Allergy, Unknown, 06/13/19) morphine (Verified Allergy, Unknown, 06/13/19) Scheduled Apixaban (Eliquis), 5 MG PO BID, (Reported) Aripiprazole (Abilify), 5 MG PO DAILY, (Reported) Ascorbic Acid (Vitamin C), 1 CAP PO DAILY24, (Reported) Atorvastatin Calcium (Atorvastatin Calcium), 40 MG PO HS, (Reported) Bumetanide (Bumetanide), 1 MG PO AM, (Reported) Cholecalciferol (Vitamin D3) (Vitamin D3), 1,000 UNIT PO DAILY24, (Reported) Fluticasone/Vilanterol (Breo Ellipta 100-25 Mcg INH), 1 EACH IH DAILY24, (Reported) Furosemide (Furosemide), 20 MG PO DAILY24, (Reported) Gabapentin (Gabapentin), 400 MG PO HS, (Reported) Insulin Degludec (Tresiba), 40 UNITS SQ BID, (Reported) Insulin Lispro (Humalog), 100 UNIT SQ ACHS, (Reported) Montelukast Sodium (Montelukast Sodium), 1 TAB PO HS, (Reported) Sertraline Hcl (Sertraline Hcl), 50 MG PO DAILY24, (Reported) Solifenacin Succinate (Vesicare), 5 MG PO DAILY, (Reported) Discontinued Medications Miconazole Nitrate (Monistat 7), 1 APPLICATOR VG HS, (Reported) Discontinued Reason: No Longer Taking Omeprazole (Omeprazole), 1 CAP PO DAILY, (Reported) Discontinued Reason: No Longer Taking VTE VTE Risk Total Score: >5 VTE Risk Score VTE Risk: Score 0-1 = Low Risk (Aggressive mobilization; early ambulation; no VTE prophylaxis required) Score 2: Moderate Risk (Intermittent/Pneumatic Compression Device OR Lovenox/Heparin/Coumadin) Score 3-4: High Risk (Intermittent/Pneumatic Compression Device AND Lovenox/Heparin/Coumadin) Score > or =5: Highest Risk (Intermittent/Pneumatic Compression Device AND Lovenox/Heparin/Coumadin) VTE Treatment Patient Eliquis Antico:Hep/LMWH/Coum/Xarelto: Yes Mechanical device ordered: No VTE VTE Present on Admission: No Currently receiving anticoagul: No VTE Risk Total Score: >5 Antico:Hep/LMWH/Coum/Xarelto: Yes Mechanical device ordered: No Exam Vital Signs Vital Signs Date Time Temp Pulse Resp B/P (MAP) Pulse Ox O2 Delivery O2 Flow Rate FiO2 04/24/20 12:22 98.4 113 18 General Appearance: Alert, Oriented X3, Cooperative, No acute distress HEENT: Atraumatic, EOMI Respiratory: Other (Therapy with diminished bases) Cardiovascular: Regular rate, Normal S1, Normal S2 Abdominal: Normal bowel sounds, Soft, No tenderness Extremities: No clubbing, No cyanosis, Other (3-4+ pitting edema BLE) Skin: No rash, No breakdown, No lesions Neuro: Normal speech, Other (Utilizes wheelchair) Psych/Mental Status: Mental status NL, Mood NL Assessment/Plan Assessment/Plan Assessment/Plan 79-year-old female. Medical history includes depression, aortic valve replacement, hyperlipidemia, diabetes mellitus type 2 insulin-dependent, overactive bladder, CHF, COPD, diabetic neuropathy, on Eliquis. Patient with allergies codeine and morphine upset her stomach and penicillin precipitates a rash. Patient describes seeking medical attention after having increased dyspnea and shortness of breath with exertion. Patient describes her symptoms ongoing for over the past month but has progressively gotten worse over the past 3 to 4 days. Patient describes being out of her Lasix for 2weeks. We will continue to diurese and treat COPD. CXR did not reveal any acute abnormalities with lungs no infiltrates or consolidations noted. Elevated D-dimer of 2 will obtain VQ scan however patient is on Eliquis 5 mg twice daily. Patient utilizing 2 L nasal cannula wishes to remain a full code.Patient also tested positive for H. pylori will initiate triple therapy. Patient History: Alzheimer's disease 32 MOTHER, , Age:92 G8 BROTHER, , Age:64 G8 SISTER, , Age:63 Asthma 19 CHILD, Age:57 Chronic obstructive pulmonary disease G8 SISTER, , Age:63 Congestive heart failure 32 MOTHER, , Age:92 33 FATHER, , Age:61 G8 BROTHER, , Age:64 G8 SISTER, , Age:63 19 CHILD, , Age:40 Diabetes mellitus G8 SISTER, , Age:63 19 CHILD, Age:54 FH: bipolar disorder 32 MOTHER, , Age:92 FH: heart disease 32 MOTHER, , Age:92 33 FATHER, , Age:61 G8 BROTHER, , Age:64 G8 SISTER, , Age:63 19 CHILD, , Age:48 19 CHILD, , Age:40 19 CHILD, Age:57 FH: ovarian cancer 19 CHILD, Age:57 FH: schizophrenia 32 MOTHER, , Age:92 FH: uterine cancer 19 CHILD, Age:57 Hypertension G8 SISTER, , Age:63 19 CHILD, Age:57 No known health problems G8 BROTHER, , Age:33 G8 SISTER No Family History of: Cerebrovascular disorder Diabetes insipidus Parkinson's disease Plan CHF exacerbation/fluid overload Previous echocardiogram completed by Dr. Donahue in May 2019 revealed left ventricular systolic function is normal, EF of 60% with mild mitral regurgitation and mild to moderate tricuspid regurgitation. Patient describes having a pig valve and aortic valve replacement on Eliquis 5 mg twice daily Patient utilizing Bumex and Lasix daily has been out of her Lasix for over 2 weeks will initiate diuresis 2 g sodium diet Fluid restriction 1200 mL per 24 hours Daily weights I and O COPD Supplemental oxygen available as necessary Combivent and albuterol as needed Singulair Doxycycline H. pylori positive Clarithromycin Metronidazole PPI-Protonix Hypokalemia Continue to monitor electrolytes and replete with p.o. Diabetes mellitus type 2 insulin-dependent Patient utilizes Tresbia LA insulin at home will Transition to Lantus with a lower dose Humalog sliding scale Accu-Chek AC at bedtime GERD Protonix Depression Sertraline History of Pig valve-aortic Continue Eliquis therapy Patient wishes to remain a full code DVT prophylaxis patient on Eliquis PPI PPx: Protonix SCOTTY ZELAYA NP Apr 24, 2020 14:54
[2020-04-24] MEDS: BIAXIN PO SCH ×2 (15:00→23:00)
[2020-04-24] MEDS ORDERED: KLOR-CON 10 PO ONE ×2 (15:30→16:57)
[2020-04-24] MEDS ORDERED: MAGNESIUM-D5W 1 GM/100 ML SOLN 100 ML IV ONE (15:30)
[2020-04-24 17:18] VITALS: BP_SYST 147; BP_SYST 99; BP_DIAS 53; BP_DIAS 57
[2020-04-24] MEDS: VIBRAMYCIN PO SCH ×2 (17:25→23:00)
[2020-04-24] MEDS: FLAGYL PO SCH ×2 (17:27→23:00)
[2020-04-24] MEDS: HUMALOG SQ SCH (18:00)
[2020-04-24 19:35] VITALS: BP 138/67
[2020-04-24] MEDS ORDERED: COMBIVENT RESPIMAT 20-100 MCG IH ONE (20:34)
[2020-04-24] MEDS: LIPITOR PO SCH (20:51)
[2020-04-24] MEDS: ELIQUIS PO SCH (20:51)
[2020-04-24] MEDS: SINGULAIR PO SCH (20:51)
[2020-04-24] MEDS: NEURONTIN PO SCH (20:51)
[2020-04-24] MEDS: DITROPAN PO SCH (20:51)
[2020-04-25 00:19] VITALS: BP 127/62
[2020-04-25 04:33] VITALS: BP 133/59
[2020-04-25 05:25] LABS: BASOPHIL % 0.3 % (0.0-0.2); EOSINOPHIL # 0.1 10^3/uL (0.0-0.2); EOSINOPHIL % 2.3 % (0.0-5.0); LYMPHOCYTES % 16.8 % (24.0-44.0); MEAN CORP HGB 28.7 pg (26-34); MONOCYTES # 0.5 10^3/uL (0.3-0.8); NEUTROPHIL # 4.3 10^3/uL (1.8-7.7); NEUTROPHILS % 72.3 % (41.0-85.0); PLATELET COUNT 204 10^3/uL (150-400); RED CELL DISTRIBUTION WIDTH 13.8 % (11.5-14.5)
[2020-04-25] MEDS: COMBIVENT RESPIMAT 20-100 MCG IH SCH ×3 (05:35→21:26)
[2020-04-25 05:57] LABS: CALCIUM 9.1 mg/dL (8.4-10.5)
[2020-04-25] MEDS ORDERED: MAGNESIUM-D5W 1 GM/100 ML SOLN 100 ML IV ONE (08:00)
[2020-04-25] MEDS: HUMALOG SQ SCH ×3 (08:00→18:00)
[2020-04-25] MEDS: ZOLOFT PO SCH (08:15)
[2020-04-25] MEDS: FLAGYL PO SCH ×2 (08:16→20:16)
[2020-04-25] MEDS: NEURONTIN PO SCH ×2 (08:16→20:16)
[2020-04-25] MEDS: PROTONIX PO SCH (08:16)
[2020-04-25] MEDS: VIBRAMYCIN PO SCH ×2 (08:16→20:17)
[2020-04-25] MEDS: DITROPAN PO SCH ×2 (08:16→20:17)
[2020-04-25] MEDS: ELIQUIS PO SCH ×2 (08:16→20:16)
[2020-04-25 08:29] VITALS: BP 129/52
[2020-04-25] MEDS: BUMEX IV SCH (08:32)
[2020-04-25] MEDS: BIAXIN PO SCH ×2 (08:34→20:15)
[2020-04-25] MEDS: ABILIFY PO SCH (08:37)
[2020-04-25] MEDS: LANTUS SQ SCH (09:00)
[2020-04-25] MEDS: MAG-OX PO SCH ×2 (09:00→20:16)
[2020-04-25] MEDS: LASIX IV SCH (09:00)
--- NOTE | 2020-04-25 10:31 | PRM.PN ---
Subjective Subjective Date: Apr 25, 2020 Time: 10:24 Subjective No acute events overnight, vital signs stable, VQ scan completed this a.m. Patient dyspnea has resolved Patient History: Alzheimer's disease 32 MOTHER, , Age:92 G8 BROTHER, , Age:64 G8 SISTER, , Age:63 Asthma 19 CHILD, Age:57 Chronic obstructive pulmonary disease G8 SISTER, , Age:63 Congestive heart failure 32 MOTHER, , Age:92 33 FATHER, , Age:61 G8 BROTHER, , Age:64 G8 SISTER, , Age:63 19 CHILD, , Age:40 Diabetes mellitus G8 SISTER, , Age:63 19 CHILD, Age:54 FH: bipolar disorder 32 MOTHER, , Age:92 FH: heart disease 32 MOTHER, , Age:92 33 FATHER, , Age:61 G8 BROTHER, , Age:64 G8 SISTER, , Age:63 19 CHILD, , Age:48 19 CHILD, , Age:40 19 CHILD, Age:57 FH: ovarian cancer 19 CHILD, Age:57 FH: schizophrenia 32 MOTHER, , Age:92 FH: uterine cancer 19 CHILD, Age:57 Hypertension G8 SISTER, , Age:63 19 CHILD, Age:57 No known health problems G8 BROTHER, , Age:33 G8 SISTER No Family History of: Cerebrovascular disorder Diabetes insipidus Parkinson's disease VTE VTE Risk Total Score: 5 VTE Risk Score VTE Risk: Score 0-1 = Low Risk (Aggressive mobilization; early ambulation; no VTE prophylaxis required) Score 2: Moderate Risk (Intermittent/Pneumatic Compression Device OR Lovenox/Heparin/Coumadin) Score 3-4: High Risk (Intermittent/Pneumatic Compression Device AND Lovenox/Heparin/Coumadin) Score > or =5: Highest Risk (Intermittent/Pneumatic Compression Device AND Lovenox/Heparin/Coumadin) Antico:Hep/LMWH/Coum/Xarelto: Yes Mechanical device ordered: No Review of Systems Constitutional: Malaise; No: Fever, Chills, Sweats, Weakness, Other Eyes: No: Pain, Vision change, Conjunctivae inflammation, Eyelid inflammation, Other, Redness ENT: No: Ear pain, Ear discharge, Nose pain, Nose discharge, Nose congestion, Mouth pain, Mouth swelling, Throat pain, Throat swelling, Other Respiratory: Cough, Shortness of breath, SOB with excertion, Sputum; No: Dry, Wheezing, Hemoptysis, Pleuritic Pain, Wheezing, Other Cardiovascular: Orthopnea, Edema (3-4+ BLE); No: Chest Pain, Palpitations, Paroxysmal Noc. Dyspnea, Lt Headedness, Other Gastrointestinal: No: Nausea, Vomiting, Abdominal Pain, Diarrhea, Constipation, Melena, Hematochezia, Other Genitourinary: No Dysuria; Frequency; No Incontinence, No Hematuria, No Retention, No Other Musculoskeletal: No: other, neck pain, shoulder pain, arm pain, back pain, hand pain, leg pain, foot pain Skin: Bruising; No: Rash, Lesions, Jaundice, Other Neurological: Other (Utilizes a wheelchair); No: Weakness, Numbness, Incoordination, Change in speech, Confusion, Seizures Allergies: Coded Allergies: Penicillins (Verified Allergy, Unknown, unknown, 06/13/19) codeine (Verified Allergy, Unknown, 06/13/19) morphine (Verified Allergy, Unknown, 06/13/19) Scheduled Apixaban (Eliquis), 5 MG PO BID, (Reported) Aripiprazole (Abilify), 5 MG PO DAILY, (Reported) Ascorbic Acid (Vitamin C), 1 CAP PO DAILY24, (Reported) Atorvastatin Calcium (Atorvastatin Calcium), 40 MG PO HS, (Reported) Bumetanide (Bumetanide), 1 MG PO AM, (Reported) Cholecalciferol (Vitamin D3) (Vitamin D3), 1,000 UNIT PO DAILY24, (Reported) Fluticasone/Vilanterol (Breo Ellipta 100-25 Mcg INH), 1 EACH IH DAILY24, (Reported) Furosemide (Furosemide), 20 MG PO DAILY24, (Reported) Gabapentin (Gabapentin), 400 MG PO HS, (Reported) Insulin Degludec (Tresiba), 40 UNITS SQ BID, (Reported) Insulin Lispro (Humalog), 100 UNIT SQ ACHS, (Reported) Montelukast Sodium (Montelukast Sodium), 1 TAB PO HS, (Reported) Sertraline Hcl (Sertraline Hcl), 50 MG PO DAILY24, (Reported) Solifenacin Succinate (Vesicare), 5 MG PO DAILY, (Reported) Discontinued Medications Miconazole Nitrate (Monistat 7), 1 APPLICATOR VG HS, (Reported) Discontinued Reason: No Longer Taking Omeprazole (Omeprazole), 1 CAP PO DAILY, (Reported) Discontinued Reason: No Longer Taking Objective Vitals and I/O Vital Sign - Last 24 Hours 04/25/20 04/25/20 04/25/20 08:29 08:32 09:00 Temp 99.0 Pulse 75 Resp 22 B/P (MAP) 129/52 (77) 129/52 144/69 Pulse Ox 92 General: Alert, Oriented X3, Cooperative, No acute distress HEENT: Atraumatic, PERRLA, EOMI Neck: Supple Lungs: Other (Rhonchi with diminished bases) Heart: Regular rate, Normal S1, Normal S2 Abdomen: Normal bowel sounds, Soft, No tenderness Extremities: No clubbing, No cyanosis, Other (3-4+ pitting edema BLE) Neuro: Normal speech, Other (Utilizes wheelchair) Psych/Mental Status: Mental status NL, Mood NL All Results(Lab/Rad) Laboratory Tests Test 04/24/20 12:09 04/24/20 16:36 04/24/20 17:04 04/24/20 18:03 White Blood Count 7.8 10^3/uL Red Blood Count 3.31 10^6/uL Hemoglobin 9.3 g/dL Hematocrit 30.0 % Mean Corpuscular Volume 90.6 fL Mean Corpuscular Hemoglobin 28.1 pg Mean Corpuscular Hemoglobin Concent 31.0 g/dL Red Cell Distribution Width 13.8 % Platelet Count 211 10^3/uL Mean Platelet Volume 9.8 fL Neutrophils (%) (Auto) 72.1 % Lymphocytes (%) (Auto) 18.5 % Monocytes (%) (Auto) 7.8 % Neutrophils # (Auto) 5.7 10^3/uL Lymphocytes # (Auto) 1.45 10^3/uL1 Monocytes # (Auto) 0.6 10^3/uL Absolute Immature Granulocyte (auto 0.01 10^3 u/L Absolute Eosinophils (auto) 0.1 10^3/uL Immature Granulocytes % 0.10 % Eosinophils % 1.1 % Basophils % 0.4 % Basophils # 0.0 10^3/uL Prothrombin Time 12.1 SEC Prothrombin Time INR (Non-Therap) 1.2 Activated Partial Thromboplast Time 26.9 SEC D-Dimer 2.15 mg/L Sodium Level 141 mmol/L Potassium Level 3.4 mmol/L Chloride Level 102.0 mmol/L Carbon Dioxide Level 27.1 mmol/L Anion Gap 15.3 Blood Urea Nitrogen 20 mg/dL Creatinine 1.42 mg/dL Estimated GFR () 43.1 Est GFR (CKD-EPI)(Non-Afr Guyanese) 35.6 BUN/Creatinine Ratio 14.0 Glucose Level 72 mg/dL Calcium Level 9.0 mg/dL Magnesium Level 1.6 mg/dL Total Bilirubin 0.4 mg/dL Aspartate Amino Transf (AST/SGOT) 28 U/L Alanine Aminotransferase (ALT/SGPT) 21 U/L Alkaline Phosphatase 211 U/L Total Creatine Kinase 33 U/L Creatine Kinase MB < 0.5 ng/mL Troponin I < 0.02 ng/mL Pro-B-Type Natriuretic Peptide 2582 pg/mL Total Protein 7.4 g/dL Albumin 2.7 g/dL Globulin 4.7 Albumin/Globulin Ratio 0.574 Helicobacter pylori Screen POSITIVE Bedside Glucose 54 71 113 Test 04/25/20 04:42 04/25/20 07:18 White Blood Count 6.0 10^3/uL Red Blood Count 2.89 10^6/uL Hemoglobin 8.3 g/dL Hematocrit 26.0 % Mean Corpuscular Volume 90.0 fL Mean Corpuscular Hemoglobin 28.7 pg Mean Corpuscular Hemoglobin Concent 31.9 g/dL Red Cell Distribution Width 13.8 % Platelet Count 204 10^3/uL Mean Platelet Volume 10.3 fL Neutrophils (%) (Auto) 72.3 % Lymphocytes (%) (Auto) 16.8 % Monocytes (%) (Auto) 8.0 % Neutrophils # (Auto) 4.3 10^3/uL Lymphocytes # (Auto) 1.00 10^3/uL1 Monocytes # (Auto) 0.5 10^3/uL Absolute Immature Granulocyte (auto 0.02 10^3 u/L Absolute Eosinophils (auto) 0.1 10^3/uL Immature Granulocytes % 0.30 % Eosinophils % 2.3 % Basophils % 0.3 % Basophils # 0.0 10^3/uL Sodium Level 140 mmol/L Potassium Level 3.9 mmol/L Chloride Level 106.0 mmol/L Carbon Dioxide Level 28.0 mmol/L Anion Gap 9.9 Blood Urea Nitrogen 20 mg/dL Creatinine 1.42 mg/dL Estimated GFR () 43.1 Est GFR (CKD-EPI)(Non-Afr Guyanese) 35.6 BUN/Creatinine Ratio 14.0 Glucose Level 98 mg/dL Calcium Level 9.1 mg/dL Magnesium Level 1.7 mg/dL Total Bilirubin 0.6 mg/dL Aspartate Amino Transf (AST/SGOT) 31 U/L Alanine Aminotransferase (ALT/SGPT) 22 U/L Alkaline Phosphatase 200 U/L Total Protein 6.4 g/dL Albumin 2.3 g/dL Globulin 4.1 Albumin/Globulin Ratio 0.560 Bedside Glucose 84 Current Medications Medications (Trade) Dose Ordered Sig/Teresa Route PRN Reason Start Time Stop Time Status Last Admin Dose Admin Enoxaparin Sodium (Lovenox) 100 mg STAT STAT SQ 04/24/20 13:03 04/24/20 14:21 DC Furosemide (Lasix) 40 mg DAILY IV 04/25/20 09:00 05/25/20 08:59 04/25/20 09:00 Enoxaparin Sodium (Lovenox) 100 mg STK-MED ONCE SQ 04/24/20 13:34 04/24/20 13:34 DC Albuterol Sulfate (Ventolin) 2.5 mg RTQ4 PRN IH WHEEZING 04/24/20 14:00 05/24/20 13:59 Albuterol/ Ipratropium (Combivent Respimat 20-100 Mcg) 1 inh RTQ6H IH 04/24/20 14:00 05/24/20 13:59 04/25/20 05:35 Doxycycline Hyclate (Vibramycin) 100 mg BID PO 04/24/20 15:00 05/24/20 14:59 04/25/20 08:16 Sertraline HCl (Zoloft) 50 mg DAILY PO 04/25/20 09:00 05/25/20 08:59 04/25/20 08:15 Atorvastatin Calcium (Lipitor) 40 mg HS PO 04/24/20 21:00 05/24/20 20:59 04/24/20 20:51 Gabapentin (Neurontin) 400 mg BID PO 04/24/20 21:00 05/24/20 20:59 04/25/20 08:16 Oxybutynin Chloride (Ditropan) 5 mg BID PO 04/24/20 21:00 05/24/20 20:59 04/25/20 08:16 Montelukast Sodium (Singulair) 10 mg HS PO 04/24/20 21:00 05/24/20 20:59 04/24/20 20:51 Bumetanide (Bumex) 1 mg DAILY IV 04/25/20 09:00 05/25/20 08:59 04/25/20 08:32 Potassium Chloride (Klor-Con 10) 20 meq OT ONCE PO 04/24/20 15:30 04/24/20 15:31 DC 04/24/20 17:26 Insulin Human Lispro (Humalog) Humalog. Give when food is... TIDM SQ 04/24/20 18:00 05/24/20 17:59 Dextrose (Dextrose 50%-Water Syringe) 25 ml STAT PRN IV HYPOGLYCEMIA 04/24/20 14:00 05/24/20 13:59 Aripiprazole (Abilify) 5 mg DAILY PO 04/25/20 09:00 05/25/20 08:59 04/25/20 08:37 Insulin Glargine (Lantus) 20 unit DAILY SQ 04/25/20 09:00 05/25/20 08:59 04/25/20 09:00 Insulin Glargine (Lantus) 20 unit AM SQ 04/24/20 14:00 04/24/20 15:24 DC Clarithromycin (Biaxin) 250 mg BID PO 04/24/20 15:00 05/24/20 14:59 04/25/20 08:34 Metronidazole (Flagyl) 500 mg BID PO 04/24/20 15:00 05/24/20 14:59 04/25/20 08:16 Pantoprazole Sodium (Protonix) 40 mg DAILY PO 04/25/20 09:00 05/25/20 08:59 04/25/20 08:16 Magnesium Sulfate/ Dextrose 100 ml @ 100 mls/hr OT ONCE IV 04/24/20 15:30 04/24/20 16:30 DC 04/24/20 15:30 Potassium Chloride (Klor-Con 10) 10 meq STK-MED ONCE PO 04/24/20 16:57 04/24/20 16:58 DC Albuterol/ Ipratropium (Combivent Respimat 20-100 Mcg) 120 inh STK-MED ONCE IH 04/24/20 20:34 04/24/20 20:35 DC Magnesium Sulfate/ Dextrose 100 ml @ 100 mls/hr OT ONCE IV 04/25/20 08:00 04/25/20 08:59 DC 04/25/20 09:22 Magnesium Oxide (Mag-Ox) 400 mg BID PO 04/25/20 09:00 05/25/20 08:59 Nystatin (Nystop) 1 gm DAILY TP 04/26/20 09:00 05/26/20 08:59 UNV Guaifenesin (Mucinex) 600 mg BID PO 04/25/20 10:30 05/25/20 10:29 UNV Course Sepsis Screening Results: Posi: NEGATIVE Sepsis Qualifier/Stage: NO DEFINITE RISK Duration or Total Time Spent w: 20 min Vitals & review Data Vital Sign - Last 24 Hours 04/25/20 04/25/20 04/25/20 08:29 08:32 09:00 Temp 99.0 Pulse 75 Resp 22 B/P (MAP) 129/52 (77) 129/52 144/69 Pulse Ox 92 Laboratory Tests Test 04/24/20 12:09 04/24/20 16:36 04/24/20 17:04 04/24/20 18:03 White Blood Count 7.8 10^3/uL Red Blood Count 3.31 10^6/uL Hemoglobin 9.3 g/dL Hematocrit 30.0 % Mean Corpuscular Volume 90.6 fL Mean Corpuscular Hemoglobin 28.1 pg Mean Corpuscular Hemoglobin Concent 31.0 g/dL Red Cell Distribution Width 13.8 % Platelet Count 211 10^3/uL Mean Platelet Volume 9.8 fL Neutrophils (%) (Auto) 72.1 % Lymphocytes (%) (Auto) 18.5 % Monocytes (%) (Auto) 7.8 % Neutrophils # (Auto) 5.7 10^3/uL Lymphocytes # (Auto) 1.45 10^3/uL1 Monocytes # (Auto) 0.6 10^3/uL Absolute Immature Granulocyte (auto 0.01 10^3 u/L Absolute Eosinophils (auto) 0.1 10^3/uL Immature Granulocytes % 0.10 % Eosinophils % 1.1 % Basophils % 0.4 % Basophils # 0.0 10^3/uL Prothrombin Time 12.1 SEC Prothrombin Time INR (Non-Therap) 1.2 Activated Partial Thromboplast Time 26.9 SEC D-Dimer 2.15 mg/L Sodium Level 141 mmol/L Potassium Level 3.4 mmol/L Chloride Level 102.0 mmol/L Carbon Dioxide Level 27.1 mmol/L Anion Gap 15.3 Blood Urea Nitrogen 20 mg/dL Creatinine 1.42 mg/dL Estimated GFR () 43.1 Est GFR (CKD-EPI)(Non-Afr Guyanese) 35.6 BUN/Creatinine Ratio 14.0 Glucose Level 72 mg/dL Calcium Level 9.0 mg/dL Magnesium Level 1.6 mg/dL Total Bilirubin 0.4 mg/dL Aspartate Amino Transf (AST/SGOT) 28 U/L Alanine Aminotransferase (ALT/SGPT) 21 U/L Alkaline Phosphatase 211 U/L Total Creatine Kinase 33 U/L Creatine Kinase MB < 0.5 ng/mL Troponin I < 0.02 ng/mL Pro-B-Type Natriuretic Peptide 2582 pg/mL Total Protein 7.4 g/dL Albumin 2.7 g/dL Globulin 4.7 Albumin/Globulin Ratio 0.574 Helicobacter pylori Screen POSITIVE Bedside Glucose 54 71 113 Test 04/25/20 04:42 04/25/20 07:18 White Blood Count 6.0 10^3/uL Red Blood Count 2.89 10^6/uL Hemoglobin 8.3 g/dL Hematocrit 26.0 % Mean Corpuscular Volume 90.0 fL Mean Corpuscular Hemoglobin 28.7 pg Mean Corpuscular Hemoglobin Concent 31.9 g/dL Red Cell Distribution Width 13.8 % Platelet Count 204 10^3/uL Mean Platelet Volume 10.3 fL Neutrophils (%) (Auto) 72.3 % Lymphocytes (%) (Auto) 16.8 % Monocytes (%) (Auto) 8.0 % Neutrophils # (Auto) 4.3 10^3/uL Lymphocytes # (Auto) 1.00 10^3/uL1 Monocytes # (Auto) 0.5 10^3/uL Absolute Immature Granulocyte (auto 0.02 10^3 u/L Absolute Eosinophils (auto) 0.1 10^3/uL Immature Granulocytes % 0.30 % Eosinophils % 2.3 % Basophils % 0.3 % Basophils # 0.0 10^3/uL Sodium Level 140 mmol/L Potassium Level 3.9 mmol/L Chloride Level 106.0 mmol/L Carbon Dioxide Level 28.0 mmol/L Anion Gap 9.9 Blood Urea Nitrogen 20 mg/dL Creatinine 1.42 mg/dL Estimated GFR () 43.1 Est GFR (CKD-EPI)(Non-Afr Guyanese) 35.6 BUN/Creatinine Ratio 14.0 Glucose Level 98 mg/dL Calcium Level 9.1 mg/dL Magnesium Level 1.7 mg/dL Total Bilirubin 0.6 mg/dL Aspartate Amino Transf (AST/SGOT) 31 U/L Alanine Aminotransferase (ALT/SGPT) 22 U/L Alkaline Phosphatase 200 U/L Total Protein 6.4 g/dL Albumin 2.3 g/dL Globulin 4.1 Albumin/Globulin Ratio 0.560 Bedside Glucose 84 Current Medications Medications (Trade) Dose Ordered Sig/Teresa PRN Reason Start Time Stop Time Status Last Admin Albuterol Sulfate (Ventolin) 2.5 mg RTQ4 PRN WHEEZING 04/24/20 14:00 05/24/20 13:59 Albuterol/ Ipratropium (Combivent Respimat 20-100 Mcg) 1 inh RTQ6H 04/24/20 14:00 05/24/20 13:59 04/25/20 05:35 Aripiprazole (Abilify) 5 mg DAILY 04/25/20 09:00 05/25/20 08:59 04/25/20 08:37 Atorvastatin Calcium (Lipitor) 40 mg HS 04/24/20 21:00 05/24/20 20:59 04/24/20 20:51 Bumetanide (Bumex) 1 mg DAILY 04/25/20 09:00 05/25/20 08:59 04/25/20 08:32 Clarithromycin (Biaxin) 250 mg BID 04/24/20 15:00 05/24/20 14:59 04/25/20 08:34 Dextrose (Dextrose 50%-Water Syringe) 25 ml STAT PRN HYPOGLYCEMIA 04/24/20 14:00 05/24/20 13:59 Doxycycline Hyclate (Vibramycin) 100 mg BID 04/24/20 15:00 05/24/20 14:59 04/25/20 08:16 Furosemide (Lasix) 40 mg DAILY 04/25/20 09:00 05/25/20 08:59 04/25/20 09:00 Gabapentin (Neurontin) 400 mg BID 04/24/20 21:00 05/24/20 20:59 04/25/20 08:16 Guaifenesin (Mucinex) 600 mg BID 04/25/20 10:30 05/25/20 10:29 UNV Insulin Glargine (Lantus) 20 unit DAILY 04/25/20 09:00 05/25/20 08:59 04/25/20 09:00 Insulin Human Lispro (Humalog) Humalog. Give when food is... TIDM 04/24/20 18:00 05/24/20 17:59 Magnesium Oxide (Mag-Ox) 400 mg BID 04/25/20 09:00 05/25/20 08:59 Metronidazole (Flagyl) 500 mg BID 04/24/20 15:00 05/24/20 14:59 04/25/20 08:16 Montelukast Sodium (Singulair) 10 mg HS 04/24/20 21:00 05/24/20 20:59 04/24/20 20:51 Nystatin (Nystop) 1 gm DAILY 04/26/20 09:00 05/26/20 08:59 UNV Oxybutynin Chloride (Ditropan) 5 mg BID 04/24/20 21:00 05/24/20 20:59 04/25/20 08:16 Pantoprazole Sodium (Protonix) 40 mg DAILY 04/25/20 09:00 05/25/20 08:59 04/25/20 08:16 Sertraline HCl (Zoloft) 50 mg DAILY 04/25/20 09:00 05/25/20 08:59 04/25/20 08:15 LEVEL 1 SEPSIS INFECTION CRITE: ABX Therapy O2 Sat by Pulse Oximetry: 92 Oxygen Flow Rate: 93.00 Assessment/Plan Assessment/Plan Assessment/Plan 79-year-old female. Medical history includes depression, aortic valve replacement, hyperlipidemia, diabetes mellitus type 2 insulin-dependent, overactive bladder, CHF, COPD, diabetic neuropathy, on Eliquis. Patient with allergies codeine and morphine upset her stomach and penicillin precipitates a rash. Patient describes seeking medical attention after having increased dyspnea and shortness of breath with exertion. Patient describes her symptoms ongoing for over the past month but has progressively gotten worse over the past 3 to 4 days. Patient describes being out of her Lasix for 2weeks. We will continue to diurese and treat COPD. CXR did not reveal any acute abnormalities with lungs no infiltrates or consolidations noted. Elevated D-dimer of 2 will obtain VQ scan however patient is on Eliquis 5 mg twice daily. Patient utilizing 2 L nasal cannula wishes to remain a full code.Patient also tested positive for H. pylori will initiate triple therapy. VQ scan completed pending results. Patient on room air dyspnea has resolved we will continue to encourage incentive spirometry will add some guaifenesin today. Edema still substantial to bilateral lower extremities no acute distress vital signs stable. Plan CHF exacerbation/fluid overload Previous echocardiogram completed by Dr. Donahue in May 2019 revealed left ventricular systolic function is normal, EF of 60% with mild mitral regurgitation and mild to moderate tricuspid regurgitation. Patient describes having a pig valve and aortic valve replacement on Eliquis 5 mg twice daily Patient utilizing Bumex and Lasix daily has been out of her Lasix for over 2 weeks will initiate diuresis 2 g sodium diet Fluid restriction 1200 mL per 24 hours Daily weights I and O COPD Supplemental oxygen available as necessary Combivent and albuterol as needed Singulair Doxycycline Guaifenesin Incentive spirometry H. pylori positive Clarithromycin Metronidazole PPI-Protonix Hypokalemia Continue to monitor electrolytes and replete with p.o. Diabetes mellitus type 2 insulin-dependent Patient utilizes [place] insulin at home will Transition to Lantus with a lower dose Humalog sliding scale Accu-Chek AC at bedtime GERD Protonix Depression Sertraline History of Pig valve-aortic Continue Eliquis therapy Patient wishes to remain a full code DVT prophylaxis patient on Eliquis PPI PPx: Protonix SCOTTY ZELAYA NP Apr 25, 2020 10:31
--- NOTE | 2020-04-25 10:37 | DIREP ---
PROCEDURE:NM LUNG SCAN PERFUSION/MENA COMPARISON:[facility], CR, XRAY CHEST SINGLE VW, 04/24/2020, 12:05 PM. INDICATIONS:dyspnea TECHNIQUE:Following the intravenous administration of 5.3 mCi of technetium 99m MAA an 8 view lung perfusion scan was performed. FINDINGS: There is heterogeneous distribution of radiotracer throughout the bilateral lungs. There is prominence of the cardiac silhouette as well as right greater than left pulmonary artery shadows. Please correlate with echocardiography to evaluate for pulmonary hypertension. No definite matched or mismatched perfusion defect is seen. No suspicious wedge-shaped peripheral perfusion abnormality. CONCLUSION: 1. Heterogeneous distribution of radiotracer throughout the bilateral lungs. No obvious perfusion abnormality to suggest pulmonary embolism, likely low probability. 2. Prominence of the pulmonary artery shadows which may be seen in setting of pulmonary hypertension. Please correlate with echocardiography. Dictated by: Cecil Fam MD on 04/25/2020 at 10:31 AM
[2020-04-25] MEDS ORDERED: NYSTOP TP ONE (10:46)
[2020-04-25] MEDS: MUCINEX PO SCH ×2 (10:53→20:16)
[2020-04-25 12:44] VITALS: BP 139/52
[2020-04-25] MEDS: TUMS PO PRN ×2 (13:49→18:33)
[2020-04-25 17:30] VITALS: BP 145/69
[2020-04-25 19:41] VITALS: BP 138/77
[2020-04-25] MEDS: LIPITOR PO SCH (20:16)
[2020-04-25] MEDS: SINGULAIR PO SCH (20:17)
[2020-04-26 00:50] VITALS: BP 128/68
[2020-04-26] MEDS: COMBIVENT RESPIMAT 20-100 MCG IH SCH (04:16)
[2020-04-26 04:18] VITALS: BP 141/66
[2020-04-26 07:53] LABS: MEAN CORP HGB 28.2 pg (26-34); RED CELL DISTRIBUTION WIDTH 14.1 % (11.5-14.5)
[2020-04-26] MEDS: HUMALOG SQ SCH (08:00)
[2020-04-26 08:01] VITALS: BP 119/56
[2020-04-26 08:06] LABS: CALCIUM 9.2 mg/dL (8.4-10.5); CARBON DIOXIDE 28.9 mmol/L (20.0-32)
[2020-04-26] MEDS: ZOLOFT PO SCH (08:29)
[2020-04-26] MEDS: NEURONTIN PO SCH (08:30)
[2020-04-26] MEDS: FLAGYL PO SCH (08:30)
[2020-04-26] MEDS: DITROPAN PO SCH (08:30)
[2020-04-26] MEDS: MAG-OX PO SCH (08:30)
[2020-04-26] MEDS: PROTONIX PO SCH (08:30)
[2020-04-26] MEDS: MUCINEX PO SCH (08:30)
[2020-04-26] MEDS: LASIX IV SCH (08:31)
[2020-04-26] MEDS: BUMEX IV SCH (08:33)
[2020-04-26] MEDS: VIBRAMYCIN PO SCH (08:33)
[2020-04-26] MEDS: ABILIFY PO SCH (08:33)
[2020-04-26] MEDS: BIAXIN PO SCH (08:34)
[2020-04-26] MEDS: ELIQUIS PO SCH (08:35)
[2020-04-26] MEDS: LANTUS SQ SCH (08:37)
[2020-04-26] MEDS ORDERED: NYSTOP TP SCH (09:00)
[2020-04-26] MEDS ORDERED: FURO20TA3 PO (09:20)
[2020-04-26] MEDS ORDERED: DOXY100T PO (09:20)
[2020-04-26] MEDS ORDERED: CLARITHROMYCIN PO (09:20)
[2020-04-26] MEDS ORDERED: METR250T18 PO (09:20)
[2020-04-26] MEDS ORDERED: NYST60PO TP (09:20)
[2020-04-26] MEDS ORDERED: PANT40TA3 PO (09:20)
--- NOTE | 2020-04-26 09:33 | PRM.DC ---
Discharge Summary Date of Discharge: Apr 26, 2020 Time of Request to Discharge: 09:21 Hospital Course 79-year-old female. Medical history includes depression, aortic valve replacement, hyperlipidemia, diabetes mellitus type 2 insulin-dependent, overactive bladder, CHF, COPD, diabetic neuropathy, on Eliquis. Patient with allergies codeine and morphine upset her stomach and penicillin precipitates a rash. Patient describes seeking medical attention after having increased dyspnea and shortness of breath with exertion. Patient describes her symptoms ongoing for over the past month but has progressively gotten worse over the past 3 to 4 days. Patient describes being out of her Lasix for 2weeks. We will continue to diurese and treat COPD. CXR did not reveal any acute abnormalities with lungs no infiltrates or consolidations noted. Elevated D-dimer of 2 will obtain VQ scan however patient is on Eliquis 5 mg twice daily. Patient utilizing 2 L nasal cannula wishes to remain a full code.Patient also tested positive for H. pylori will initiate triple therapy. VQ scan completed unremarkable. Patient on room air , dyspnea has resolved we will continue to encourage incentive spirometry will add some guaifenesin today. Edema still 2+ to bilateral lower extremities no acute distress vital signs stable. Plan CHF exacerbation/fluid overload Previous echocardiogram completed by Dr. Donahue in May 2019 revealed left ventricular systolic function is normal, EF of 60% with mild mitral regurgitation and mild to moderate tricuspid regurgitation. Patient describes having a pig valve and aortic valve replacement on Eliquis 5 mg twice daily Patient utilizing Bumex and Lasix daily has been out of her Lasix for over 2 weeks will initiate diuresis 2 g sodium diet Fluid restriction 1200 mL per 24 hours Daily weights I and O COPD Supplemental oxygen available as necessary Combivent and albuterol as needed Singulair Doxycycline Guaifenesin Incentive spirometry H. pylori positive Clarithromycin Metronidazole PPI-Protonix Hypokalemia Continue to monitor electrolytes and replete with p.o. Diabetes mellitus type 2 insulin-dependent Patient utilizes T[place]bia LA insulin at home will Transition to Lantus with a lower dose Humalog sliding scale Accu-Chek AC at bedtime GERD Protonix Depression Sertraline History of Pig valve-aortic Continue Eliquis therapy Patient wishes to remain a full code DVT prophylaxis patient on Eliquis PPI PPx: Protonix Patient History: Alzheimer's disease 32 MOTHER, , Age:92 G8 BROTHER, , Age:64 G8 SISTER, , Age:63 Asthma 19 CHILD, Age:57 Chronic obstructive pulmonary disease G8 SISTER, , Age:63 Congestive heart failure 32 MOTHER, , Age:92 33 FATHER, , Age:61 G8 BROTHER, , Age:64 G8 SISTER, , Age:63 19 CHILD, , Age:40 Diabetes mellitus G8 SISTER, , Age:63 19 CHILD, Age:54 FH: bipolar disorder 32 MOTHER, , Age:92 FH: heart disease 32 MOTHER, , Age:92 33 FATHER, , Age:61 G8 BROTHER, , Age:64 G8 SISTER, , Age:63 19 CHILD, , Age:48 19 CHILD, , Age:40 19 CHILD, Age:57 FH: ovarian cancer 19 CHILD, Age:57 FH: schizophrenia 32 MOTHER, , Age:92 FH: uterine cancer 19 CHILD, Age:57 Hypertension G8 SISTER, , Age:63 19 CHILD, Age:57 No known health problems G8 BROTHER, , Age:33 G8 SISTER No Family History of: Cerebrovascular disorder Diabetes insipidus Parkinson's disease General: Alert, Oriented X3, Cooperative, No acute distress HEENT: Atraumatic, PERRLA, EOMI Neck: Supple, No JVD Lungs: Clear to auscultation, Normal air movement Heart: Regular rate, Normal S1, Normal S2, Other (murmur) Abdomen: Normal bowel sounds, Soft, No tenderness Extremities: No clubbing, Other (2+ edema to BLE) Skin: Other (yeast under mammary folds) Neuro: Normal speech, Cranial nerves 3-12 NL Psych/Mental Status: Mental status NL, Mood NL Scheduled Apixaban (Eliquis), 5 MG PO BID, (Reported) Aripiprazole (Abilify), 5 MG PO DAILY, (Reported) Ascorbic Acid (Vitamin C), 1 CAP PO DAILY24, (Reported) Atorvastatin Calcium (Atorvastatin Calcium), 40 MG PO HS, (Reported) Bumetanide (Bumetanide), 1 MG PO AM, (Reported) Cholecalciferol (Vitamin D3) (Vitamin D3), 1,000 UNIT PO DAILY24, (Reported) Doxycycline Hyclate (Doxycycline Hyclate), 100 MG PO BID Fluticasone/Vilanterol (Breo Ellipta 100-25 Mcg INH), 1 EACH IH DAILY24, (Reported) Furosemide (Furosemide), 20 MG PO DAILY24 Gabapentin (Gabapentin), 400 MG PO HS, (Reported) Insulin Degludec (Tresiba), 40 UNITS SQ BID, (Reported) Insulin Lispro (Humalog), 100 UNIT SQ ACHS, (Reported) Metronidazole (Metronidazole), 500 MG PO BID Montelukast Sodium (Montelukast Sodium), 1 TAB PO HS, (Reported) Nystatin (Nystop), 1 GM TP DAILY Pantoprazole Sodium (Protonix), 40 MG PO DAILY Sertraline Hcl (Sertraline Hcl), 50 MG PO DAILY24, (Reported) Solifenacin Succinate (Vesicare), 5 MG PO DAILY, (Reported) [Clarithromycin], 250 MG PO BID Sepsis Evaluation @ Discharge Vital Sign - Last 24 Hours 04/25/20 04/25/20 04/25/20 08:29 08:32 09:00 Temp 99.0 Pulse 75 Resp 22 B/P (MAP) 129/52 (77) 129/52 144/69 Pulse Ox 92 Laboratory Tests Test 04/24/20 12:09 04/24/20 16:36 04/24/20 17:04 04/24/20 18:03 White Blood Count 7.8 10^3/uL Red Blood Count 3.31 10^6/uL Hemoglobin 9.3 g/dL Hematocrit 30.0 % Mean Corpuscular Volume 90.6 fL Mean Corpuscular Hemoglobin 28.1 pg Mean Corpuscular Hemoglobin Concent 31.0 g/dL Red Cell Distribution Width 13.8 % Platelet Count 211 10^3/uL Mean Platelet Volume 9.8 fL Neutrophils (%) (Auto) 72.1 % Lymphocytes (%) (Auto) 18.5 % Monocytes (%) (Auto) 7.8 % Neutrophils # (Auto) 5.7 10^3/uL Lymphocytes # (Auto) 1.45 10^3/uL1 Monocytes # (Auto) 0.6 10^3/uL Absolute Immature Granulocyte (auto 0.01 10^3 u/L Absolute Eosinophils (auto) 0.1 10^3/uL Immature Granulocytes % 0.10 % Eosinophils % 1.1 % Basophils % 0.4 % Basophils # 0.0 10^3/uL Prothrombin Time 12.1 SEC Prothrombin Time INR (Non-Therap) 1.2 Activated Partial Thromboplast Time 26.9 SEC D-Dimer 2.15 mg/L Sodium Level 141 mmol/L Potassium Level 3.4 mmol/L Chloride Level 102.0 mmol/L Carbon Dioxide Level 27.1 mmol/L Anion Gap 15.3 Blood Urea Nitrogen 20 mg/dL Creatinine 1.42 mg/dL Estimated GFR () 43.1 Est GFR (CKD-EPI)(Non-Afr Montenegrin) 35.6 BUN/Creatinine Ratio 14.0 Glucose Level 72 mg/dL Calcium Level 9.0 mg/dL Magnesium Level 1.6 mg/dL Total Bilirubin 0.4 mg/dL Aspartate Amino Transf (AST/SGOT) 28 U/L Alanine Aminotransferase (ALT/SGPT) 21 U/L Alkaline Phosphatase 211 U/L Total Creatine Kinase 33 U/L Creatine Kinase MB < 0.5 ng/mL Troponin I < 0.02 ng/mL Pro-B-Type Natriuretic Peptide 2582 pg/mL Total Protein 7.4 g/dL Albumin 2.7 g/dL Globulin 4.7 Albumin/Globulin Ratio 0.574 Helicobacter pylori Screen POSITIVE Bedside Glucose 54 71 113 Test 04/25/20 04:42 04/25/20 07:18 White Blood Count 6.0 10^3/uL Red Blood Count 2.89 10^6/uL Hemoglobin 8.3 g/dL Hematocrit 26.0 % Mean Corpuscular Volume 90.0 fL Mean Corpuscular Hemoglobin 28.7 pg Mean Corpuscular Hemoglobin Concent 31.9 g/dL Red Cell Distribution Width 13.8 % Platelet Count 204 10^3/uL Mean Platelet Volume 10.3 fL Neutrophils (%) (Auto) 72.3 % Lymphocytes (%) (Auto) 16.8 % Monocytes (%) (Auto) 8.0 % Neutrophils # (Auto) 4.3 10^3/uL Lymphocytes # (Auto) 1.00 10^3/uL1 Monocytes # (Auto) 0.5 10^3/uL Absolute Immature Granulocyte (auto 0.02 10^3 u/L Absolute Eosinophils (auto) 0.1 10^3/uL Immature Granulocytes % 0.30 % Eosinophils % 2.3 % Basophils % 0.3 % Basophils # 0.0 10^3/uL Sodium Level 140 mmol/L Potassium Level 3.9 mmol/L Chloride Level 106.0 mmol/L Carbon Dioxide Level 28.0 mmol/L Anion Gap 9.9 Blood Urea Nitrogen 20 mg/dL Creatinine 1.42 mg/dL Estimated GFR () 43.1 Est GFR (CKD-EPI)(Non-Afr Montenegrin) 35.6 BUN/Creatinine Ratio 14.0 Glucose Level 98 mg/dL Calcium Level 9.1 mg/dL Magnesium Level 1.7 mg/dL Total Bilirubin 0.6 mg/dL Aspartate Amino Transf (AST/SGOT) 31 U/L Alanine Aminotransferase (ALT/SGPT) 22 U/L Alkaline Phosphatase 200 U/L Total Protein 6.4 g/dL Albumin 2.3 g/dL Globulin 4.1 Albumin/Globulin Ratio 0.560 Bedside Glucose 84 Current Medications Medications (Trade) Dose Ordered Sig/Teresa PRN Reason Start Time Stop Time Status Last Admin Albuterol Sulfate (Ventolin) 2.5 mg RTQ4 PRN WHEEZING 04/24/20 14:00 05/24/20 13:59 Albuterol/ Ipratropium (Combivent Respimat 20-100 Mcg) 1 inh RTQ6H 04/24/20 14:00 05/24/20 13:59 04/25/20 05:35 Aripiprazole (Abilify) 5 mg DAILY 04/25/20 09:00 05/25/20 08:59 04/25/20 08:37 Atorvastatin Calcium (Lipitor) 40 mg HS 04/24/20 21:00 05/24/20 20:59 04/24/20 20:51 Bumetanide (Bumex) 1 mg DAILY 04/25/20 09:00 05/25/20 08:59 04/25/20 08:32 Clarithromycin (Biaxin) 250 mg BID 04/24/20 15:00 05/24/20 14:59 04/25/20 08:34 Dextrose (Dextrose 50%-Water Syringe) 25 ml STAT PRN HYPOGLYCEMIA 04/24/20 14:00 05/24/20 13:59 Doxycycline Hyclate (Vibramycin) 100 mg BID 04/24/20 15:00 05/24/20 14:59 04/25/20 08:16 Furosemide (Lasix) 40 mg DAILY 04/25/20 09:00 05/25/20 08:59 04/25/20 09:00 Gabapentin (Neurontin) 400 mg BID 04/24/20 21:00 05/24/20 20:59 04/25/20 08:16 Guaifenesin (Mucinex) 600 mg BID 04/25/20 10:30 05/25/20 10:29 UNV Insulin Glargine (Lantus) 20 unit DAILY 04/25/20 09:00 05/25/20 08:59 04/25/20 09:00 Insulin Human Lispro (Humalog) Humalog. Give when food is... TIDM 04/24/20 18:00 05/24/20 17:59 Magnesium Oxide (Mag-Ox) 400 mg BID 04/25/20 09:00 05/25/20 08:59 Metronidazole (Flagyl) 500 mg BID 04/24/20 15:00 05/24/20 14:59 04/25/20 08:16 Montelukast Sodium (Singulair) 10 mg HS 04/24/20 21:00 05/24/20 20:59 04/24/20 20:51 Nystatin (Nystop) 1 gm DAILY 04/26/20 09:00 05/26/20 08:59 UNV Oxybutynin Chloride (Ditropan) 5 mg BID 04/24/20 21:00 05/24/20 20:59 04/25/20 08:16 Pantoprazole Sodium (Protonix) 40 mg DAILY 04/25/20 09:00 05/25/20 08:59 04/25/20 08:16 Sertraline HCl (Zoloft) 50 mg DAILY 04/25/20 09:00 05/25/20 08:59 04/25/20 08:15 Subjective Subjective No acute events overnight, vital signs stable, VQ scan completed this a.m. Patient dyspnea has resolved Review of Systems Constitutional: no symptoms reported, see HPI, chills, diaphoresis, fever, malaise, weakness, other EENTM: no symptoms reported, see HPI, eye pain, blurred vision, tearing, double vision, ear pain, ear discharge, nose pain, nose congestion, throat pain, throat swelling, mouth pain, mouth swelling, other Respiratory: no symptoms reported, see HPI, cough, orthopnea, shortness of breath, stridor, wheezing, other Cardiovascular: denies no symptoms reported, denies see HPI, denies chest pain; edema; denies palpitations, denies syncope, denies other Gastrointestinal: denies no symptoms reported, denies see HPI, denies abdominal pain, denies constipation, denies diarrhea, denies nausea, denies vomiting, denies other Genitourinary: denies no symptoms reported, denies see HPI, denies discharge, denies dysuria, denies frequency, denies hematuria, denies pain, denies other Musculoskeletal: denies no symptoms reported, denies see HPI, denies back pain, denies gout, denies joint pain, denies joint swelling, denies muscle pain, denies muscle stiffness, denies neck pain, denies other Skin: denies no symptoms reported, denies see HPI, denies change in color, denies change in hair/nails, denies dryness, denies lesions, denies lumps, denies rash, denies other Psychiatric/Neurological: denies no symptoms reported, denies see HPI, denies anxiety, denies depressed, denies emotional problems, denies headache, denies numbness, denies paresthesia, denies pre-existing deficit, denies seizure, denies tingling, denies tremors, denies weakness, denies other All Other Systems: Reviewed and Negative Course Sepsis Screening Results: Posi: NEGATIVE Sepsis Qualifier/Stage: NO DEFINITE RISK Duration or Total Time Spent w: 20 min Vitals & review Data Vital Sign - Last 24 Hours 04/25/20 04/25/20 04/25/20 08:29 08:32 09:00 Temp 99.0 Pulse 75 Resp 22 B/P (MAP) 129/52 (77) 129/52 144/69 Pulse Ox 92 Laboratory Tests Test 04/24/20 12:09 04/24/20 16:36 04/24/20 17:04 04/24/20 18:03 White Blood Count 7.8 10^3/uL Red Blood Count 3.31 10^6/uL Hemoglobin 9.3 g/dL Hematocrit 30.0 % Mean Corpuscular Volume 90.6 fL Mean Corpuscular Hemoglobin 28.1 pg Mean Corpuscular Hemoglobin Concent 31.0 g/dL Red Cell Distribution Width 13.8 % Platelet Count 211 10^3/uL Mean Platelet Volume 9.8 fL Neutrophils (%) (Auto) 72.1 % Lymphocytes (%) (Auto) 18.5 % Monocytes (%) (Auto) 7.8 % Neutrophils # (Auto) 5.7 10^3/uL Lymphocytes # (Auto) 1.45 10^3/uL1 Monocytes # (Auto) 0.6 10^3/uL Absolute Immature Granulocyte (auto 0.01 10^3 u/L Absolute Eosinophils (auto) 0.1 10^3/uL Immature Granulocytes % 0.10 % Eosinophils % 1.1 % Basophils % 0.4 % Basophils # 0.0 10^3/uL Prothrombin Time 12.1 SEC Prothrombin Time INR (Non-Therap) 1.2 Activated Partial Thromboplast Time 26.9 SEC D-Dimer 2.15 mg/L Sodium Level 141 mmol/L Potassium Level 3.4 mmol/L Chloride Level 102.0 mmol/L Carbon Dioxide Level 27.1 mmol/L Anion Gap 15.3 Blood Urea Nitrogen 20 mg/dL Creatinine 1.42 mg/dL Estimated GFR () 43.1 Est GFR (CKD-EPI)(Non-Afr [place]grin) 35.6 BUN/Creatinine Ratio 14.0 Glucose Level 72 mg/dL Calcium Level 9.0 mg/dL Magnesium Level 1.6 mg/dL Total Bilirubin 0.4 mg/dL Aspartate Amino Transf (AST/SGOT) 28 U/L Alanine Aminotransferase (ALT/SGPT) 21 U/L Alkaline Phosphatase 211 U/L Total Creatine Kinase 33 U/L Creatine Kinase MB < 0.5 ng/mL Troponin I < 0.02 ng/mL Pro-B-Type Natriuretic Peptide 2582 pg/mL Total Protein 7.4 g/dL Albumin 2.7 g/dL Globulin 4.7 Albumin/Globulin Ratio 0.574 Helicobacter pylori Screen POSITIVE Bedside Glucose 54 71 113 Test 04/25/20 04:42 04/25/20 07:18 White Blood Count 6.0 10^3/uL Red Blood Count 2.89 10^6/uL Hemoglobin 8.3 g/dL Hematocrit 26.0 % Mean Corpuscular Volume 90.0 fL Mean Corpuscular Hemoglobin 28.7 pg Mean Corpuscular Hemoglobin Concent 31.9 g/dL Red Cell Distribution Width 13.8 % Platelet Count 204 10^3/uL Mean Platelet Volume 10.3 fL Neutrophils (%) (Auto) 72.3 % Lymphocytes (%) (Auto) 16.8 % Monocytes (%) (Auto) 8.0 % Neutrophils # (Auto) 4.3 10^3/uL Lymphocytes # (Auto) 1.00 10^3/uL1 Monocytes # (Auto) 0.5 10^3/uL Absolute Immature Granulocyte (auto 0.02 10^3 u/L Absolute Eosinophils (auto) 0.1 10^3/uL Immature Granulocytes % 0.30 % Eosinophils % 2.3 % Basophils % 0.3 % Basophils # 0.0 10^3/uL Sodium Level 140 mmol/L Potassium Level 3.9 mmol/L Chloride Level 106.0 mmol/L Carbon Dioxide Level 28.0 mmol/L Anion Gap 9.9 Blood Urea Nitrogen 20 mg/dL Creatinine 1.42 mg/dL Estimated GFR () 43.1 Est GFR (CKD-EPI)(Non-Afr Montenegrin) 35.6 BUN/Creatinine Ratio 14.0 Glucose Level 98 mg/dL Calcium Level 9.1 mg/dL Magnesium Level 1.7 mg/dL Total Bilirubin 0.6 mg/dL Aspartate Amino Transf (AST/SGOT) 31 U/L Alanine Aminotransferase (ALT/SGPT) 22 U/L Alkaline Phosphatase 200 U/L Total Protein 6.4 g/dL Albumin 2.3 g/dL Globulin 4.1 Albumin/Globulin Ratio 0.560 Bedside Glucose 84 Current Medications Medications (Trade) Dose Ordered Sig/Teresa PRN Reason Start Time Stop Time Status Last Admin Albuterol Sulfate (Ventolin) 2.5 mg RTQ4 PRN WHEEZING 04/24/20 14:00 05/24/20 13:59 Albuterol/ Ipratropium (Combivent Respimat 20-100 Mcg) 1 inh RTQ6H 04/24/20 14:00 05/24/20 13:59 04/25/20 05:35 Aripiprazole (Abilify) 5 mg DAILY 04/25/20 09:00 05/25/20 08:59 04/25/20 08:37 Atorvastatin Calcium (Lipitor) 40 mg HS 04/24/20 21:00 05/24/20 20:59 04/24/20 20:51 Bumetanide (Bumex) 1 mg DAILY 04/25/20 09:00 05/25/20 08:59 04/25/20 08:32 Clarithromycin (Biaxin) 250 mg BID 04/24/20 15:00 05/24/20 14:59 04/25/20 08:34 Dextrose (Dextrose 50%-Water Syringe) 25 ml STAT PRN HYPOGLYCEMIA 04/24/20 14:00 05/24/20 13:59 Doxycycline Hyclate (Vibramycin) 100 mg BID 04/24/20 15:00 05/24/20 14:59 04/25/20 08:16 Furosemide (Lasix) 40 mg DAILY 04/25/20 09:00 05/25/20 08:59 04/25/20 09:00 Gabapentin (Neurontin) 400 mg BID 04/24/20 21:00 05/24/20 20:59 04/25/20 08:16 Guaifenesin (Mucinex) 600 mg BID 04/25/20 10:30 05/25/20 10:29 UNV Insulin Glargine (Lantus) 20 unit DAILY 04/25/20 09:00 05/25/20 08:59 04/25/20 09:00 Insulin Human Lispro (Humalog) Humalog. Give when food is... TIDM 04/24/20 18:00 05/24/20 17:59 Magnesium Oxide (Mag-Ox) 400 mg BID 04/25/20 09:00 05/25/20 08:59 Metronidazole (Flagyl) 500 mg BID 04/24/20 15:00 05/24/20 14:59 04/25/20 08:16 Montelukast Sodium (Singulair) 10 mg HS 04/24/20 21:00 05/24/20 20:59 04/24/20 20:51 Nystatin (Nystop) 1 gm DAILY 04/26/20 09:00 05/26/20 08:59 UNV Oxybutynin Chloride (Ditropan) 5 mg BID 04/24/20 21:00 05/24/20 20:59 04/25/20 08:16 Pantoprazole Sodium (Protonix) 40 mg DAILY 04/25/20 09:00 05/25/20 08:59 04/25/20 08:16 Sertraline HCl (Zoloft) 50 mg DAILY 04/25/20 09:00 05/25/20 08:59 04/25/20 08:15 LEVEL 1 SEPSIS INFECTION CRITE: None/Not assessed O2 Sat by Pulse Oximetry: 90 Oxygen Flow Rate: 93.00 Plan Assessment 79-year-old female. Medical history includes depression, aortic valve replacement, hyperlipidemia, diabetes mellitus type 2 insulin-dependent, overactive bladder, CHF, COPD, diabetic neuropathy, on Eliquis. Patient with allergies codeine and morphine upset her stomach and penicillin precipitates a rash. Patient describes seeking medical attention after having increased dyspnea and shortness of breath with exertion. Patient describes her symptoms ongoing for over the past month but has progressively gotten worse over the past 3 to 4 days. Patient describes being out of her Lasix for 2weeks. We will continue to diurese and treat COPD. CXR did not reveal any acute abnormalities with lungs no infiltrates or consolidations noted. Elevated D-dimer of 2 will obtain VQ scan which was negative however patient is on Eliquis 5 mg twice daily. Patient utilizing RA, wishes to remain a full code.Patient also tested positive for H. pylori will initiate triple therapy. VQ scan completed Negative for PE. Patient on room air dyspnea has resolved we will continue to encourage incentive spirometry will add some guaifenesin today. Edema still substantial to bilateral lower extremities no acute distress vital signs stable.DC home today with follow up with PCP and Dr Rowan Tavarez, her appt with thais is tuesday. Patient became fluid overloaded likely precipitated by no loop diuretic. Pt claims to follow 2 gram sodium diet , encouraged daily weights, and to follow 1800ml fluid restriction. Will DC home with new RX for Lasix which had run out as well as triple therapy tx for h pylori, Clarithromycin, metronidazole and Protonix to continue for 14 total days with continuation of PPI thereafter. . Will also run short course of Doxy for COPD PPX for total of 5 days. Discharge Disposition: Stable Plan Follow up with PCP and cardiology within one week. CHF exacerbation/fluid overload Previous echocardiogram completed by Dr. Donahue in May 2019 revealed left ventricular systolic function is normal, EF of 60% with mild mitral regurgitation and mild to moderate tricuspid regurgitation. Patient describes having a pig valve and aortic valve replacement on Eliquis 5 mg twice daily Patient utilizing Bumex and Lasix daily has been out of her Lasix for over 2 weeks will initiate diuresis Rx has been sent 2 g sodium diet Fluid restriction 1800 mL per 24 hours Daily weights I and O COPD on RA Combivent and albuterol as needed Singulair Doxycycline Guaifenesin Incentive spirometry continue at home H. pylori positive - 14 day course Clarithromycin Metronidazole PPI-Protonix- continue beyond the 14 days Hypokalemia- resolved Diabetes mellitus type 2 insulin-dependent Patient utilizes [place] insulin at home Humalog sliding scale at home Accu-Chek GERD Protonix Calcium Carb prn Depression Sertraline abilify History of Pig valve-aortic Continue Eliquis therapy SCOTTY ZELAYA NP Apr 26, 2020 09:33
--- NOTE | 2020-04-26 10:22 | NUR ---
Discharged pt to home.Discharge instructions given, prescriptions,and papers signed. Pt IV to L chest removed.Vital signs stable.Pt dressed and transported via w/c to vehicle
--- NOTE | 2020-04-26 10:30 | NUR ---
Discharged pt to home.Discharge instructions given, prescriptions,and papers signed. Pt IV to L chest removed.Vital signs stable.Pt dressed and transported via w/c to vehicle
--- NOTE | 2020-04-26 11:25 | NUR ---
PATIENT LEFT UNIT VIA PERSONAL WHEELCHAIR. DC HOME/SELF-CARE.
[2020-04-26 11:32] VITALS: BP 140/52
== END 2020-04-26 11:25 | disposition home or self-care (01) ==
LOC: ER 11:49 → MS 13:30 → UNDOADMOB 13:30 → UNDODISOB 04-26 11:25
PROVIDERS: ADMIT Family Medicine; ATTEND Family Medicine
DX: I11.0 Hypertensive heart disease with heart failure (principal); I50.9 Heart failure, unspecified; E87.70 Fluid overload, unspecified; J44.9 Chronic obstructive pulmonary disease, unspecified; K29.70 Gastritis, unspecified, without bleeding; B96.81 Helicobacter pylori [H. pylori] as the cause of diseases classified elsewhere; E11.40 Type 2 diabetes mellitus with diabetic neuropathy, unspecified; K21.9 Gastro-esophageal reflux disease without esophagitis; N28.9 Disorder of kidney and ureter, unspecified; E78.5 Hyperlipidemia, unspecified; E87.6 Hypokalemia; I25.2 Old myocardial infarction; N32.81 Overactive bladder; F32.9 Major depressive disorder, single episode, unspecified; Z79.01 Long term (current) use of anticoagulants; Z79.899 Other long term (current) drug therapy; Z88.5 Allergy status to narcotic agent; Z88.0 Allergy status to penicillin; Z90.710 Acquired absence of both cervix and uterus; Z79.4 Long term (current) use of insulin; Z91.14 Patient's other noncompliance with medication regimen; Z95.2 Presence of prosthetic heart valve
CPT/HCPCS: 36415 ×3; 71045; 78580; 80053 ×3; 82550; 82553; 82948 ×3; 83735 ×3; 83880; 84484; 85025 ×2; 85027; 85379; 85610; 85730; 86677; 93005; 96365; 96366 ×2; 96375; 96376; 99285; A9540; G0378 ×4; J1650; J1815 ×3; J1940 ×2; J3475 ×2; J3490

== ENCOUNTER → 2020-06-05 | Outpatient (CLI) | payer MEDICARE, MEDICAID ==
[~2020-06-05] MED LIST changes: +CLARITHROMYCIN PO; +DOXY100T PO; +METR250T18 PO; +NYST60PO TP; +PANT40TA3 PO
== END | disposition home or self-care (01) ==
LOC: NPLAB 14:56
PROVIDERS: ATTEND Nurse Practitioner Adult Health
DX: N39.0 Urinary tract infection, site not specified (principal)
CPT/HCPCS: 87086

== ENCOUNTER → 2020-06-19 | Outpatient (CLI) | payer MEDICARE, MEDICAID | END | disposition home or self-care (01) | LOC: NPLAB 14:58 | PROVIDERS: ATTEND Nurse Practitioner Adult Health | DX: N39.0 Urinary tract infection, site not specified (principal) | CPT/HCPCS: 87086 ==

== ENCOUNTER → 2020-06-27 | Outpatient (CLI) | payer MEDICARE, MEDICAID ==
--- NOTE | 2020-06-27 13:33 | DIREP ---
PROCEDURE:XRAY SPINE LUMBAR MIN 4 VWS COMPARISON:None. INDICATIONS:M54.5 LOW BACK PAIN, M62.81 MUSCLE WEAKNESS TECHNIQUE:AP, lateral, bilateral oblique, and coned down lateral views of the lumbar spine are provided. FINDINGS: ALIGNMENT:Mildly exaggerated lumbar lordosis. 6 mm anterolisthesis of L4 on L5 and L3 on L4. VERTEBRAE:Note is made of loss of height involving L2 with less than 50% loss of height, the findings likely indicate chronic compression.. On the AP view, there is a gentle levoscoliosis of the lumbar spine. The angle of levoscoliosis, as measured from the superior cortex of L1 to the inferior cortex of L4 is 6.6. Mild facet hypertrophy and sclerosis noted. DISK SPACES:Mild ventral osteophytes at T12-L1. Moderate ventral osteophytes along the anterior and superior cortex of the compressed L2. The intervertebral disc spaces otherwise preserved. SPONDYLOLISTHESIS:See above. SACROILIAC JOINTS:Normal. OTHER:Atheromatous calcifications in the infrarenal aorta. No aneurysm is seen. CONCLUSION:Chronic compression of L2 likely a compression fracture. 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 Degenerative anterolisthesis of L3 on L4 and L4 on L5 as described above. Dictated by: Jd Flynn MD on 06/27/2020 at 01:29 PM
== END | disposition home or self-care (01) ==
LOC: RAD 11:29
PROVIDERS: ATTEND Nurse Practitioner Adult Health
DX: S32.029A Unspecified fracture of second lumbar vertebra, initial encounter for closed fracture (principal); M47.816 Spondylosis without myelopathy or radiculopathy, lumbar region; M62.81 Muscle weakness (generalized); M54.5 Low back pain; X58.XXXA Exposure to other specified factors, initial encounter; Y93.89 Activity, other specified; Y92.89 Other specified places as the place of occurrence of the external cause; Y99.8 Other external cause status
CPT/HCPCS: 72110

== ENCOUNTER → 2020-07-29 | Outpatient (CLI) | payer MEDICARE, OTHER ==
[~2020-07-29] MED LIST changes: +PRED20TA PO
== END | disposition home or self-care (01) ==
LOC: NPLAB 16:53
PROVIDERS: ATTEND Family Medicine
DX: I11.0 Hypertensive heart disease with heart failure (principal); I50.20 Unspecified systolic (congestive) heart failure; M62.81 Muscle weakness (generalized); E63.9 Nutritional deficiency, unspecified; I63.9 Cerebral infarction, unspecified
CPT/HCPCS: 84132

== ENCOUNTER → 2020-08-09 | Outpatient (CLI) | payer MEDICARE, OTHER ==
[2020-08-09 17:19] LABS: UA COLOR STRAW
[2020-08-09 17:20] LABS: BILIRUBIN,URINE NEGATIVE (NEGATIVE); UROBILINOGEN,URINE 0.2 E.U./dL (0.2)
== END | disposition home or self-care (01) ==
LOC: LAB 16:32
PROVIDERS: ATTEND Family Medicine
DX: E11.22 Type 2 diabetes mellitus with diabetic chronic kidney disease (principal); N18.4 Chronic kidney disease, stage 4 (severe); I50.20 Unspecified systolic (congestive) heart failure; N39.0 Urinary tract infection, site not specified
CPT/HCPCS: 81000; 81003; 87077; 87086; 87186

== ENCOUNTER → 2020-08-18 | Outpatient (CLI) | payer MEDICARE, OTHER | END | disposition home or self-care (01) | LOC: NPLAB 13:14 | PROVIDERS: ATTEND Family Medicine | DX: N17.9 Acute kidney failure, unspecified (principal) | CPT/HCPCS: 84156 ==

== ENCOUNTER → 2020-09-28 | Outpatient (CLI) | payer MEDICARE, OTHER ==
[~2020-09-28] MED LIST changes: -OMEP40CA41 PO; +OMEP40CA8 PO
[2020-09-28 17:09] LABS: BILIRUBIN,URINE NEGATIVE (NEGATIVE); UA COLOR YELLOW
[2020-09-28 17:10] LABS: UROBILINOGEN,URINE 0.2 E.U./dL (0.2)
== END | disposition home or self-care (01) ==
LOC: LAB 16:44
PROVIDERS: ATTEND Family Medicine
DX: N39.0 Urinary tract infection, site not specified (principal); Z88.8 Allergy status to other drugs, medicaments and biological substances; Z88.0 Allergy status to penicillin
CPT/HCPCS: 81001; 87077; 87086; 87186

== ENCOUNTER → 2020-10-26 | Outpatient (CLI) | payer MEDICARE, OTHER ==
--- NOTE | 2020-10-26 19:08 | DIREP ---
PROCEDURE:CHEST 2 VIEWS COMPARISON:[facility], CR, XRAY CHEST 2 VWS, 04/09/2020, 08:51 AM. [facility], CT, CTA ABDOMEN PELVIS W RUNOFF, 06/22/2019, 02:01 PM. [facility], CR, XRAY CHEST SINGLE VW, 07/03/2020, 03:37 PM. [facility], CR, XRAY CHEST SINGLE VW, 04/24/2020, 12:05 PM. INDICATIONS:COPD FINDINGS: LUNGS/PLEURA:Bibasilar scarring/atelectasis similar to prior examinations. No consolidation, effusion, or pneumothorax is seen. VASCULATURE:Normal. Unremarkable pulmonary vasculature. CARDIAC:Normal heart size. Mitral annular calcifications. Left atrial appendage occluder device noted. MEDIASTINUM:Atherosclerotic mildly tortuous aorta with no visible aneurysm. BONES:Median sternotomy changes. Remote L2 compression deformity. No acute findings. OTHER:Negative. CONCLUSION:No acute cardiopulmonary findings or significant interval change. Dictated by: Dwayne Huynh M.D. on 10/26/2020 at 07:02 PM
== END | disposition home or self-care (01) ==
LOC: RAD 17:26
PROVIDERS: ATTEND Family Medicine
DX: J44.9 Chronic obstructive pulmonary disease, unspecified (principal); I05.8 Other rheumatic mitral valve diseases; I70.0 Atherosclerosis of aorta
CPT/HCPCS: 71046

== ENCOUNTER → 2020-12-31 | Outpatient (CLI) | payer MEDICARE, OTHER ==
[~2020-12-31] MED LIST changes: +MAGN400T51 PO; -MAGN400T9 PO
--- NOTE | 2020-12-31 12:12 | DIREP ---
PROCEDURE:CHEST 2 VIEWS COMPARISON:[facility], CR, XRAY CHEST 2 VWS, 10/26/2020, 05:42 PM. INDICATIONS:WHEEZING AND COUGH FINDINGS: LUNGS/PLEURA:Mild [id number]-right basilar opacification. VASCULATURE:Normal. Unremarkable pulmonary vasculature. CARDIAC:Normal. No cardiac silhouette abnormality or cardiomegaly. MEDIASTINUM:Sternotomy wire and atrial appendage clip. Calcified aorta. BONES:Mild degenerative changes. OTHER:Negative. CONCLUSION:[id number]-right basilar opacities consistent with pneumonia in the proper clinical setting. Dictated by: Oswaldo Harmon M.D. on 12/31/2020 at 12:08 PM
== END | disposition home or self-care (01) ==
LOC: RAD 11:27
PROVIDERS: ATTEND Family Medicine
DX: J06.9 Acute upper respiratory infection, unspecified (principal)
CPT/HCPCS: 71046

== ENCOUNTER → 2021-01-14 | Outpatient (CLI) | payer MEDICARE, OTHER ==
[~2021-01-14] MED LIST changes: +MONT-38 PO; -MONT10TA20 PO
== END | disposition home or self-care (01) ==
LOC: LAB 19:04
PROVIDERS: ATTEND Family Medicine
DX: R05.9 Cough, unspecified (principal)
CPT/HCPCS: 87804

== ENCOUNTER → 2021-02-07 | Outpatient (CLI) | payer MEDICARE, OTHER ==
--- NOTE | 2021-02-07 13:13 | DIREP ---
PROCEDURE:XRAY SHOULDER MIN 2 VWS-RT COMPARISON:None. INDICATIONS:RT SHOULDER PAIN R52 FINDINGS: BONES:Normal. JOINTS:Osteoarthritis of the glenohumeral and acromioclavicular joints. No evidence for dislocation. SOFT TISSUES:Normal. OTHER:Normal. CONCLUSION:Osteoarthritis without acute fracture. Dictated by: Geremias Lau DO on 02/07/2021 at 01:09 PM
--- NOTE | 2021-02-07 13:17 | DIREP ---
PROCEDURE:XRAY HIP MIN 2VW-LT COMPARISON:None. INDICATIONS:LT HIP PAIN R52 FINDINGS: BONES:Normal. JOINTS:Normal. SOFT TISSUES:Normal. OTHER:No additional findings. CONCLUSION:No acute fracture. Dictated by: Geremias Lau DO on 02/07/2021 at 01:13 PM
== END | disposition home or self-care (01) ==
LOC: RAD 12:22
PROVIDERS: ATTEND Family Medicine
DX: M19.011 Primary osteoarthritis, right shoulder (principal)
CPT/HCPCS: 73502; 73030-RT

== ENCOUNTER → 2021-02-27 | Outpatient (CLI) | payer MEDICARE, OTHER ==
[2021-02-27 12:31] LABS: BASOPHIL % 0.3 % (0.0-0.2); EOSINOPHIL # 0.2 10^3/uL (0.0-0.2); EOSINOPHIL % 2.2 % (0.0-5.0); LYMPHOCYTES # 1.46 10^3/uL1 (1.0-4.8); LYMPHOCYTES % 21.4 % (24.0-44.0); MEAN CORP HGB 27.8 pg (26-34); MONOCYTES # 0.5 10^3/uL (0.3-0.8); MONOCYTES % 7.8 % (5.0-12.0); NEUTROPHIL # 4.6 10^3/uL (1.8-7.7); PLATELET COUNT 240 10^3/uL (150-400); RED CELL DISTRIBUTION WIDTH 16.1 % (11.5-14.5)
[2021-02-27 12:48] LABS: CARBON DIOXIDE 25.7 mmol/L (20.0-32)
== END | disposition home or self-care (01) ==
LOC: NPLAB 12:07
PROVIDERS: ATTEND Family Medicine
DX: I50.20 Unspecified systolic (congestive) heart failure (principal); I48.91 Unspecified atrial fibrillation
CPT/HCPCS: 80048; 83880; 85025